=== PATIENT | female | born 1935 | race Caucasian/White ===

== ENCOUNTER → 2022-06-25 | Outpatient (REF) | payer MEDICARE, MEDICAID, SELFPAY ==
[2022-06-25 09:23] LABS: Absolute Lymphocyte Count 0.96 X10^3/uL (0.83-4.51); Absolute Neutrophil Count 2.5 X10^3/uL (2.0-7.7); Basophil# 0.03 X10^3/uL; Basophil% 0.7 % (0-1); Eosinophil# 0.36 X10^3/uL; Eosinophils% 8.3 % (0-5); Hematocrit 30.2 % (37-47); Hemoglobin 9.8 g/dL (12.0-15.0); Lymphocyte # 0.96 X10^3/ul (0.83-4.51); Mean Corp Hgb Conc 32.5 g/dL (32-36); Mean Corpuscular Volume 107.9 fL (81-99); Mean Platelet Vol. 10.8 fl (6.2-12.0); Monocyte# 0.51 X10^3/uL; Monocyte% 11.7 % (0-10); NRBC Flagged by Analyzer 0 % (0-5); Neutrophil # 2.49 X10^3/uL (2.7-7.7); Neutrophil % 57.1 % (47-70); Platelet Count 150 K/mm3 (150-450); RBC Distribution Width SD 59.3 fl (35.1-43.9); White Blood Count 4.4 K/mm3 (4.4-11.0)
[2022-06-25 09:37] LABS: Vitamin B12 798 pg/mL (211-911); Vitamin D,25 Hydroxy 33.7 ng/mL
[2022-06-25 09:43] LABS: Anion Gap 9 (5-15); BUN 44 mg/dL (7-18); BUN/Creat Ratio 8.6 RATIO (10-20); Calcium,Total 9.4 mg/dL (8.5-10.1); Chloride 94 mmol/L (98-107); Creatinine, Serum 5.14 mg/dL (0.55-1.02); EST Glomerular Filtration Rate 8 mL/min (>60); Est Glom Filt Rate - Afr Amer 10 mL/min (>60); Glucose 77 mg/dL (74-106); Magnesium 2.2 mg/dL (1.6-2.6); Potassium 4.7 mmol/L (3.5-5.1); Sodium Level 133 mmol/L (136-145)
== END ==
LOC: OLS.SW1020 05:00
PROVIDERS: Visit Provider Internal Medicine
DX: E78.5 Hyperlipidemia, unspecified (principal); F03.90 Unspecified dementia, unspecified severity, without behavioral disturbance, psychotic disturbance, mood disturbance, and anxiety; N18.6 End stage renal disease; I12.0 Hypertensive chronic kidney disease with stage 5 chronic kidney disease or end stage renal disease; I25.10 Atherosclerotic heart disease of native coronary artery without angina pectoris; K58.1 Irritable bowel syndrome with constipation
CPT/HCPCS: 36415; 80048; 82306; 82607; 83735; 84443; 85025

== ENCOUNTER → 2022-07-02 | Outpatient (REF) | payer MEDICARE, MEDICAID, SELFPAY ==
[2022-07-02 08:37] LABS: Absolute Lymphocyte Count 0.93 X10^3/uL (0.83-4.51); Absolute Neutrophil Count 2.5 X10^3/uL (2.0-7.7); Basophil# 0.04 X10^3/uL; Basophil% 0.9 % (0-1); Eosinophil# 0.38 X10^3/uL; Eosinophils% 8.8 % (0-5); Hematocrit 29.9 % (37-47); Hemoglobin 9.8 g/dL (12.0-15.0); Lymphocyte # 0.93 X10^3/ul (0.83-4.51); Lymphocyte % 21.5 % (19-41); Mean Corp Hgb Conc 32.8 g/dL (32-36); Mean Corpuscular Hgb 35.6 pg (27.0-32.0); Mean Corpuscular Volume 108.7 fL (81-99); Monocyte# 0.44 X10^3/uL; Monocyte% 10.2 % (0-10); NRBC Flagged by Analyzer 0 % (0-5); Neutrophil # 2.53 X10^3/uL (2.7-7.7); Neutrophil % 58.4 % (47-70); Platelet Count 130 K/mm3 (150-450); RBC Distribution Width CV 15.4 % (11.6-14.6); Red Blood Count 2.75 M/mm3 (4.2-5.4); White Blood Count 4.3 K/mm3 (4.4-11.0)
[2022-07-02 09:01] LABS: Albumin, Serum 3.3 g/dL (3.2-5.0); BUN 108 mg/dL (7-18); BUN/Creat Ratio 12.7 RATIO (10-20); Calcium,Total 8.8 mg/dL (8.5-10.1); Chloride 101 mmol/L (98-107); Cholesterol 99 mg/dL (200); Creatinine, Serum 8.49 mg/dL (0.55-1.02); EST Glomerular Filtration Rate 5 mL/min (>60); Est Glom Filt Rate - Afr Amer 6 mL/min (>60); Ferritin 1144 ng/mL (8-252); Glucose 80 mg/dL (74-106); High Density Lipoprotein 50 mg/dL; Iron 60 ug/dL (50-170); Phosphorus 5.3 mg/dL (2.5-4.9); Potassium 5.5 mmol/L (3.5-5.1); Sodium Level 136 mmol/L (136-145); Triglycerides 56 mg/dL; Very Low Density Lipoprotein 11 mg/dL (5-40)
== END ==
LOC: OLS.SW1020 05:00
PROVIDERS: Visit Provider Internal Medicine
DX: E78.5 Hyperlipidemia, unspecified (principal); N18.9 Chronic kidney disease, unspecified; D63.1 Anemia in chronic kidney disease
CPT/HCPCS: 36415; 80061; 80069; 82728; 83540; 85025

== ENCOUNTER → 2022-07-09 | Outpatient (REF) | payer MEDICARE, MEDICAID, SELFPAY ==
[2022-07-09 08:29] LABS: Absolute Neutrophil Count 2.6 X10^3/uL (2.0-7.7); Basophil# 0.02 X10^3/uL; Basophil% 0.5 % (0-1); Eosinophil# 0.43 X10^3/uL; Hematocrit 31.6 % (37-47); Lymphocyte % 18.7 % (19-41); Mean Corp Hgb Conc 31.6 g/dL (32-36); Mean Corpuscular Hgb 34.1 pg (27.0-32.0); Mean Corpuscular Volume 107.8 fL (81-99); Mean Platelet Vol. 11.8 fl (6.2-12.0); Monocyte% 9.3 % (0-10); NRBC Flagged by Analyzer 0 % (0-5); Neutrophil # 2.61 X10^3/uL (2.7-7.7); Platelet Count 139 K/mm3 (150-450); RBC Distribution Width CV 15.1 % (11.6-14.6); RBC Distribution Width SD 59.8 fl (35.1-43.9); Red Blood Count 2.93 M/mm3 (4.2-5.4); White Blood Count 4.3 K/mm3 (4.4-11.0)
[2022-07-09 08:33] LABS: BUN 48 mg/dL (7-18); BUN/Creat Ratio 9.3 RATIO (10-20); Calcium,Total 8.1 mg/dL (8.5-10.1); Chloride 97 mmol/L (98-107); Creatinine, Serum 5.14 mg/dL (0.55-1.02); EST Glomerular Filtration Rate 8 mL/min (>60); Est Glom Filt Rate - Afr Amer 10 mL/min (>60); Glucose 79 mg/dL (74-106); Phosphorus 3.1 mg/dL (2.5-4.9); Potassium 5.1 mmol/L (3.5-5.1); Sodium Level 135 mmol/L (136-145)
== END ==
LOC: OLS.SW1020 05:00
PROVIDERS: Visit Provider Internal Medicine
DX: Z99.2 Dependence on renal dialysis (principal); Z79.899 Other long term (current) drug therapy
CPT/HCPCS: 36415; 80069; 85025

== ENCOUNTER → 2022-08-06 | Outpatient (REF) | payer MEDICARE, MEDICAID, SELFPAY ==
[2022-08-06 09:37] LABS: Albumin, Serum 3.6 g/dL (3.2-5.0); BUN 59 mg/dL (7-18); CPK Total, Creatine Kinase 109 U/L (26-192); Calcium,Total 9.2 mg/dL (8.5-10.1); Chloride 98 mmol/L (98-107); Creatinine, Serum 5.38 mg/dL (0.55-1.02); EST Glomerular Filtration Rate 8 mL/min (>60); Est Glom Filt Rate - Afr Amer 10 mL/min (>60); Glucose 86 mg/dL (74-106); Magnesium 1.9 mg/dL (1.6-2.6); Phosphorus 3.8 mg/dL (2.5-4.9); Potassium 4.8 mmol/L (3.5-5.1); Sodium Level 135 mmol/L (136-145)
== END ==
LOC: OLS.SW500 05:00
PROVIDERS: Visit Provider Internal Medicine
DX: N18.6 End stage renal disease (principal)
CPT/HCPCS: 36415; 80069; 82550; 83735

== ENCOUNTER → 2022-08-19 | Outpatient (REF) | payer MEDICARE, SELFPAY ==
[2022-08-19 08:25] LABS: Absolute Lymphocyte Count 0.79 X10^3/uL (0.83-4.51); Absolute Neutrophil Count 3.9 X10^3/uL (2.0-7.7); Basophil# 0.03 X10^3/uL; Basophil% 0.6 % (0-1); Eosinophil# 0.34 X10^3/uL; Eosinophils% 6.3 % (0-5); Hematocrit 27.2 % (37-47); Hemoglobin 8.9 g/dL (12.0-15.0); Lymphocyte # 0.79 X10^3/ul (0.83-4.51); Lymphocyte % 14.5 % (19-41); Mean Corp Hgb Conc 32.7 g/dL (32-36); Mean Corpuscular Hgb 34.8 pg (27.0-32.0); Mean Corpuscular Volume 106.3 fL (81-99); Mean Platelet Vol. 11.5 fl (6.2-12.0); Monocyte# 0.32 X10^3/uL; Monocyte% 5.9 % (0-10); NRBC Flagged by Analyzer 0 % (0-5); Neutrophil # 3.94 X10^3/uL (2.7-7.7); Neutrophil % 72.3 % (47-70); Platelet Count 123 K/mm3 (150-450); RBC Distribution Width CV 14.2 % (11.6-14.6); RBC Distribution Width SD 55.1 fl (35.1-43.9); Red Blood Count 2.56 M/mm3 (4.2-5.4); White Blood Count 5.4 K/mm3 (4.4-11.0)
[2022-08-19 08:27] LABS: Anion Gap 12 (5-15); BUN 87 mg/dL (7-18); BUN/Creat Ratio 11.9 RATIO (10-20); Calcium,Total 9.2 mg/dL (8.5-10.1); Chloride 102 mmol/L (98-107); EST Glomerular Filtration Rate 6 mL/min (>60); Est Glom Filt Rate - Afr Amer 7 mL/min (>60); Glucose 94 mg/dL (74-106); Potassium 5.2 mmol/L (3.5-5.1); Sodium Level 140 mmol/L (136-145)
== END ==
LOC: OLS.SW 05:00
PROVIDERS: Visit Provider Internal Medicine
DX: R41.82 Altered mental status, unspecified (principal); R41.0 Disorientation, unspecified
CPT/HCPCS: 36415; 80048; 85025

== ENCOUNTER → 2022-09-02 | Outpatient (REF) | payer MEDICARE, SELFPAY | LOC: OLS.SW 04:00 | PROVIDERS: Referring Provider Internal Medicine; Visit Provider Internal Medicine | DX: E03.9 Hypothyroidism, unspecified (principal); N18.6 End stage renal disease | CPT/HCPCS: 36415; 84443 ==

== ENCOUNTER → 2022-09-03 | Outpatient (REF) | payer MEDICARE, SELFPAY ==
[2022-09-03 08:09] LABS: Absolute Lymphocyte Count 0.96 X10^3/uL (0.83-4.51); Basophil# 0.03 X10^3/uL; Basophil% 0.6 % (0-1); Eosinophil# 0.27 X10^3/uL; Eosinophils% 5.8 % (0-5); Hematocrit 28.4 % (37-47); Hemoglobin 9.2 g/dL (12.0-15.0); Lymphocyte # 0.96 X10^3/ul (0.83-4.51); Lymphocyte % 20.8 % (19-41); Mean Corp Hgb Conc 32.4 g/dL (32-36); Mean Corpuscular Hgb 33.8 pg (27.0-32.0); Mean Corpuscular Volume 104.4 fL (81-99); Mean Platelet Vol. 11.8 fl (6.2-12.0); Monocyte# 0.39 X10^3/uL; Monocyte% 8.4 % (0-10); NRBC Flagged by Analyzer 0 % (0-5); Neutrophil # 2.96 X10^3/uL (2.7-7.7); Neutrophil % 64.2 % (47-70); Platelet Count 145 K/mm3 (150-450); RBC Distribution Width CV 14.5 % (11.6-14.6); RBC Distribution Width SD 54.7 fl (35.1-43.9); Red Blood Count 2.72 M/mm3 (4.2-5.4); White Blood Count 4.6 K/mm3 (4.4-11.0)
[2022-09-03 08:15] LABS: Anion Gap 12 (5-15); BUN 51 mg/dL (7-18); BUN/Creat Ratio 9.6 RATIO (10-20); Calcium,Total 9.3 mg/dL (8.5-10.1); Chloride 94 mmol/L (98-107); Creatinine, Serum 5.33 mg/dL (0.55-1.02); EST Glomerular Filtration Rate 8 mL/min (>60); Est Glom Filt Rate - Afr Amer 10 mL/min (>60); Glucose 101 mg/dL (74-106); Potassium 4.5 mmol/L (3.5-5.1); Sodium Level 134 mmol/L (136-145)
== END ==
LOC: OLS.SW 05:00
PROVIDERS: Visit Provider Internal Medicine
DX: I12.0 Hypertensive chronic kidney disease with stage 5 chronic kidney disease or end stage renal disease (principal); N18.9 Chronic kidney disease, unspecified; D64.9 Anemia, unspecified
CPT/HCPCS: 36415; 80048; 85025

== ENCOUNTER 2022-10-17 16:07 | Inpatient (IN) | payer MEDICARE, MEDICAID, SELFPAY ==
[2022-10-17] VITALS (11 sets, daily range): BP systolic 167–223; BP diastolic 46–98; PULSE 58–88; RESP 16; TEMP 36.6–37.2; O2SAT 65–99; BMI 27.6; BMI 26.6
--- NOTE | 2022-10-17 16:30 | EKG12_ITS ---
Test Reason : abnl lans Blood Pressure : / mmHG Vent. Rate : 064 BPM Atrial Rate : 064 BPM P-R Int : 170 ms QRS Dur : 104 ms QT Int : 442 ms P-R-T Axes : 038 004 199 degrees QTc Int : 455 ms Normal sinus rhythm Consider Left ventricular hypertrophy ST/T wave abnormality: Consider LVH repolarziation vs myocardial ischemia Abnormal ECG Confirmed by MENDEZ OCHOA, AG ([id number]), international editorial producer AMILCAR WELLINGTON ([id number]) on 10/22/2022 12:58:01 PM Referred By: Tal Confirmed By:AG SIMMS MD
--- NOTE | 2022-10-17 16:31 | EX.ED.DYSGE1 ---
HPI History of Present Illness Chief Complaint: Abn Labs Informant: patient Narrative Narrative: Patient was sent in for an elevated troponin. I do not know the back story of why this was ordered. However, the patient does state that she had a bad episode of epigastric and lower chest pain that she thinks was about 2 weeks ago. It did not last more than a few minutes as she recalls. She was told that it was just an upset stomach and it would get better. My suspicion is that her physician heard the story and order this troponin out of caution. But her troponin is significantly elevated at 651. She is asymptomatic now. She states she has not been having dyspnea or chest pain since that 1 event. She initially denied any history of heart disease but then she states that she did have a stent in her heart somewhere in the past. I also note that she had right carotid endarterectomy surgery before. She is on aspirin. When I went back to check the patient, I asked her the story again. She now tells me that she had this episode about 2 weeks ago. But she also tells me that 2 days ago she had an episode of discomfort in her chest. She felt short of breath. She felt her heart pounding. She states the nurse there got her oxygen and did everything she could do for me. This lasted what sounds like an hour or 2 and she has felt good since. Now I am concerned that the patient has had 2 episodes of chest pain in the last 2 weeks with elevated troponin and slightly abnormal EKG. [facility] Medical History Anemia Atherosclerotic heart disease End stage renal disease Hypertensive chronic kidney disease Hypothyroidism IBS (irritable bowel syndrome) Allergy/AdvReac Type Severity Reaction Status Date / Time codeine Allergy NEEDS Verified 10/17/22 16:08 FOLLOW-UP Social History Smoking Status: Never smoker ROS ROS ED Constitutional Constitutional ED: Denies chills or fever(s) Eyes Eyes: Denies change in vision ENT ENT ED: Denies rhinorrhea or sore throat Cardiovascular Cardiovascular: Reports chest pain and other Details: Episode about 2 weeks ago as in history of present illness. no symptoms now ; Denies palpitations or racing heartbeat Respiratory/Chest Respiratory/Chest: Denies cough or dyspnea Gastrointestinal Gastrointestinal: Reports abdominal pain and other Details: Patient had the episode of epigastric pain about 2 weeks ago. But none now. She has been eating and drinking fine. ; Denies nausea or vomiting Genitourinary Genitourinary ED: Denies hematuria Musculoskeletal Musculoskeletal: Denies back pain or neck pain Neurologic Neurologic: Denies headache(s) Endocrine Endocrinology: Denies polydipsia or polyuria Hematologic/Lymphatic Hematologic/Lymphatic: Denies anemia Allergic/Immunologic Allergic/Immunologic ED: Denies urticaria EXAM Physical Exam Const Vital Signs: 10/17/22 16:09 10/17/22 16:12 10/17/22 17:07 Temperature 97.8 F Temperature Source Temporal Pulse Rate 65 78 Respiratory Rate 16 16 Respiratory Effort Normal Respiratory Pattern Normal Blood Pressure 217/72 H 179/78 H Blood Pressure Mean 120 111 Pulse Ox 95 99 Oxygen Delivery Method Room Air Room Air 10/17/22 17:48 10/17/22 18:00 10/17/22 19:00 Temperature Temperature Source Pulse Rate 61 78 68 Respiratory Rate 16 16 16 Respiratory Effort Respiratory Pattern Blood Pressure 216/67 H 203/86 H 223/94 H Blood Pressure Mean 116 125 137 Pulse Ox 65 99 95 Oxygen Delivery Method Room Air Room Air Positive well nourished General Appearance ED: NAD HEENT Reports moist mucous membranes Eyes General Eye ED: Negative for scleral icterus Neck supple and no JVD Neck Narrative: Patient is a right carotid endarterectomy scar that is well-healed. Chest Wall inspection of chest normal Resp normal respiratory effort and clear to auscultation bilaterally Cardio regular rate and regular rhythm GI normal to inspection, nondistended, normoactive bowel sounds and non-tender Back/Spine no CVA tenderness Extremity Extremity Narrative: Shunt has good frail and left upper arm for her dialysis. She gets dialysis Friday and Friday. General Extremety ED: Negative for tenderness Neuro Neuro Narrative: Patient is awake and oriented. She is not the best informant for times in some details but overall is pretty reasonable. She does have history of mild dementia. Psych mental status grossly normal Skin no rashes or lesions noted MDM MDM MDM Narrative Medical decision making narrative: Chest x-ray shows mild atelectasis. CBC shows mild anemia at 9.9. This is not new. Electrolytes show no marked abnormalities other than elevated BUN/creatinine consistent with her renal failure and dialysis. But her troponin was still up. Its 554. This has come down somewhat. But this may match an event that occurred about 2 days ago. She has nonspecific EKG changes that could be LVH but could also be residual recent NC. She will be brought in the hospital. She does take daily aspirin. We will increase from baby aspirin to full strength. Lab Data Attestation: I reviewed the patient's lab results. Labs: Laboratory Results - last 24 hr 10/17/22 10/17/22 16:18 16:18 WBC 4.9 RBC 2.74 L Hgb 9.9 L Hct 30.3 L MCV 110.6 H MCH 36.1 H MCHC 32.7 RDW Std Deviation 61.4 H RDW Coeff of Sotero 16.1 H Plt Count 187 MPV 11.2 Immature Gran % (Auto) 1.000 H Neut % (Auto) 57.7 Lymph % (Auto) 24.0 [place] % (Auto) 11.4 H Eos % (Auto) 4.9 Baso % (Auto) 1.0 Absolute Neuts (auto) 2.8 Absolute Lymphs (auto) 1.18 Nucleated RBC % 0 Sodium 135 L Potassium 3.9 Chloride 96 L Carbon Dioxide 31.0 Anion Gap 8 BUN 43 H Creatinine 5.40 H Estim Creat Clear Calc 6.96 Est GFR (MDRD) Af Amer 10 L Est GFR (MDRD) Non-Af 8 L BUN/Creatinine Ratio 8.0 L Glucose 128 H Calcium 9.2 Troponin I High Sens 554 H* Radiography Diagnostic Testing: Clinical Impression(s) from Imaging Studies Chest X-Ray 10/17/22 16:40 IMPRESSION: Left lung base atelectasis. Electronically Signed: Gómez Auguste MD at 16:50 EST , X-ray hints of very mild left lung atelectasis. EKG Initial EKG: Comments: EKG done due to history of elevated troponin read by me showed normal sinus rhythm with overall rate of 64. No ventricular ectopy is noted. There is some signs of LVH. There are some diffuse changes that could be LVH but also could be recent NC with some T wave inversions. [place] interval, QRS duration and QTc are normal. I do not have a prior EKG available in our system to compare to. Discharge Plan Triage Chief Complaint: Abn Labs ED Provider: Jeffrey Parada Dx/Rx/DC Orders Clinical Impression: Non-ST elevation NC (NSTEMI), Acute electrocardiogram changes, Chronic kidney failure Primary Care Provider: Cat Holman Referrals: Cat Holman MD [Primary Care Provider] - Disposition Disposition: Acute Care Hospital [facility]
--- NOTE | 2022-10-17 16:40 | RAD_ITS ---
INDICATION: Chest pain EXAMINATION/TECHNIQUE: X-RAY - XR Chest 1 View COMPARISON: None. FINDINGS: LINES/DEVICES: None. LUNGS: Left lung base atelectasis. No consolidation, edema or effusion. No pneumothorax. MEDIASTINUM AND CARDIOVASCULAR STRUCTURES: Mild cardiomegaly with normal mediastinal contours. RAD/Chest 1 View (Portable) IMPRESSION: Left lung base atelectasis. Electronically Signed: Gómez Auguste MD at 16:50 EST ,
[2022-10-17 17:03] LABS: Absolute Lymphocyte Count 1.18 X10^3/uL (0.83-4.51); Absolute Neutrophil Count 2.8 X10^3/uL (2.0-7.7); Basophil# 0.05 X10^3/uL; Eosinophil# 0.24 X10^3/uL; Eosinophils% 4.9 % (0-5); Hematocrit 30.3 % (37-47); Hemoglobin 9.9 g/dL (12.0-15.0); Lymphocyte # 1.18 X10^3/ul (0.83-4.51); Mean Corp Hgb Conc 32.7 g/dL (32-36); Mean Corpuscular Hgb 36.1 pg (27.0-32.0); Mean Corpuscular Volume 110.6 fL (81-99); Mean Platelet Vol. 11.2 fl (6.2-12.0); Monocyte# 0.56 X10^3/uL; Monocyte% 11.4 % (0-10); NRBC Flagged by Analyzer 0 % (0-5); Neutrophil # 2.84 X10^3/uL (2.7-7.7); Neutrophil % 57.7 % (47-70); Platelet Count 187 K/mm3 (150-450); RBC Distribution Width CV 16.1 % (11.6-14.6); RBC Distribution Width SD 61.4 fl (35.1-43.9); Red Blood Count 2.74 M/mm3 (4.2-5.4); White Blood Count 4.9 K/mm3 (4.4-11.0)
[2022-10-17 17:30] LABS: Anion Gap 8 (5-15); BUN 43 mg/dL (7-18); Calcium,Total 9.2 mg/dL (8.5-10.1); Chloride 96 mmol/L (98-107); EST Glomerular Filtration Rate 8 mL/min (>60); Est Glom Filt Rate - Afr Amer 10 mL/min (>60); Estimated Creatinine Clearance 6.96 ml/min; Glucose 128 mg/dL (74-106); Potassium 3.9 mmol/L (3.5-5.1); Sodium Level 135 mmol/L (136-145); Troponin-I HS 554 pg/mL (3.0-54.0)
--- NOTE | 2022-10-17 18:04 | EKG12_ITS ---
Test Reason : repeat cp Blood Pressure : / mmHG Vent. Rate : 058 BPM Atrial Rate : 058 BPM P-R Int : 164 ms QRS Dur : 102 ms QT Int : 450 ms P-R-T Axes : 021 007 224 degrees QTc Int : 441 ms Sinus bradycardia Consider Left ventricular hypertrophy ST/T wave abnormality: Consider LVH repolarization vs myocardial ischemia Abnormal ECG Confirmed by MENDEZ OCHOA, AG ([id number]), film editor supervisor AMILCAR WELLINGTON ([id number]) on 10/22/2022 12:58:49 PM Referred By: Tal Confirmed By:AG SIMMS MD
--- NOTE | 2022-10-17 18:09 | NURSING ---
NO OLD EKGS
--- NOTE | 2022-10-17 20:03 | HP.PCM.HOS_ITS ---
HPI - General General Date of Admission: 10/17/22 Date of Service: 10/17/22 Chief Complaint: Chest pain HPI Narrative The patient is an 87 y/o F w PMHx: CAD s/p PCI, Suspected carotid disease s/p BL CEA, HTN, HLD, Hypothyroidism, Chronic anemia, IBS, Dementia unclear type with unclear behavioral disturbance history, Chronic Hyperkalemia, Anxiety who presents to the [facility] ED on 10/17/22 with history of epigastric and lower chest discomfort approximately 2 weeks prior lasting only minutes however her PCP at that time had ordered repeat troponin out of caution and this was reportedly elevated at 651 prompting referral the ED for evaluation. Patient currently is asymptomatic and has had no episodes since with no chest discomfort or dyspnea. She then notes another episode 2-3 days prior with chest pounding sensation, midsternal with dyspnea which resolved quickly. She rates the discomfort that she had on a scale of 1-10 approximately 3-4 out of 10 at its height. Work-up in the ED included T97.8, heart rate 65, BP 217/72, respiratory rate 16, 95% on room air, CBC with WC 4.9, hemoglobin 9.9, MCV 110.6, platelet 180 with increase d immature granulocytes, BMP with sodium 135, chloride 96, BUN/10 and 43/5.40, glucose 128, troponin 554, chest x-ray with left lung base atelectasis, EKG with sinus rhythm with diffuse changes possibly LVH with some T wave inversions with no prior EKG for comparison. In the ED patient administered FS ASA. [facility] Medical History (Updated 10/17/22 @ 23:[address] Estrellita Mcdowell MD) Anemia Asthma Atherosclerotic heart disease Carotid disease, bilateral Dementia DVT (deep venous thrombosis) End stage renal disease Hypertension Hypothyroidism IBS (irritable bowel syndrome) TIA (transient ischemic attack) Allergy/AdvReac Type Severity Reaction Status Date / Time codeine Allergy NEEDS Verified 10/17/22 16:08 FOLLOW-UP Family History (Updated 10/17/22 @ 23:[address] Estrellita Mcdowell MD) Mother Diabetes Father Diabetes Surgical History (Updated 10/17/22 @ 23:[address] Estrellita Mcdowell MD) H/O coronary angioplasty History of back surgery History of total left knee replacement S/p bilateral carotid endarterectomy Social History (Updated 10/17/22 @ 23:[address] Estrellita Mcdowell MD) household members: none housing: care home Smoking Status: Never smoker alcohol intake: never substance use type: does not use ROS ROS Narrative Admission Review of Systems: CONSTITUTIONAL: No weight loss, fever, chills, + weakness or fatigue. HEENT: Eyes: No visual loss, blurred vision, double vision or yellow sclerae. Ears, Nose, Throat: No hearing loss, sneezing, congestion, runny nose or sore throat. SKIN: No rash or itching, lesions, wounds. CARDIOVASCULAR: + Chest pain, No palpitations, edema, orthopnea, syncopal events. RESPIRATORY: + Shortness of breath, No cough or sputum, wheezing, hemoptysis. GASTROINTESTINAL: No anorexia, nausea, vomiting or diarrhea, abdominal pain, melena, BRBPR. GENITOURINARY: No dysuria, frequency, urgency or retention. NEUROLOGICAL: No headache, dizziness, syncope, paralysis, ataxia, numbness or tingling in the extremities, focal weakness, change in bowel or bladder control, seizure. MUSCULOSKELETAL: + muscle, back pain, joint pain or stiffness. HEMATOLOGIC: + anemia, bleeding or bruising. LYMPHATICS: No enlarged nodes. No history of splenectomy. PSYCHIATRIC: + history of anxiety. ENDOCRINOLOGIC: No reports of sweating, cold or heat intolerance. No polyuria or polydipsia. ALLERGIES: No history of asthma, hives, eczema or rhinitis. Vital Signs Vital Signs Vital Signs: 10/17/22 16:09 10/17/22 16:12 10/17/22 17:07 Temperature 97.8 F Temperature Source Temporal Pulse Rate 65 78 Respiratory Rate 16 16 Respiratory Effort Normal Respiratory Pattern Normal Blood Pressure 217/72 H 179/78 H Blood Pressure Mean 120 111 Pulse Ox 95 99 Oxygen Delivery Method Room Air Room Air 10/17/22 17:48 10/17/22 18:00 10/17/22 19:00 Temperature Temperature Source Pulse Rate 61 78 68 Respiratory Rate 16 16 16 Respiratory Effort Respiratory Pattern Blood Pressure 216/67 H 203/86 H 223/94 H Blood Pressure Mean 116 125 137 Pulse Ox 65 99 95 Oxygen Delivery Method Room Air Room Air Weight Weight: 132 lb 7.965 oz Body Mass Index (BMI) 27.6 Physical Exam Narrative Physical Examination: General: Awake, alert, oriented x 3 and cooperative, seated upright in the ED bed in no apparent distress, denies any current chest discomfort or dyspnea. Skin: Normal color, normal turgor, no icterus, no cyanosis except occasional staged ecchymoses. HEENT: AT/NC, EOMI, PERRLA, MMM, no carotid bruits or JVD noted. Lungs: Mild diminished, greater bases, poor effort, no rales, ronchi or wheezing. Heart: Currently regular rate and rhythm; no gallop, rub audible, no reproducible chest discomfort. Abdomen: Soft, NTTP, ND, distant normal BS, no HSM. Extremities: No cyanosis, clubbing, or edema. Neurological: Patient awake, alert, oriented as noted, cognitive function intact; pupils equally reactive to light and accommodation, cranial nerves II- XII grossly normal, moving all 4 extremities, no focal deficits, strength moderately globally Natacha secondary to acute complaints. Psychiatric: Affect appears fatigued otherwise normal, no acute evidence of depressive or anxiety feelings. Results Lab / Micro Data Result Diagrams: 10/17/22 16:18 10/17/22 16:18 Labs: Laboratory Results - last 24 hr 10/17/22 16:18: WBC 4.9, RBC 2.74 L, Hgb 9.9 L, Hct 30.3 L, MCV 110.6 H, MCH 36.1 H, MCHC 32.7, RDW Std Deviation 61.4 H, RDW Coeff of Sotero 16.1 H, Plt Count 187, MPV 11.2, Immature Gran % (Auto) 1.000 H, Neut % (Auto) 57.7, Lymph % (Auto) 24.0, [place] % (Auto) 11.4 H, Eos % (Auto) 4.9, Baso % (Auto) 1.0, Absolute Neuts (auto) 2.8, Absolute Lymphs (auto) 1.18, Nucleated RBC % 0 10/17/22 16:18: Sodium 135 L, Potassium 3.9, Chloride 96 L, Carbon Dioxide 31.0, Anion Gap 8, BUN 43 H, Creatinine 5.40 H, Estim Creat Clear Calc 6.96, Est GFR (MDRD) Af Amer 10 L, Est GFR (MDRD) Non-Af 8 L, BUN/Creatinine Ratio 8.0 L, Glucose 128 H, Calcium 9.2, Troponin I High Sens 554 H* Radiology Impression Chest X-Ray 10/17/22 16:40 IMPRESSION: Left lung base atelectasis. Electronically Signed: Gómez Auguste MD at 16:50 EST , Assessment & Plan Assessment/Plan (1) Non-ST elevation [place] (NSTEMI): PLAN: Plan The patient is an 87 y/o F w PMHx: CAD s/p PCI, Suspected carotid disease s/p BL CEA, HTN, HLD, Hypothyroidism, Chronic anemia, IBS, Dementia unclear type with u nclear behavioral disturbance history, Chronic Hyperkalemia, Anxiety who presents to the [facility] ED on 10/17/22 with history of epigastric and lower chest discomfort approximately 2 weeks prior lasting only minutes however her PCP at that time had ordered repeat troponin out of caution and this was reportedly elevated at 651 prompting referral the ED for evaluation. #1. Chest Pain w/ Acute NSTEMI: ED evaluation with troponin 554, chest x-ray with left lung base atelectasis, EKG with sinus rhythm with diffuse changes possibly LVH with some T wave inversions with no prior EKG for comparison. Will admit to PCU, maintain on a monitored bed, continue serial cardiac enzymes and EKGs. Obtain magnesium level upon admission. Start Heparin drip. Continue medical. Cardiology consulted. ECHO requested. Maintain NPO after midnight. ASA, NG, morphine. #2. ESRD: ESRD on HD MTWF, admission BUN/10 and 43/5.40, similar to prior noted, nephrology consulted, pending. #3. Dementia, unclear type with unclear behavioral disturbance history: We will continue patient home donepezil regimen, maintain on fall and aspiration precautions, therapies and case management consulted. #4. Chronic Hyperkalemia: Patient chronically takes lokelma outpatient, currently potassium 3.9, last noted regimen filled 10/02/2022 for 14 tablets only, will cautiously monitor and if necessary may dose with Kayexalate as Lo kelma is not on formulary. #5. Chronic anemia, macrocytic, AOCD: Admission hemoglobin 9.9, MCV 110.6, baseline appears primarily 9 range, stable, continue to trend, continue supplementations. #6. CAD: Status post PCI per patient report, we will continue patient home aspirin, statin, losartan, Coreg home regimen. #7. Hypertension: Continue home regimen including amlodipine, Coreg, losartan, doxazosin, hydralazine, hydrochlorothiazide, PRN hydralazine. #8. Hyperlipidemia: We will continue patient on statin therapy #9. Hypothyroidism: We will continue patient home levothyroxine regimen. #10. Anxiety: We will continue patient home BuSpar regimen. #11. Carotid disease: Per physical exam likely history of carotid disease and evidence of right CEA, continue aspirin, statin, hypertensive regimen as noted. #12. DVT prophylaxis: SCDs, heparin drip. #13. CODE status: Patient CHRIS is her friend at least per records specifically [place] and living will is currently in place. Discussed CODE status at length including difference between FULL code, DNR-CCA and DNR-CC status. Following discussions about the differences in these status, requested Full Code status. Advanced Care Planning Face to Face Time: 16 minutes. Charges/Coding Visit Charges Inpatient E&M: 02288 Init Hosp L3 Procedures Hospitalists Procedures: [id number] Advncd Care Plan 30 Min
[2022-10-17] MEDS: Aspirin 81 MG TAB.CHEW 243 MG PO (20:53)
--- NOTE | 2022-10-17 21:20 | EKG12_ITS ---
Test Reason : AM EKG Blood Pressure : / mmHG Vent. Rate : 058 BPM Atrial Rate : 058 BPM P-R Int : 176 ms QRS Dur : 100 ms QT Int : 494 ms P-R-T Axes : 053 040 221 degrees QTc Int : 484 ms Sinus bradycardia Left ventricular hypertrophy ST/T wave abnormality: Consider LVH repolarization vs myocardial ischemia Abnormal ECG Confirmed by MENDEZ OCHOA, AG ([id number]), science editor AMILCAR WELLINGTON ([id number]) on 10/24/2022 9:54:10 AM Referred By: Confirmed By:AG SIMMS MD
[2022-10-17 22:03] LABS: Magnesium 2.2 mg/dL (1.6-2.6); Phosphorus 2.5 mg/dL (2.5-4.9)
[2022-10-17 23:15] LABS: Troponin-I HS 473 pg/mL (3.0-54.0)
[2022-10-17] MEDS: Carvedilol 6.25 MG Tablet PO (23:51)
[2022-10-17] MEDS: Atorvastatin Calcium 20 MG Tablet PO (23:51)
[2022-10-17] MEDS: hydrALAZINE 50 MG Tablet PO (23:51)
[2022-10-17] MEDS: Donepezil HCl 5 MG Tablet PO (23:52)
[2022-10-18] VITALS (20 sets, daily range): BP systolic 95–201; BP diastolic 39–59; PULSE 47–64; RESP 14–19; TEMP 36.5–36.9; O2SAT 94–99
[2022-10-18 00:06] LABS: International Normalized Ratio 1.2; Prothrombin Time (Protime)PT. 15.1 SECONDS (11.7-14.9)
[2022-10-18 00:07] LABS: Partial Thromboplast Time 38.6 Seconds (24.1-36.2)
[2022-10-18] MEDS: Doxazosin 1 MG Tablet 2 MG PO ×3 (00:14→21:10)
[2022-10-18 00:17] LABS: Troponin-I HS 492 pg/mL (3.0-54.0)
[2022-10-18] MEDS: Heparin Injection (Vial) 5,000 UNIT/ML VIAL 3500 UNIT IV (00:18)
[2022-10-18] MEDS: HEPARIN/D5w 25,000 UNITS 25,000 UNITS/250 ML IV.SOLN. 7 UNITS CONT INF (00:18)
[2022-10-18] MEDS: 0.9% Saline Lock 10 ML Syringe IV ×3 (00:20→12:57)
[2022-10-18 06:19] LABS: Absolute Lymphocyte Count 0.89 X10^3/uL (0.83-4.51); Absolute Neutrophil Count 2.1 X10^3/uL (2.0-7.7); Basophil# 0.03 X10^3/uL; Basophil% 0.8 % (0-1); Eosinophil# 0.32 X10^3/uL; Eosinophils% 8.5 % (0-5); Hematocrit 25.7 % (37-47); Hemoglobin 8.5 g/dL (12.0-15.0); Lymphocyte # 0.89 X10^3/ul (0.83-4.51); Lymphocyte % 23.6 % (19-41); Mean Corp Hgb Conc 33.1 g/dL (32-36); Mean Corpuscular Hgb 36.8 pg (27.0-32.0); Mean Corpuscular Volume 111.3 fL (81-99); Monocyte# 0.42 X10^3/uL; Monocyte% 11.1 % (0-10); NRBC Flagged by Analyzer 0 % (0-5); Neutrophil # 2.11 X10^3/uL (2.7-7.7); Platelet Count 147 K/mm3 (150-450); RBC Distribution Width CV 16.4 % (11.6-14.6); RBC Distribution Width SD 63.1 fl (35.1-43.9); Red Blood Count 2.31 M/mm3 (4.2-5.4); White Blood Count 3.8 K/mm3 (4.4-11.0)
[2022-10-18 06:31] LABS: Partial Thromboplast Time 87.1 Seconds (24.1-36.2)
[2022-10-18 06:49] LABS: Troponin-I HS 412 pg/mL (3.0-54.0)
[2022-10-18 06:52] LABS: AST(SGOT) 22 U/L (15-37); Alanine Aminotransfer ALT/SGPT 27 U/L (13-56); Albumin, Serum 2.7 g/dL (3.2-5.0); Alkaline Phosphatase 68 U/L (45-117); Anion Gap 7 (5-15); BUN 53 mg/dL (7-18); BUN/Creat Ratio 8.5 RATIO (10-20); Calcium,Total 8.3 mg/dL (8.5-10.1); Chloride 101 mmol/L (98-107); Cholesterol 122 mg/dL (200); EST Glomerular Filtration Rate 7 mL/min (>60); Est Glom Filt Rate - Afr Amer 8 mL/min (>60); Estimated Creatinine Clearance 5.83 ml/min; Globulin 2.7 g/dL (2.2-4.2); Glucose 100 mg/dL (74-106); High Density Lipoprotein 48 mg/dL; Potassium 3.7 mmol/L (3.5-5.1); Protein, Total 5.4 g/dL (6.4-8.2); Sodium Level 138 mmol/L (136-145); Triglycerides 43 mg/dL; Very Low Density Lipoprotein 9 mg/dL (5-40)
--- NOTE | 2022-10-18 08:57 | ECHOD_ITS ---
Reason For Study: S/P MA Procedure This was a 2D Doppler, Color Flow transthoracic echocardiogram. Exam performed portable in patient room. Left Ventricle Normal LV size. Mild concentric left ventricular hypertrophy. Left ventricular systolic function is normal. The estimated ejection fraction is 55 %. Stage 2 diastolic dysfunction. No regional wall motion abnormalities noted. Right Ventricle Normal RV size. Normal systolic function. Atria The left atrium is moderately enlarged. Normal right atrium. No doppler evidence for ASD. Mitral Valve There is moderate to severe mitral annular calcification. Extension of the mitral annular calcification onto the base of the posterior mitral valve leaflet. Moderate (2+) eccentric mitral valve insufficiency. Tricuspid Valve Normal tricuspid valve. Mild to moderate (1-2+) eccentric tricuspid valve insufficiency. Right ventricular systolic pressure estimated to be 79 mmHg. Severe pulmonary hypertension. Aortic Valve Trisinus/trileaflet aortic valve. Mild diffuse aortic valve thickening. Mild focal aortic valve calcification. Pulmonic Valve The pulmonic valve is not well visualized. Trivial pulmonic valve insufficiency. Great Vessels Normal sized aortic root. Calcified aortic root. Pericardium/Pleural No pericardial effusion. MMode/2D Measurements & Calculations LVIDd: 4.9 cm IVSd: 1.3 cm Ao root diam: 3.2 cm LVIDs: 3.7 cm LVPWd: 1.4 cm RVDd: 3.3 cm FS: 24.6 % LAV(MOD-sp4): 105.7 ml LVAd ap4: 25.9 cm2 SV(MOD-sp4): 29.6 ml LVLd ap4: 7.6 cm EDV(MOD-sp4): 73.1 ml EDV(sp4-el): 74.9 ml LVAs ap4: 19.0 cm2 LVLs ap4: 7.2 cm ESV(MOD-sp4): 43.5 ml ESV(sp4-el): 42.2 ml EF(MOD-sp4): 40.5 % EF(sp4-el): 43.6 % SV(sp4-el): 32.7 ml LA A4 area: 30.1 cm2 LA dimension(2D): 4.7 cm RA A4 area: 15.0 cm2 Time Measurements MV dec time: 0.22 sec Doppler Measurements & Calculations MV E max turner: 119.2 cm/sec Lat Peak E' Turner: 10.3 cm/sec Med Peak E' Turner: 4.4 cm/sec MV A max turner: 106.2 cm/sec E/E' lat: 11.6 E/E' med: 26.9 MV E/A: 1.1 MV V2 max: 135.1 cm/sec Ao V2 max: 190.7 cm/sec MV max P.3 mmHg MV dec slope: 542.5 cm/sec2 Ao max P.6 mmHg MV V2 mean: 73.7 cm/sec Ao V2 mean: 130.1 cm/sec MV mean P.6 mmHg Ao mean P.6 mmHg MV V2 VTI: 43.1 cm Ao V2 VTI: 48.5 cm AV (velocity ratio): 0.79 LV V1 max: 146.7 cm/sec PA V2 max: 105.6 cm/sec TR max turner: 398.9 cm/sec LV V1 max P.7 mmHg PA V2 mean: 77.2 cm/sec TR max P.7 mmHg LV V1 mean P.4 mmHg LV V1 mean: 96.3 cm/sec LV V1 VTI: 38.5 cm ECHO/Echo Complete Interpretation Summary Left ventricular systolic function is normal. The estimated ejection fraction is 55 %. Mild concentric left ventricular hypertrophy. The left atrium is moderately enlarged. There is moderate to severe mitral annular calcification. Extension of the mitral annular calcification onto the base of the posterior mi tral valve leaflet. Moderate (2+) eccentric mitral valve insufficiency. Mild to moderate (1-2+) eccentric tricuspid valve insufficiency. Mild diffuse aortic valve thickening. Mild focal aortic valve calcification. Trivial pulmonic valve insufficiency. Calcified aortic root. Right ventricular systolic pressure estimated to be 79 mmHg. Severe pulmonary hypertension. Stage 2 diastolic dysfunction. Ordering Physician: Gómez Pascal Referring Physician: AGGIE GODWIN Performed By: Antonia Romero RCS
--- NOTE | 2022-10-18 09:06 | CON.PCM.CA_ITS ---
Assessment & Plan Assessment/Plan (1) Non-ST elevation UT (NSTEMI): PLAN: The patient has abnormal cardiac enzymes compatible with a non-ST segment elevation UT. This may be related to an acute coronary syndrome with a type I event based upon the patient's history superimposed upon her cardiovascular risk factors and previous cardiovascular diagnosis. A component of elevated cardiac enzymes secondary to her chronic renal insufficiency/failure cannot necessarily be excluded. Based upon the patient's history, her risk factors, her previous diagnosis, and her objective findings with her cardiac enzymes and her electrocardiogram, there is concern of an acute coronary syndrome with a type I event warranting further evaluation and care. This would include further evaluation with a transthoracic echocardiogram to evaluate left ventricular wall motion and systolic function. It would also include further evaluation with a diagnostic cardiac catheterization to reassess her coronary anatomy for the need for additional revascularization therapy. In the interim she would continue medical management which would include aspirin, nitrates as needed, her beta-blockers (carvedilol/Coreg), afterload reducing agents (her ARB-losartan), and lipid-lowering agents with her statin (atorvastatin). She was also placed on anticoagulant therapy with IV heparin. This will be adjusted in and around the time of her cardiac catheterization procedure. (2) CAD (coronary artery disease): PLAN: The patient has a history of CAD. The details are unknown at this time. An attempt is being made to retrieve her previous [facility] medical records for continuity of care. In the interim she will continue evaluation and care as noted above. (3) S/P PTCA (percutaneous transluminal coronary angioplasty): PLAN: The patient has a history of PCI. The details are unknown at this time. Again, an attempt is being made to retrieve her previous [facility] medical records for continuity of care. As noted above, based upon her ongoing issues, she will continue noninvasive and invasive valuation. (4) Carotid disease, bilateral: PLAN: The patient has a history of carotid artery disease. She has undergone carotid artery percutaneous intervention and carotid artery endarterectomy. This does increase her risk for cardiovascular disease as well. She will continue medical management as deemed appropriate. (5) HLD (hyperlipidemia): PLAN: The patient has a history of hyperlipidemia. She will continue medical therapy with her statin therapy-atorvastatin. (6) HTN (hypertension): PLAN: The patient has a history of hypertension. Her blood pressure will need to be monitored and her medications adjusted accordingly. 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 Her cardiovascular evaluation will need to be coordinated with her dialysis therapy. (8) Anemia: PLAN: The patient has a history of anemia. It appears that this is thought to be related to her chronic renal insufficiency. This will also be taken into consideration with the need for additional evaluation and care from a cardiac standpoint both medically and otherwise. (9) Dementia: PLAN: The patient is reported to have a history of dementia. The patient does have a POA who assists her in making her decisions. 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 She states this was placed several years ago. Addt'l Comments As noted above, the patient's case was discussed and reviewed with the patient, her POA via telephone conversation, and Dr. Jung. Status post reviewing the patient's case with the POA, the POA agreed with furt her evaluation and care from a cardiovascular standpoint including diagnostic cardiac catheterization. Thank you for allowing me to participate in the care of your patient. Please don't hesitate to call if any issues arise. This note was generated using a voice recognition system and there may be incorrect words, spelling or punctuation that were not noted when reviewing the office note prior to saving. HPI Consult Data Date of Consult: 10/18/22 HPI Narrative HPI Narrative: PRASANNA VARGAS, is a 87 year old white female who presents for c ardiovascular auscultation based upon concerns of chest pain concerning for angina pectoris, abnormal cardiac enzymes concerning for non-ST segment elevation UT, superimposed upon a history of CAD, PCI, carotid artery disease status post percutaneous intervention and carotid artery endarterectomy, t hromboembolic disease status post IVC filter placement, hyperlipidemia, hypertension, hypothyroidism, end-stage renal disease on chronic hemodialysis, and chronic anemia-possibly related to her end-stage renal disease all superimposed upon a history of dementia. According to the patient and according to the patient's power of securities attorney (via telephone conversation in the patient's room) the patient has been having chest discomfort at her extended care facility which has been previously attributed to indigestion. According to the power of securities attorney she requested laboratory studies and ECGs to be performed as she states the patient has presented this way in the past with her cardiovascular di caydene. Based upon results of her studies-being considered abnormal-she was brought to the hospital for further evaluation. Since her hospitalization she has been noted to have abnormal high-sensitivity troponin I levels. She has had ECGs performed which demonstrated sinus rhythm, consideration for LVH, and ST and T wave changes potentially compatible with LVH repolarization although myocardial ischemia cannot be excluded. Her chest x-ray was reviewed. It did not appear to demonstrate any acute cardiopulmonary disease process. The radiology report comments on atelectasis. According to the patient and her POA she has undergone previous cardiovascular evaluation through the [facility] system. This included a diagnostic cardiac catheterization and a PCI. The results are unavailable for review at this time. The patient also states that she has a history of a cardiac murmur. She does not know the details of her cardiac murmur. The patient states that she has been an active person throughout her life. 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 [facility] Medical History (Updated 10/18/22 @ 09:[address] Gómez Pascal MD) Anemia Asthma Atherosclerotic heart disease Carotid disease, bilateral Dementia DVT (deep venous thrombosis) End stage renal disease Hypertension Hypothyroidism IBS (irritable bowel syndrome) TIA (transient ischemic attack) Home Medications aspirin 81 mg tablet,delayed release 81 mg PO DAILY clot prevention 10/18/22 [History Last Taken Unknown] calcium acetate(phosphat bind) 667 mg tablet 667 mg PO 3XD Binder 10/18/22 [History Last Taken Unknown] carvedilol 6.25 mg tablet 6.25 mg PO BID heart 10/18/22 [History Last Taken Unknown] donepezil 5 mg tablet 2.5 mg PO QHS dementia 10/18/22 [History Last Taken Unknown] hydralazine 50 mg tablet 50 mg PO 2XD hypertension 10/18/22 [History Last Taken Unknown] levothyroxine 100 mcg tablet 100 mcg PO SUSA thyroid 10/18/22 [History Last Taken Unknown] levothyroxine 200 mcg tablet 200 mcg PO MOTUWEFR hypothyroidism 10/18/22 [History Last Taken Unknown] Allergy/AdvReac Type Severity Reaction Status Date / Time codeine Allergy NEEDS Verified 10/17/22 16:08 FOLLOW-UP Family History (Updated 10/17/22 @ 23:[address] Estrellita Mcdowell MD) Mother Diabetes Father Diabetes Surgical History (Updated 10/18/22 @ 09:[address] Gómez Pascal MD) H/O coronary angioplasty History of back surgery History of total left knee replacement S/p bilateral carotid endarterectomy Social History (Updated 10/17/22 @ 23:[address] Estrellita Mcdowell MD) household members: none housing: custodial Smoking Status: Never smoker alcohol intake: never substance use type: does not use ROS Constitutional Constitutional: Reports as per HPI Eyes Eyes: Reports as per HPI ENT HEENT: Reports as per HPI Cardiovascular Cardiovascular: Reports chest pain at rest Respiratory/Chest Respiratory/Chest: Reports cough Gastrointestinal Gastrointestinal: Reports as per HPI Genitourinary Genitourinary: Reports as per HPI Musculoskeletal Musculoskeletal: Reports as per HPI Integumentary Integumentary: Reports as per HPI Neurologic Neurologic: Reports other Details: Dementia Physical Exam Narrative This is a pleasant 87-year-old white female who appears to be resting comfortably at the moment in no acute distress. Const alert and no apparent distress Orientation / Consciousness: awake HEENT normocephalic, head/scalp atraumatic and hearing grossly normal bilaterally Eyes PERRL, EOMs intact bilaterally, conjunctivae normal and no scleral icterus Neck full ROM, supple and no JVD Carotids: normal carotid upstroke Resp normal respiratory effort and clear to auscultation bilaterally Cardio regular rate, regular rhythm, S1 normal heart sound and S2 normal heart sound Heart Sounds: murmur systolic III/ soft mid left sternal border and LVOT Bruits: other Other Details: Left arm: AV fistula: Positive bruit GI normal to inspection, nondistended, normoactive bowel sounds Extremity no pedal edema Skin no rashes or lesions noted Psych Psych Narrative: Dementia Risk Stratification Risk Stratification Applicable: Yes Age >/= 65: Yes >/= 3 CAD Risk Factors (HTN, HLD, DM, family hx of CAD, or current smoker): Yes Aspirin Use in the Past 7 Days: Yes Severe Angina (>/= episodes in 24 hours): Yes EKG ST Changes >/= 0.5mm: Yes Positive Cardiac Marker: Yes GAYATRI Risk Stratification Score: 6 GAYATRI % Risk: 41% Risk Procedure Criteria Type of Procedure Procedure Type: Elective Elective Risks - COVID COVID Risk Discussion: The surgeon/proceduralist and patient have discussed in detail the risk of exposure to and/or potential harm posed by the COVID-19 virus with having a surgery/procedure at this time versus the risk of delaying the surgery/procedure. It is not possible to know either the risk of delaying the surgery or procedure or chance of getting an infection with perfect accuracy, but a joint decision was made between the patient and the surgeon/proceduralist to proceed at this time with the scheduled surgery/procedure as indicated on the consent form. Objective Data Vital Signs: Vital Signs Temp Pulse Resp BP Pulse Ox O2 Del Method 97.9 F 57 L 16 158/45 H 94 Room Air 10/18/22 04:46 10/18/22 07:00 10/18/22 04:46 10/18/22 04:46 10/18/22 04:46 10/18/22 08:17 Oxygen Delivery Method Room Air Weight: 127 lb 6.835 oz Body Mass Index (BMI) 26.6 Intake & Output: Intake and Output for Last 24 Hours 10/16/22 10/17/22 10/18/22 23:59 23:59 23:59 Intake Total 39.9 / 39.9 Balance 39.9 / 39.9 Lab / Micro Data Result Diagrams: 10/18/22 05:55 10/18/22 05:55 Labs: Laboratory Results - last 24 hr 10/17/22 16:18: WBC 4.9, RBC 2.74 L, Hgb 9.9 L, Hct 30.3 L, MCV 110.6 H, MCH 36.1 H, MCHC 32.7, RDW Std Deviation 61.4 H, RDW Coeff of Sotero 16.1 H, Plt Count 187, MPV 11.2, Immature Gran % (Auto) 1.000 H, Neut % (Auto) 57.7, Lymph % (Auto) 24.0, [place] % (Auto) 11.4 H, Eos % (Auto) 4.9, Baso % (Auto) 1.0, Absolute Neuts (auto) 2.8, Absolute Lymphs (auto) 1.18, Nucleated RBC % 0 10/17/22 16:18: Sodium 135 L, Potassium 3.9, Chloride 96 L, Carbon Dioxide 31.0, Anion Gap 8, BUN 43 H, Creatinine 5.40 H, Estim Creat Clear Calc 6.96, Est GFR (MDRD) Af Amer 10 L, Est GFR (MDRD) Non-Af 8 L, BUN/Creatinine Ratio 8.0 L, Glucose 128 H, Calcium 9.2, Troponin I High Sens 554 H* 10/17/22 16:18: Phosphorus 2.5, Magnesium 2.2 10/17/22 22:08: Troponin I High Sens 473 H* 10/17/22 23:45: Troponin I High Sens 492 H* 10/17/22 23:45: PT 15.1 H, INR 1.2, APTT 38.6 H 10/18/22 05:55: WBC 3.8 L, RBC 2.31 L, Hgb 8.5 L, Hct 25.7 L, MCV 111.3 H, MCH 36.8 H, MCHC 33.1, RDW Std Deviation 63.1 H, RDW Coeff of Sotero 16.4 H, Plt Count 147 L, MPV 11.0, Immature Gran % (Auto) 0.000, Neut % (Auto) 56.0, Lymph % (Auto) 23.6, [place] % (Auto) 11.1 H, Eos % (Auto) 8.5 H, Baso % (Auto) 0.8, Absolute Neuts (auto) 2.1, Absolute Lymphs (auto) 0.89, Nucleated RBC % 0 10/18/22 05:55: Sodium 138, Potassium 3.7, Chloride 101, Carbon Dioxide 30.0, Anion Gap 7, BUN 53 H, Creatinine 6.20 H, Estim Creat Clear Calc 5.83, Est GFR (MDRD) Af Amer 8 L, Est GFR (MDRD) Non-Af 7 L, BUN/Creatinine Ratio 8.5 L, Gluco se 100, Calcium 8.3 L, Total Bilirubin 0.50, AST 22, ALT 27, Alkaline Phospha tase 68, Total Protein 5.4 L, Albumin 2.7 L, Globulin 2.7, Albumin/Globulin Ratio 1.0, Triglycerides 43, Cholesterol 122, LDL Cholesterol 65, VLDL Cholest ronak 9, HDL Cholesterol 48 10/18/22 05:55: Troponin I High Sens 412 H* 10/18/22 05:55: APTT 87.1 H Cardiology Labs/Tests 10/17/22 16:18: WBC 4.9, RBC 2.74 L, Hgb 9.9 L, Hct 30.3 L, MCV 110.6 H, MCH 36.1 H, MCHC 32.7, Plt Count 187, MPV 11.2, Immature Gran % (Auto) 1.000 H, Neut % (Auto) 57.7, Lymph % (Auto) 24.0, [place] % (Auto) 11.4 H, Eos % (Auto) 4.9, Baso % (Auto) 1.0, Absolute Neuts (auto) 2.8, Nucleated RBC % 0 10/17/22 16:18: Sodium 135 L, Potassium 3.9, Chloride 96 L, Carbon Dioxide 31.0, Anion Gap 8, BUN 43 H, Creatinine 5.40 H, Est GFR (MDRD) Af Amer 10 L, Est GFR (MDRD) Non-Af 8 L, BUN/Creatinine Ratio 8.0 L, Glucose 128 H, Calcium 9.2 10/17/22 16:18: Phosphorus 2.5, Magnesium 2.2 10/17/22 23:45: PT 15.1 H, INR 1.2, APTT 38.6 H 10/18/22 05:55: WBC 3.8 L, RBC 2.31 L, Hgb 8.5 L, Hct 25.7 L, MCV 111.3 H, MCH 36.8 H, MCHC 33.1, Plt Count 147 L, MPV 11.0, Immature Gran % (Auto) 0.000, Neut % (Auto) 56.0, Lymph % (Auto) 23.6, [place] % (Auto) 11.1 H, Eos % (Auto) 8.5 H, Baso % (Auto) 0.8, Absolute Neuts (auto) 2.1, Nucleated RBC % 0 10/18/22 05:55: Sodium 138, Potassium 3.7, Chloride 101, Carbon Dioxide 30.0, Anion Gap 7, BUN 53 H, Creatinine 6.20 H, Est GFR (MDRD) Af Amer 8 L, Est GFR (MDRD) Non-Af 7 L, BUN/Creatinine Ratio 8.5 L, Glucose 100, Calcium 8.3 L, Total Bilirubin 0.50, Triglycerides 43, Cholesterol 122, LDL Cholesterol 65, VLDL Cholesterol 9, HDL Cholesterol 48 10/18/22 05:55: APTT 87.1 H Rhythm: Sinus rhythm EKG: As noted above ECHO: Pending Radiography Diagnostic Testing: Radiology Impression Chest X-Ray 10/17/22 16:40 IMPRESSION: Left lung base atelectasis. Electronically Signed: Gómez Auguste MD at 16:50 EST ,
--- NOTE | 2022-10-18 09:31 | CASEMGMT ---
Tertiary facilities in-network with patient's insurance: [facility], [facility], , [facility], [facility], and [facility]
[2022-10-18] MEDS: hydrALAZINE 50 MG Tablet PO ×2 (09:56→21:10)
[2022-10-18] MEDS: Carvedilol 6.25 MG Tablet PO ×2 (09:57→21:10)
[2022-10-18] MEDS: Aspirin E.C. 81 MG Tablet PO (09:57)
[2022-10-18] MEDS: 0.9% Normal Saline 1,000 ML 15 ML IV (10:07)
[2022-10-18] MEDS: amLODIPine 5 MG Tablet PO (10:10)
--- NOTE | 2022-10-18 10:22 | NURSING ---
Called [facility], obtained phone consent with second RN Trace Rodriguez to Heart Catheterization today with Dr. Pascal. When asked if patient could receive blood products if needed, Anusha stated Only if the blood is vaccine free so this RN marked no for blood products. Xiomy, ferryboat pilot made aware of documentation for consent of procedure and blood products.
[2022-10-18] MEDS: 0.9% Normal Saline 1,000 ML 75 ML IV (12:55)
--- NOTE | 2022-10-18 13:02 | CL.D_ITS ---
Patient Name: PRASANNA VARGAS Study Date: 10/18/2022 Performing: Gómez Pascal MD Ht: 58 inches 147.32 cm : 1935 Wt: 127.6 lbs 57.8 kg Age: 87 Gender: female BSA: 1.5 PROCEDURE(S) PERFORMED [id number]-(51027)LHC/COR CLINICAL PROFILE AND INDICATIONS Indications: Worsening Angina, ACS <= 24 hrs, Suspected CAD Heart Failure: None Stress/Imaging Stress/Image Study Performed: No Angina Classification Anginal Classification w/in 2 Weeks: CCS IV CAD Presentations: Non-STEMI. CONCLUSIONS [place] Multivessel CAD RECOMMENDATIONS Risk factor modification Medical therapy Case discussed / reviewed with Dr. Ramachandran of Interventional Cardiology: options are tertiary care center evaluation for CABG vs. high risk PCI of the LM/LAD and RCA. Case discussed / reviewed with the patient and her POA. S/P discussion of the case, the POA elected to proceed with conservative medical management and no further cardiac evaluation / procedures at a tertiary care center. Cased discussed / reviewed with Dr. Jung of the [facility] hospitalist staff. DESCRIPTION OF PROCEDURE The patient arrived to the procedure lab. The risks and benefits of the procedure as well as a full description of our services here and current unavailability of surgical backup were fully explained to the patient and/or their significant other prior to the catheterization. The Timeout was completed, verifying the correct patient and procedure. The patient's procedural site was prepped and draped in the usual fashion. Local anesthetic was given subcutaneously to right groin region with Lidocaine 2%. Using a modified Seldinger technique, arterial access was obtained via the right femoral artery, a 4Fr sheath was inserted Left Coronary Artery selective angiography was performed in multiple views using a 4 Fr. JL4 catheter. Right Coronary Artery selective angiography was then performed in multiple views using a 4 Fr. 3DRC catheter.The arterial sheath was pulled and manual compression applied until hemostasis is achieved. CORONARY ANGIOGRAPHY DOMINANCE: Right Dominant LEFT HEART ASSESSMENT Left Ventricular Ejection Fraction: Not assessed LEFT MAIN: LM: ostial area: calcified, Catheter engagement: decreased arterial wave form / pressure damping, ostial/proximal: taperin % Stenosis LEFT ANTERIOR DESCENDING ARTERY: MID LAD: Previously placed stent has an instent irregular: 85 % restenosis CIRCUMFLEX ARTERY: Mild luminal irregularities RIGHT CORONARY ARTERY: OSTIAL RCA: ostial area: calcified, Catheter engagement: decreased arterial wave form / pressure damping, 50 % Stenosis PROX RCA: Mild luminal irregularities MID RCA: ectatic / aneurysmal appearing with irrgegular / ulcerated plaque appearing 75 % stenosis, diffuse: 75 % Stenosis COMPLICATIONS No Complications PROCEDURE MEDICATIONS Fentanyl 50 mcg IV Versed 1 mg IV Oxygen: 2 L/min via nasal cannula Oxygen: 5 L/min via nasal cannula SUMMARY OF HEMODYNAMIC DATA Time AIR REST ECG 11:22:59 AO 172/41 (85) SA 11:56:32 AIR REST 13:00:51 Signed By Gómez Pascal MD On 10/22/2022 11:36:39 Signed By Gómez Pascal MD On 10/18/2022 13:01:24 Gómez Pascal MD
[2022-10-18] MEDS: Isosorbide Mononitrate 30 MG Tablet PO (13:44)
--- NOTE | 2022-10-18 13:57 | CASEMGMT ---
Social Work Pt is a nursing home resident at [facility]. SW met with pt and introduced self and role of SW. Pt confirms that [facility] is her home and she plans to return there upon discharge. Pt friend Anusha Madden was in the room and agreeable to discharge plan. Clinicals faxed to [facility] and updated on discharge plan. Plan: [facility], when medically ready NIK Engel
--- NOTE | 2022-10-18 15:39 | CHAPLAIN ---
Type of Pastoral Visit _x__ Initial Visit ___ Follow-up Visit ___ On-call Visit ___ General Patient Visit ___ Spiritual Assessment ___ Family Conference ___ Bereavement ___ Rapid Response ___ Code Blue ___ Other (describe below) Pastoral Care Referral From _x__ Patient ___ Family ___ Nurse ___ Physician ___ Nanotechnology Engineering Technologist ___ Bar Catcher ___ Other (describe below) Sacrament/Intervention _x__ Active listening ___ Anointing ___ Taoism ___ Bereavement ___ Communion ___ Mary exploration ___ _x__ Life review _x__ Prayer ___ Reconciliation ___ Sacrament of Sick ___ Supportive presence ___ Wedding ___ Other (describe below) Pastoral Comments 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
--- NOTE | 2022-10-18 18:40 | PCM.PN.HOSP ---
Subjective Subjective Patient was seen and examined today, she was alert but showed signs of confusion. Her POA was contacted and gave permission for the patient undergo a cardiac cath, this was performed today and showed severe triple-vessel disease, the POA was contacted about this and elected to treat the patient medically rather than transfer her to another facility. I had lengthy discussions with cardiology about her care today. Objective Data Objective Data Vital Signs: Vital Signs Temp Pulse Resp BP Pulse Ox O2 Del Method 97.9 F 47 L 19 H 112/39 L 97 Room Air 10/18/22 16:45 10/18/22 17:45 10/18/22 17:45 10/18/22 17:45 10/18/22 17:45 10/18/22 17:45 Oxygen Delivery Method Room Air Weight: 57.8 kg Body Mass Index (BMI) 26.6 Intake & Output: Intake and Output for Last 24 Hours 10/16/22 10/17/22 10/18/22 23:59 23:59 23:59 Intake Total 450.5 / 450.5 Balance 450.5 / 450.5 Lab / Micro Data Result Diagrams: 10/18/22 05:55 10/18/22 05:55 Labs: Laboratory Results - last 24 hr 10/17/22 16:18: Phosphorus 2.5, Magnesium 2.2 10/17/22 22:08: Troponin I High Sens 473 H* 10/17/22 23:45: Troponin I High Sens 492 H* 10/17/22 23:45: PT 15.1 H, INR 1.2, APTT 38.6 H 10/18/22 05:55: WBC 3.8 L, RBC 2.31 L, Hgb 8.5 L, Hct 25.7 L, MCV 111.3 H, MCH 36.8 H, MCHC 33.1, RDW Std Deviation 63.1 H, RDW Coeff of Sotero 16.4 H, Plt Count 147 L, MPV 11.0, Immature Gran % (Auto) 0.000, Neut % (Auto) 56.0, Lymph % (Auto) 23.6, [place] % (Auto) 11.1 H, Eos % (Auto) 8.5 H, Baso % (Auto) 0.8, Absolute Neuts (auto) 2.1, Absolute Lymphs (auto) 0.89, Nucleated RBC % 0 10/18/22 05:55: Sodium 138, Potassium 3.7, Chloride 101, Carbon Dioxide 30.0, Anion Gap 7, BUN 53 H, Creatinine 6.20 H, Estim Creat Clear Calc 5.83, Est GFR (MDRD) Af Amer 8 L, Est GFR (MDRD) Non-Af 7 L, BUN/Creatinine Ratio 8.5 L, Glucose 100, Calcium 8.3 L, Total Bilirubin 0.50, AST 22, ALT 27, Alkaline Phosphatase 68, Total Protein 5.4 L, Albumin 2.7 L, Globulin 2.7, Albumin/Globulin Ratio 1.0, Triglycerides 43, Cholesterol 122, LDL Cholesterol 65, VLDL Cholesterol 9, HDL Cholesterol 48 10/18/22 05:55: Troponin I High Sens 412 H* 10/18/22 05:55: APTT 87.1 H Radiography Diagnostic Testing: Radiology Impression Echocardiogram 10/18/22 08:57 Interpretation Summary Left ventricular systolic function is normal. The estimated ejection fraction is 55 %. Mild concentric left ventricular hypertrophy. The left atrium is moderately enlarged. There is moderate to severe mitral annular calcification. Extension of the mitral annular calcification onto the base of the posterior mitral valve leaflet. Moderate (2+) eccentric mitral valve insufficiency. Mild to moderate (1-2+) eccentric tricuspid valve insufficiency. Mild diffuse aortic valve thickening. Mild focal aortic valve calcification. Trivial pulmonic valve insufficiency. Calcified aortic root. Right ventricular systolic pressure estimated to be 79 mmHg. Severe pulmonary hypertension. Stage 2 diastolic dysfunction. Ordering Physician: Gómez Pascal Referring Physician: AGGIE GODWIN Performed By: Antonia Romero RCS Physical Exam Const alert, no apparent distress and healthy appearing Constitutional Narrative: Patient is alert but confused, she answers simple questions appropriately at times. General Appearance: cooperative, well kempt and well developed Orientation / Consciousness: awake, oriented to person, oriented to place and oriented to time HEENT normocephalic, head/scalp atraumatic, moist oral mucous membranes and oropharynx normal Eyes PERRL, EOMs intact bilaterally and conjunctivae normal Neck supple, no JVD, thyroid normal and no carotid bruits General: trachea midline Resp normal respiratory effort, no retractions, no use of accessory muscles and clear to auscultation bilaterally Auscultation: Negative for rales, rhonchi or wheezes Cardio regular rate, regular rhythm, S1 normal heart sound, S2 normal heart sound, no rub and no gallops Cardio Narrative: Is a 2/6 systolic murmur noted at the apex and left sternal border GI normal to inspection, nondistended, normoactive bowel sounds, soft to palpation, non-tender and non-distended Extremity no clubbing, cyanosis or edema Skin no rashes or lesions noted General Skin Exam: no breakdown Neuro CN's II-XII intact bilaterally, no focal motor deficits and no sensory deficits noted Neuro Narrative: Patient is alert but confused Sensorium / Orientation: awake and alert Speech: speech normal Psych Psych Narrative: Patient is alert but confused, she does not appear agitated or depressed Assessment & Plan Assessment/Plan (1) Non-ST elevation [place] (NSTEMI): PLAN: Plan 1. [id number]'s cardiac medications will be adjusted by cardiology #2 triple-vessel coronary artery disease-patient's POA is elected to treat this medically, cardiology will be adjusting the patient's medications #3 essential hypertension-patient will remain on present medications #4 end-stage renal disease requiring dialysis-patient is being seen by nephrology #5 dementia-complicates care, management, recovery, and prognosis #6 anemia of chronic kidney disease-patient's hemoglobin today was 8.5, CBC will be rechecked tomorrow Charges/Coding Visit Charges Inpatient E&M: 78024 Subs Hosp L2
--- NOTE | 2022-10-18 19:09 | DIALYSIS ---
Hemodialysis tx completed x 3 hours without complications. Pt tolerated tx well, fluid removed 1,000ml using crit-line monitor. Fluid removal limited as BP dropped during tx while UF goal was higher. Vitals stable post tx. Verbal report given to SD Payne post tx
[2022-10-18] MEDS: Donepezil HCl 5 MG Tablet PO (21:10)
[2022-10-18] MEDS: Atorvastatin Calcium 20 MG Tablet PO (21:10)
[2022-10-19] VITALS (8 sets, daily range): BP systolic 141–214; BP diastolic 40–58; PULSE 52–65; RESP 18–19; TEMP 36.8–36.9; O2SAT 97–98
--- NOTE | 2022-10-19 00:01 | PCM.PN.REN ---
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 [employer] today thanks, please call [phone] with any concerns Objective Data Objective Data Vital Signs: Vital Signs Temp Pulse Resp BP Pulse Ox O2 Del Method 98.5 F 64 16 144/51 H 99 Room Air 10/18/22 21:07 10/18/22 21:10 10/18/22 21:07 10/18/22 21:10 10/18/22 21:07 10/18/22 21:07 Oxygen Delivery Method Room Air Weight: 57.8 kg Body Mass Index (BMI) 26.6 Intake & Output: Intake and Output for Last 24 Hours 10/17/22 10/18/22 10/19/22 23:59 23:59 23:59 Intake Total 450.5 / 450.5 Balance 450.5 / 450.5 Lab / Micro Data Result Diagrams: 10/18/22 05:55 10/18/22 05:55 Labs: Laboratory Results - last 24 hr 10/17/22 23:45: Troponin I High Sens 492 H* 10/17/22 23:45: PT 15.1 H, INR 1.2, APTT 38.6 H 10/18/22 05:55: WBC 3.8 L, RBC 2.31 L, Hgb 8.5 L, Hct 25.7 L, MCV 111.3 H, MCH 36.8 H, MCHC 33.1, RDW Std Deviation 63.1 H, RDW Coeff of Sotero 16.4 H, Plt Count 147 L, MPV 11.0, Immature Gran % (Auto) 0.000, Neut % (Auto) 56.0, Lymph % (Auto) 23.6, [place] % (Auto) 11.1 H, Eos % (Auto) 8.5 H, Baso % (Auto) 0.8, Absolute Neuts (auto) 2.1, Absolute Lymphs (auto) 0.89, Nucleated RBC % 0 10/18/22 05:55: Sodium 138, Potassium 3.7, Chloride 101, Carbon Dioxide 30.0, Anion Gap 7, BUN 53 H, Creatinine 6.20 H, Estim Creat Clear Calc 5.83, Est GFR (MDRD) Af Amer 8 L, Est GFR (MDRD) Non-Af 7 L, BUN/Creatinine Ratio 8.5 L, Glucose 100, Calcium 8.3 L, Total Bilirubin 0.50, AST 22, ALT 27, Alkaline Phosphatase 68, Total Protein 5.4 L, Albumin 2.7 L, Globulin 2.7, Albumin/Globulin Ratio 1.0, Triglycerides 43, Cholesterol 122, LDL Cholesterol 65, VLDL Cholesterol 9, HDL Cholesterol 48 10/18/22 05:55: Troponin I High Sens 412 H* 10/18/22 05:55: APTT 87.1 H Radiography Diagnostic Testing: Radiology Impression Echocardiogram 10/18/22 08:57 Interpretation Summary Left ventricular systolic function is normal. The estimated ejection fraction is 55 %. Mild concentric left ventricular hypertrophy. The left atrium is moderately enlarged. There is moderate to severe mitral annular calcification. Extension of the mitral annular calcification onto the base of the posterior mitral valve leaflet. Moderate (2+) eccentric mitral valve insufficiency. Mild to moderate (1-2+) eccentric tricuspid valve insufficiency. Mild diffuse aortic valve thickening. Mild focal aortic valve calcification. Trivial pulmonic valve insufficiency. Calcified aortic root. Right ventricular systolic pressure estimated to be 79 mmHg. Severe pulmonary hypertension. Stage 2 diastolic dysfunction. Ordering Physician: Gómez Pascal Referring Physician: AGGIE GODWIN Performed By: Antonia Romero RCS
[2022-10-19] MEDS: hydrALAZINE 20 MG/ML Vial 10 MG IV (03:27)
--- NOTE | 2022-10-19 05:55 | EKG12_ITS ---
Test Reason : CP ADMIT Blood Pressure : / mmHG Vent. Rate : 062 BPM Atrial Rate : 062 BPM P-R Int : 166 ms QRS Dur : 100 ms QT Int : 442 ms P-R-T Axes : 112 154 -66 degrees QTc Int : 448 ms Suspect arm lead reversal, interpretation assumes no reversal Normal sinus rhythm Right axis deviation ST & T wave abnormality, consider anterolateral ischemia Abnormal ECG Recommend Repeat ECG Confirmed by MENDEZ OCHOA, AG ([id number]), managing editor AMILCAR WELLINGTON ([id number]) on 10/24/2022 10:12:13 AM Referred By: Confirmed By:AG SIMMS MD
[2022-10-19 07:34] LABS: Absolute Lymphocyte Count 0.65 X10^3/uL (0.83-4.51); Basophil# 0.03 X10^3/uL; Basophil% 0.7 % (0-1); Eosinophil# 0.17 X10^3/uL; Hematocrit 25.9 % (37-47); Hemoglobin 8.6 g/dL (12.0-15.0); Lymphocyte # 0.65 X10^3/ul (0.83-4.51); Lymphocyte % 15.2 % (19-41); Mean Corp Hgb Conc 33.2 g/dL (32-36); Mean Corpuscular Hgb 36.6 pg (27.0-32.0); Mean Corpuscular Volume 110.2 fL (81-99); Mean Platelet Vol. 11.6 fl (6.2-12.0); Monocyte# 0.39 X10^3/uL; Monocyte% 9.1 % (0-10); NRBC Flagged by Analyzer 0 % (0-5); Neutrophil # 3.04 X10^3/uL (2.7-7.7); Neutrophil % 70.8 % (47-70); POSITIVE COUNT YES; Platelet Count 123 K/mm3 (150-450); RBC Distribution Width CV 16.9 % (11.6-14.6); RBC Distribution Width SD 62.5 fl (35.1-43.9); Red Blood Count 2.35 M/mm3 (4.2-5.4); White Blood Count 4.3 K/mm3 (4.4-11.0)
[2022-10-19 07:41] LABS: International Normalized Ratio 1.3; Partial Thromboplast Time 30.5 Seconds (24.1-36.2); Prothrombin Time (Protime)PT. 15.4 SECONDS (11.7-14.9)
[2022-10-19 08:01] LABS: Anion Gap 7 (5-15); BUN 30 mg/dL (7-18); BUN/Creat Ratio 7.5 RATIO (10-20); Calcium,Total 8.3 mg/dL (8.5-10.1); Chloride 100 mmol/L (98-107); Creatinine, Serum 3.98 mg/dL (0.55-1.02); EST Glomerular Filtration Rate 11 mL/min (>60); Est Glom Filt Rate - Afr Amer 14 mL/min (>60); Estimated Creatinine Clearance 9.09 ml/min; Glucose 103 mg/dL (74-106); Potassium 4.4 mmol/L (3.5-5.1); Sodium Level 135 mmol/L (136-145)
[2022-10-19] MEDS: hydrALAZINE 50 MG Tablet PO (08:37)
[2022-10-19] MEDS: Aspirin E.C. 81 MG Tablet PO (08:37)
[2022-10-19] MEDS: Doxazosin 1 MG Tablet 2 MG PO (08:37)
[2022-10-19] MEDS: Clopidogrel Bisulfate 75 MG Tablet PO (08:37)
[2022-10-19] MEDS: Carvedilol 6.25 MG Tablet PO (08:37)
[2022-10-19] MEDS: Isosorbide Mononitrate 30 MG Tablet PO ×2 (08:37→10:38)
[2022-10-19] MEDS: Losartan Potassium 100 MG Tablet PO (08:37)
--- NOTE | 2022-10-19 10:21 | TREXTCAR_ITS ---
Diet Diet Order/Speech Therapy: 10/18/22 13:34 Diet: Renal - General Is pt able to select menu?: No Routine Orders/Code Status Code Status: Full Code Wound(s) Right Femoral: Wound Type: Puncture Therapies Weight Bearing: Full weight bearing Problem/Diagnosis (1) Non-ST elevation [place] (NSTEMI): Status: Acute Code(s): I21.4 - Non-ST elevation (NSTEMI) myocardial infarction Comment: Patient's POA did not want interventional treatment Plan 1. [id number]-iuelena's cardiac medications will be adjusted by cardiology #2 triple-vessel coronary artery disease-patient's POA is elected to treat this medically, cardiology will be adjusting the patient's medications #3 essential hypertension-patient's blood pressure is not under optimal control, meds were adjusted at the time of discharge from the hospital #4 end-stage renal disease requiring dialysis-patient is being seen by nephrology #5 dementia-complicates care, management, recovery, and prognosis #6 anemia of chronic kidney disease-patient's hemoglobin today was 8.6 #7 severe pulmonary hypertension-due to age and comorbidities patient is a poor candidate for medical intervention Allergies/Procedures Done in Hospital Allergies codeine Allergy (Verified 10/17/22 16:08) NEEDS FOLLOW-UP Procedures: 2-D Echocardiogram (Normal ejection fraction with severe pulmonary hypertension) and Cardiac catheterization (Triple-vessel coronary artery disease-severe) Type of Care/Length of Stay Estimated LOS: More Than 30 Days Type of Care Needed: Intermediate Rehab Potential: Good Prognosis: Good Additional Orders/Day of Discharge H&P will serve as current which was dated: 10/17/22 Day of Discharge: 10/19/22 Dietary and Speech Recommendations Dietitian Recommendations/Changes: ADAT to Renal - General to manage medical conditions. Discharge Plan Admission Admit Date/Time: 10/17/22 21:13 Attending Provider: Dallas Jung Primary Care Provider: aCt Holman Consulting Providers: Gómez Pascal ; Elizabeth Reaves ; Estrellita Mcdowell Discharge Orders/Prescriptions Prescriptions: New atorvastatin 20 mg Tablet 20 mg PO QHS Qty: 0 0RF isosorbide mononitrate 30 mg Tablet Extended Release 24 Hr 60 mg PO DAILY Qty: 0 0RF clopidogrel 75 mg Tablet 75 mg PO DAILY Qty: 0 0RF amlodipine 10 mg Tablet 10 mg PO DAILY Qty: 0 0RF nitroglycerin 0.4 mg Tablet, Sublingual 0.4 mg sublingual Q5M PRN (Reason: CHEST PAIN) Qty: 0 0RF Continued donepezil 5 mg tablet 2.5 mg PO QHS carvedilol 6.25 mg tablet 6.25 mg PO BID calcium acetate(phosphat bind) 667 mg tablet 667 mg PO 3XD aspirin 81 mg tablet,delayed release (DR/EC) 81 mg PO DAILY Label Comments: TAKE 1 TABLET BY MOUTH EVERY DAY levothyroxine 100 mcg tablet 100 mcg PO SUSA levothyroxine 200 mcg tablet 200 mcg PO MOTUWEFR hydralazine 50 mg tablet 50 mg PO 2XD Referrals / Follow Up: Cat Holman MD [Primary Care Provider] - Disposition Disposition (needs filled in before D/C Order can be placed): Long-Term F acility
--- NOTE | 2022-10-19 10:34 | DS.PCM_ITS ---
Providers Date of Admission: 10/17/22 Date of Discharge: 10/19/22 Primary Care Physician: Dr. Aggie Holman MD Consultations 10/17/22 21:29 Consult: Cardiology Routine Consulting Provider: Gómez Pascal Reason for Consult: NSTEMI EMERGENT Consult: No Notified: Yes Date Notified: 10/18/22 Time Notified: 06:30 Method of Notification: Text Consult: Nephrology Routine Consulting Provider: Elizabeth Reaves Reason for Consult: ESRD on HD [facility] EMERGENT Consult: No Notified: Yes Date Notified: 10/18/22 Time Notified: 06:55 Method of Notification: Answering Service Reason For Visit: NSTEMI Diagnosis Discharge Diagnosis (1) Non-ST elevation [place] (NSTEMI): Status: Acute Code(s): I21.4 - Non-ST elevation (NSTEMI) myocardial infarction Plan 1. [id number]'s cardiac medications will be adjusted by cardiology #2 triple-vessel coronary artery disease-patient's POA is elected to treat this medically, cardiology will be adjusting the patient's medications #3 essential hypertension-patient's blood pressure is not under optimal control, meds were adjusted at the time of discharge from the hospital #4 end-stage renal disease requiring dialysis-patient is being seen by nephrology #5 dementia-complicates care, management, recovery, and prognosis #6 anemia of chronic kidney disease-patient's hemoglobin today was 8.6 #7 severe pulmonary hypertension-due to age and comorbidities patient is a poor candidate for medical intervention Medications at Discharge Home Medications aspirin 81 mg tablet,delayed release 81 mg PO DAILY clot prevention 10/18/22 calcium acetate(phosphat bind) 667 mg tablet 667 mg PO 3XD Binder 10/18/22 carvedilol 6.25 mg tablet 6.25 mg PO BID heart 10/18/22 donepezil 5 mg tablet 2.5 mg PO QHS dementia 10/18/22 hydralazine 50 mg tablet 50 mg PO 2XD hypertension 10/18/22 levothyroxine 100 mcg tablet 100 mcg PO SUSA thyroid 10/18/22 levothyroxine 200 mcg tablet 200 mcg PO MOTUWEFR hypothyroidism 10/18/22 amlodipine 10 mg tablet 10 mg PO DAILY #0 tabs 12/31/22 atorvastatin 20 mg tablet 20 mg PO QHS #0 tabs 10/19/22 clopidogrel 75 mg tablet 75 mg PO DAILY #0 tabs 10/19/22 isosorbide mononitrate 30 mg tablet,extended release 24 hr 60 mg PO DAILY #0 tabs 10/19/22 nitroglycerin 0.4 mg sublingual tablet 0.4 mg sublingual Q5M PRN CHEST PAIN #0 tabs 10/19/22 Hospital Course Operations None Procedures Cardiac catheterization and Dialysis Summary of Care Provided Minutes Spent on Discharge: Hospital Course: This 87-year-old white female was seen in the emergency room at [facility], she is a resident of a correction facility, a troponin was ordered due to chest pain that she had at the facility and it was elevated she was sent in for evaluation to the emergency room. Labs obtained in the emergency room showed a CBC that was remarkable for hemoglobin of 9.9, patient's creatinine was 5.40, BUN was 43, troponin was elevated at 554. Chest x-ray showed left lung base atelectasis. Patient was admitted to PCU, she was a chronic dialysis patient and was seen by nephrology. Cardiac enzymes remained elevated and the patient underwent a cardiac catheterization which showed severe triple-vessel disease, due to the fact the patient had dementia, her POA was contacted about intensity of treatment and it was agreed that the patient would be treated medically rather than the patient being transferred to another facility for interventional care. On 10/19/2022, patient was seen and examined: On examination she appeared in good health and spirits, she does not appear to be in any distress. Vital signs as documented. Skin warm and dry and without overt rashes. Neck without JVD, thyroid appears normal, trachea is midline, neck is supple. Lungs clear, normal air movement was noted. Heart exam notable for regular rhythm, normal sounds and absence of murmurs, rubs or gallops. Abdomen unremarkable and without evidence of organomegaly, masses, or abdominal aortic enlargement, bowel sounds are present in all 4 quadrants, no abdominal tenderness was noted. Extremities nonedematous, no cyanosis was noted, no clubbing was noted. Neuro: Cranial nerves II through XII are grossly intact, no focal motor deficits were noted, sensation to light touch and pinprick is intact, motor exam 5/5 throughout. Psych: Patient is alert and oriented x3, she does not appear anxious or depressed, she does not appear agitated. On 10/19/2022, patient was seen and examined and felt to be stable for discharge back to her correction facility. Weight / BMI Weight Weight: 57.8 kg Body Mass Index (BMI) 26.6 ABG / Lab / Microbiology Data Result Diagrams: 10/19/22 05:54 10/19/22 05:54 Laboratory: Laboratory Results - last 24 hr 10/19/22 05:54: WBC 4.3 L, RBC 2.35 L, Hgb 8.6 L, Hct 25.9 L, MCV 110.2 H, MCH 36.6 H, MCHC 33.2, RDW Std Deviation 62.5 H, RDW Coeff of Sotero 16.9 H, Plt Count 123 L, MPV 11.6, Immature Gran % (Auto) 0.200, Neut % (Auto) 70.8 H, Lymph % (Auto) 15.2 L, [place] % (Auto) 9.1, Eos % (Auto) 4.0, Baso % (Auto) 0.7, Absolute Neuts (auto) 3.0, Absolute Lymphs (auto) 0.65 L, Nucleated RBC % 0 10/19/22 05:54: PT 15.4 H, INR 1.3, APTT 30.5 10/19/22 05:54: Sodium 135 L, Potassium 4.4, Chloride 100, Carbon Dioxide 28.0, Anion Gap 7, BUN 30 H, Creatinine 3.98 H, Estim Creat Clear Calc 9.09, Est GFR ( MDRD) Af Amer 14 L, Est GFR (MDRD) Non-Af 11 L, BUN/Creatinine Ratio 7.5 L, Glucose 103, Calcium 8.3 L Radiography Diagnostic Testing: Radiology Impression Echocardiogram 10/18/22 08:57 Interpretation Summary Left ventricular systolic function is normal. The estimated ejection fraction is 55 %. Mild concentric left ventricular hypertrophy. The left atrium is moderately enlarged. There is moderate to severe mitral annular calcification. Extension of the mitral annular calcification onto the base of the posterior mitral valve leaflet. Moderate (2+) eccentric mitral valve insufficiency. Mild to moderate (1-2+) eccentric tricuspid valve insufficiency. Mild diffuse aortic valve thickening. Mild focal aortic valve calcification. Trivial pulmonic valve insufficiency. Calcified aortic root. Right ventricular systolic pressure estimated to be 79 mmHg. Severe pulmonary hypertension. Stage 2 diastolic dysfunction. Ordering Physician: Gómez Pascal Referring Physician: AGGIE GODWIN Performed By: Antonia Romero RCS Meaningful Use Info Meaningful Use Diagnoses (Choose all that apply): AMI AMI/Post PCI/Angioplasty Aspirin given w/in 24hrs of arrival?: Yes ASA at discharge?: Yes Antiplatelet Therapy at Discharge:: Yes Statins at discharge?: Yes Gavin/ARB at discharge?: No Reason Gavin/ARB not ordered:: Not indicated Beta Sylvia at discharge?: Yes Done w/ Acute NV measure.: Yes Documented LVEF (%): 55 Discharge Plan Admission Admit Date/Time: 10/17/22 21:13 Attending Provider: Dallas Jung Primary Care Provider: Aggie Holman Consulting Providers: Gómez Pascal ; Elizabeth Reaves ; Estrellita Mcdowell Discharge Orders/Prescriptions Prescriptions: New atorvastatin 20 mg Tablet 20 mg PO QHS Qty: 0 0RF isosorbide mononitrate 30 mg Tablet Extended Release 24 Hr 60 mg PO DAILY Qty: 0 0RF clopidogrel 75 mg Tablet 75 mg PO DAILY Qty: 0 0RF amlodipine 10 mg Tablet 10 mg PO DAILY Qty: 0 0RF nitroglycerin 0.4 mg Tablet, Sublingual 0.4 mg sublingual Q5M PRN (Reason: CHEST PAIN) Qty: 0 0RF Continued donepezil 5 mg tablet 2.5 mg PO QHS carvedilol 6.25 mg tablet 6.25 mg PO BID calcium acetate(phosphat bind) 667 mg tablet 667 mg PO 3XD aspirin 81 mg tablet,delayed release (DR/EC) 81 mg PO DAILY Label Comments: TAKE 1 TABLET BY MOUTH EVERY DAY levothyroxine 100 mcg tablet 100 mcg PO SUSA levothyroxine 200 mcg tablet 200 mcg PO MOTUWEFR hydralazine 50 mg tablet 50 mg PO 2XD Referrals / Follow Up: Aggie Holman MD [Primary Care Provider] - Disposition Disposition (needs filled in before D/C Order can be placed): Intermediate Facility Charges/Coding Visit Charges Inpatient E&M: 25235 Disch Hosp
[2022-10-19] MEDS: amLODIPine 10 MG Tablet PO (10:38)
--- NOTE | 2022-10-19 10:56 | NURSING ---
I spoke with Anusha diaz's friend informing her of pt's d/c to [facility].
--- NOTE | 2022-10-19 10:57 | NURSING ---
I spoke with at Rosaura at [facility] to inform her of pt's d/c.
--- NOTE | 2022-10-19 11:56 | CASEMGMT ---
JOSE sent email to [facility] admission staff advising that patient was returning to [facility] today. Katy THOMPSON
--- NOTE | 2022-10-19 12:06 | PN.CARD_ITS ---
Subjective Subjective The patient is awake and alert. She denies any ongoing chest discomfort or difficulty breathing. Objective Data Vital Signs: Vital Signs Temp Pulse Resp BP Pulse Ox O2 Del Method 98.4 F 54 L 18 141/40 H 98 Room Air 10/19/22 10:37 10/19/22 10:37 10/19/22 10:37 10/19/22 10:37 10/19/22 10:37 10/19/22 10:37 Oxygen Delivery Method Room Air Weight: 127 lb 6.835 oz Body Mass Index (BMI) 26.6 Intake & Output: Intake and Output for Last 24 Hours 10/17/22 10/18/22 10/19/22 23:59 23:59 23:59 Intake Total 450.5 / 450.5 400 / 400 Balance 450.5 / 450.5 400 / 400 Lab / Micro Data Result Diagrams: 10/19/22 05:54 10/19/22 05:54 Labs: Laboratory Results - last 24 hr 10/19/22 05:54: WBC 4.3 L, RBC 2.35 L, Hgb 8.6 L, Hct 25.9 L, MCV 110.2 H, MCH 36.6 H, MCHC 33.2, RDW Std Deviation 62.5 H, RDW Coeff of Sotero 16.9 H, Plt Count 123 L, MPV 11.6, Immature Gran % (Auto) 0.200, Neut % (Auto) 70.8 H, Lymph % (Auto) 15.2 L, Logan % (Auto) 9.1, Eos % (Auto) 4.0, Baso % (Auto) 0.7, Absolute Neuts (auto) 3.0, Absolute Lymphs (auto) 0.65 L, Nucleated RBC % 0 10/19/22 05:54: PT 15.4 H, INR 1.3, APTT 30.5 10/19/22 05:54: Sodium 135 L, Potassium 4.4, Chloride 100, Carbon Dioxide 28.0, Anion Gap 7, BUN 30 H, Creatinine 3.98 H, Estim Creat Clear Calc 9.09, Est GFR (MDRD) Af Amer 14 L, Est GFR (MDRD) Non-Af 11 L, BUN/Creatinine Ratio 7.5 L, Glucose 103, Calcium 8.3 L Cardiology Labs/Tests 10/19/22 05:54: WBC 4.3 L, RBC 2.35 L, Hgb 8.6 L, Hct 25.9 L, MCV 110.2 H, MCH 36.6 H, MCHC 33.2, Plt Count 123 L, MPV 11.6, Immature Gran % (Auto) 0.200, Neut % (Auto) 70.8 H, Lymph % (Auto) 15.2 L, Logan % (Auto) 9.1, Eos % (Auto) 4.0, Baso % (Auto) 0.7, Absolute Neuts (auto) 3.0, Nucleated RBC % 0 10/19/22 05:54: PT 15.4 H, INR 1.3, APTT 30.5 10/19/22 05:54: Sodium 135 L, Potassium 4.4, Chloride 100, Carbon Dioxide 28.0, Anion Gap 7, BUN 30 H, Creatinine 3.98 H, Est GFR (MDRD) Af Amer 14 L, Est GFR (MDRD) Non-Af 11 L, BUN/Creatinine Ratio 7.5 L, Glucose 103, Calcium 8.3 L Rhythm: Sinus rhythm/sinus bradycardia Cardiac Cath: 10-18-2022 CONCLUSIONS [place] Multivessel CAD RECOMMENDATIONS Risk factor modification Medical therapy Case discussed / reviewed with Dr. Ramachandran of Interventional Cardiology: options are tertiary care center evaluation for CABG vs. high risk PCI of the LM/LAD and RCA. Case discussed / reviewed with the patient and her POA. S/P discussion of the case, the POA elected to proceed with conservative medical management and no further cardiac evaluation / procedures at a tertiary care center. Cased discussed / reviewed with Dr. Jung of the [facility] hospitalist staff. DESCRIPTION OF? PROCEDURE The patient arrived to the procedure lab. The risks and benefits of the procedure as well as a full description of our services here and current unavailability of surgical backup were fully explained to the patient and/or their significant other prior to the catheterization. The Timeout was completed, verifying the correct patient and procedure. The patient's procedural site was prepped and draped in the usual fashion. Local anesthetic was given subcutaneously to right groin region with Lidocaine 2%. Using a modified Seldinger technique, arterial access was obtained via the right femoral artery, a 4Fr sheath was inserted? Left Coronary Artery selective angiography was performed in multiple views using a 4 Fr. JL4 catheter. Right Coronary Artery selective angiography was then performed in multiple views using a 4 Fr. 3DRC catheter.The arterial sheath was pulled and manual compression applied until hemostasis is achieved. CORONARY ANGIOGRAPHY DOMINANCE:? Right Dominant LEFT HEART ASSESSMENT Left Ventricular Ejection Fraction: Not assessed LEFT MAIN: LM: ostial area: calcified, Catheter engagement: decreased arterial wave form / pressure damping, ostial/proximal: taperin % Stenosis LEFT ANTERIOR DESCENDING ARTERY: MID LAD: Previously placed stent has an instent irregular: 85 % restenosis CIRCUMFLEX ARTERY: Mild luminal irregularities RIGHT CORONARY ARTERY: OSTIAL RCA: ostial area: calcified, Catheter engagement: decreased arterial wave form / pressure damping, 50 % Stenosis PROX RCA: Mild luminal irregularities MID RCA: ectatic / aneurysmal appearing with irrgegular / ulcerated plaque appearing 75 % stenosis, diffuse: 75 % Stenosis COMPLICATIONS No Complications Physical Exam Narrative This is a pleasant 87-year-old white female who appears to be resting comfortably at the moment in no acute distress. Const alert and no apparent distress Orientation / Consciousness: awake HEENT normocephalic, head/scalp atraumatic and hearing grossly normal bilaterally Eyes PERRL, EOMs intact bilaterally, conjunctivae normal and no scleral icterus Neck full ROM, supple and no JVD Carotids: normal carotid upstroke Resp normal respiratory effort and clear to auscultation bilaterally Cardio regular rate, regular rhythm, S1 normal heart sound and S2 normal heart sound Heart Sounds: murmur systolic III/ soft mid left sternal border and LVOT Bruits: other Other Details: Left arm: AV fistula: Positive bruit GI normal to inspection, nondistended, normoactive bowel sounds Extremity no pedal edema Extremity Narrative: Right inguinal area: Pulse 2+/4+: No obvious bruit: No obvious hematoma Skin no rashes or lesions noted Psych Psych Narrative: Dementia Assessment & Plan Assessment/Plan (1) Non-ST elevation WI (NSTEMI): PLAN: The patient has abnormal cardiac enzymes compatible with a non-ST segment elevation WI. This may be related to an acute coronary syndrome with a type I event based upon the patient's history superimposed upon her cardiovascular risk factors and previous cardiovascular diagnosis. A component of elevated cardiac enzymes secondary to her chronic renal insufficiency/failure cannot necessarily be excluded. The patient has subsequently undergone evaluation with a transthoracic echocardiogram and a diagnostic cardiac catheterization. The results are as noted. Based upon the results of her cardiac catheterization and discussion (in person) with her POA, the POA elected to continue conservative medical management and not pursue tertiary care center evaluation for consideration for either high risk PCI or CABG. Thus the patient is continuing medical therapy at this time. (2) CAD (coronary artery disease): PLAN: Additional outside medical records were retrieved and reviewed. It appears in 2010 through the [facility] system the patient underwent cardiac catheterization/PCI to the LAD system. The patient has now been found to have progression of her CAD as noted by her cardiac catheterization. At the present time the consensus is to continue conservative medical management. This will include agents such as aspirin, antiplatelets with clopidogrel/Plavix, nitrates such as isosorbide, beta-blockers such as her carvedilol/Coreg taking into consideration her heart rate, lipid-lowering agents such as statins with atorvastatin, etc. (3) S/P PTCA (percutaneous transluminal coronary angioplasty): PLAN: The patient does have a history of previous LAD PCI. Her cardiac catheterization report is noted. At the moment the plan is for continued conservative medical management as described above. (4) Carotid disease, bilateral: PLAN: The patient has a history of carotid artery disease. She has undergone carotid artery percutaneous intervention and carotid artery endarterectomy. This does increase her risk for cardiovascular disease as well. She will continue medical management as deemed appropriate. (5) HLD (hyperlipidemia): PLAN: The patient has a history of hyperlipidemia. She will continue medical therapy with her statin therapy-atorvastatin. (6) HTN (hypertension): PLAN: The patient has a history of hypertension. She has required additional antihypertensive therapy with amlodipine/Norvasc to assist in bringing her blood pressure under better control. 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 Her cardiovascular evaluation will need to be coordinated with her dialysis therapy. (8) Anemia: PLAN: The patient has a history of anemia. It appears that this is thought to be related to her chronic renal insufficiency . (9) Dementia: PLAN: The patient is reported to have a history of dementia. The patient does have a POA who assists her in making her decisions. 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 She states this was placed several years ago. Addt'l Comments At the present time the plan is for continued conservative medical management. The patient's medications, as described above, will be adjusted based upon her cardiovascular symptoms and course. Otherwise, if the patient remains stable, there are no plans for additional cardiovascular diagnostic studies/procedures at this time. The patient wants to return to her extended care facility. The patient's case has been discussed and reviewed previously with the patient's power of quickbooks bookkeeper as well as with Dr. Jung. This note was generated using a voice recognition system and there may be incorrect words, spelling or punctuation that were not noted when reviewing the office note prior to saving. Procedure Criteria Type of Procedure Procedure Type: Elective Elective Risks - COVID COVID Risk Discussion: The surgeon/proceduralist and patient have discussed in detail the risk of exposure to and/or potential harm posed by the COVID-19 virus with having a surgery/procedure at this time versus the risk of delaying the surgery/procedure. It is not possible to know either the risk of delaying the surgery or procedure or chance of getting an infection with perfect accuracy, but a joint decision was made between the patient and the surgeon/proceduralist to proceed at this time with the scheduled surgery/procedure as indicated on the consent form.
--- NOTE | 2022-10-19 13:18 | NURSING ---
This RN called and gave report to SD Kaplan at [facility].
== END 2022-10-19 13:34 | disposition skilled nursing facility (03) | DRG 280 ==
LOC: ED 20:08 → PCU 22:30
PROVIDERS: Internal Medicine Cardiovascular Disease; Admitting Provider Family Medicine; Emergency Provider Emergency Medicine; PCP Internal Medicine; Visit Provider Internal Medicine
DX: T82.855A Stenosis of coronary artery stent, initial encounter (principal); I21.4 Non-ST elevation (NSTEMI) myocardial infarction; N18.6 End stage renal disease; I12.0 Hypertensive chronic kidney disease with stage 5 chronic kidney disease or end stage renal disease; I27.20 Pulmonary hypertension, unspecified; D63.1 Anemia in chronic kidney disease; Z99.2 Dependence on renal dialysis; I25.119 Atherosclerotic heart disease of native coronary artery with unspecified angina pectoris; F03.90 Unspecified dementia, unspecified severity, without behavioral disturbance, psychotic disturbance, mood disturbance, and anxiety; E78.5 Hyperlipidemia, unspecified; E03.9 Hypothyroidism, unspecified; F41.9 Anxiety disorder, unspecified; Z79.82 Long term (current) use of aspirin; Z98.61 Coronary angioplasty status; Z95.5 Presence of coronary angioplasty implant and graft; Z79.890 Hormone replacement therapy; Z79.899 Other long term (current) drug therapy; Z96.652 Presence of left artificial knee joint
CPT/HCPCS: 36415; 71045; 80048; 80053; 80061; 83735; 84100; 84484; 85025; 85610; 85730; 90937; 93005; 93306; 93454; 94668; 97802; 99152; 99153; 99251; 99285; J7030; A4216; C1894; G0257; G0463; Q9967

== ENCOUNTER → 2022-10-17 | Outpatient (REF) | payer MEDICARE, SELFPAY ==
[2022-10-17 10:14] LABS: Troponin-I HS 651 pg/mL (3.0-54.0)
== END ==
LOC: OLS.SW 05:00
PROVIDERS: Visit Provider Internal Medicine
DX: R07.9 Chest pain, unspecified (principal)
CPT/HCPCS: 36415; 84484

== ENCOUNTER → 2022-10-22 | Outpatient (REF) | payer MEDICARE, SELFPAY ==
[2022-10-22 09:20] LABS: Absolute Lymphocyte Count 0.75 X10^3/uL (0.83-4.51); Absolute Neutrophil Count 2.2 X10^3/uL (2.0-7.7); Basophil# 0.03 X10^3/uL; Basophil% 0.8 % (0-1); Eosinophil# 0.23 X10^3/uL; Eosinophils% 6.3 % (0-5); Hematocrit 27.1 % (37-47); Hemoglobin 8.7 g/dL (12.0-15.0); Lymphocyte # 0.75 X10^3/ul (0.83-4.51); Lymphocyte % 20.7 % (19-41); Mean Corp Hgb Conc 32.1 g/dL (32-36); Mean Corpuscular Hgb 36.7 pg (27.0-32.0); Mean Corpuscular Volume 114.3 fL (81-99); Mean Platelet Vol. 11.5 fl (6.2-12.0); Monocyte# 0.41 X10^3/uL; Monocyte% 11.3 % (0-10); NRBC Flagged by Analyzer 0 % (0-5); Neutrophil # 2.18 X10^3/uL (2.7-7.7); Neutrophil % 60.1 % (47-70); POSITIVE MORPHOLOGY YES; Platelet Count 138 K/mm3 (150-450); RBC Distribution Width SD 72.7 fl (35.1-43.9); Red Blood Count 2.37 M/mm3 (4.2-5.4); White Blood Count 3.6 K/mm3 (4.4-11.0)
[2022-10-22 09:25] LABS: Differential Indicated SCAN CRITERIA MET
[2022-10-22 09:28] LABS: Albumin, Serum 2.9 g/dL (3.2-5.0); BUN 51 mg/dL (7-18); BUN/Creat Ratio 9.3 RATIO (10-20); Calcium,Total 8.9 mg/dL (8.5-10.1); Chloride 101 mmol/L (98-107); Creatinine, Serum 5.51 mg/dL (0.55-1.02); EST Glomerular Filtration Rate 8 mL/min (>60); Est Glom Filt Rate - Afr Amer 9 mL/min (>60); Glucose 92 mg/dL (74-106); Phosphorus 3.4 mg/dL (2.5-4.9); Sodium Level 140 mmol/L (136-145)
[2022-10-22 10:14] LABS: Anisocytosis 1+
== END ==
LOC: OLS.SW 04:00
PROVIDERS: PCP Internal Medicine; Referring Provider Internal Medicine; Visit Provider Internal Medicine
DX: Z99.2 Dependence on renal dialysis (principal); Z79.899 Other long term (current) drug therapy
CPT/HCPCS: 36415; 80069; 85025

== ENCOUNTER → 2022-11-22 | Outpatient (REF) | payer MEDICARE, MEDICAID, SELFPAY ==
[2022-11-22 09:16] LABS: AST(SGOT) 22 U/L (15-37); Alanine Aminotransfer ALT/SGPT 19 U/L (13-56); Albumin, Serum 3.4 g/dL (3.2-5.0); Alkaline Phosphatase 89 U/L (45-117); Bilirubin, Direct 0.14 mg/dL (0.00-0.30); Cholesterol 115 mg/dL (200); High Density Lipoprotein 52 mg/dL; Protein, Total 6.4 g/dL (6.4-8.2); Triglycerides 91 mg/dL; Very Low Density Lipoprotein 18 mg/dL (5-40)
== END ==
LOC: OLS.SW 05:00
PROVIDERS: PCP Internal Medicine; Visit Provider Internal Medicine
DX: Z99.2 Dependence on renal dialysis (principal); N18.6 End stage renal disease
CPT/HCPCS: 80061; 80076

== ENCOUNTER → 2022-12-17 | Outpatient (REF) | payer MEDICARE, MEDICAID, SELFPAY ==
[2022-12-17 08:29] LABS: Albumin, Serum 3.4 g/dL (3.2-5.0); BUN 92 mg/dL (7-18); BUN/Creat Ratio 14.4 RATIO (10-20); Calcium,Total 8.9 mg/dL (8.5-10.1); Chloride 100 mmol/L (98-107); EST Glomerular Filtration Rate 7 mL/min (>60); Est Glom Filt Rate - Afr Amer 8 mL/min (>60); Glucose 91 mg/dL (74-106); Magnesium 1.9 mg/dL (1.6-2.6); Phosphorus 4.3 mg/dL (2.5-4.9); Sodium Level 137 mmol/L (136-145)
== END ==
LOC: OLS.SW 05:00
PROVIDERS: PCP Internal Medicine; Referring Provider Internal Medicine; Visit Provider Internal Medicine
DX: N18.6 End stage renal disease (principal)
CPT/HCPCS: 36415; 80069; 83735

== ENCOUNTER → 2023-01-14 | Outpatient (REF) | payer MEDICARE, MEDICAID, SELFPAY ==
[2023-01-14 09:06] LABS: Thyroid Stim Hormone (TSH) 1.33 uIU/mL (0.358-3.74)
== END ==
LOC: OLS.SW 05:00
PROVIDERS: PCP Internal Medicine; Visit Provider Internal Medicine
DX: E03.9 Hypothyroidism, unspecified (principal)
CPT/HCPCS: 36415; 84443

== ENCOUNTER → 2023-01-27 | Outpatient (REF) | payer MEDICARE, MEDICAID, SELFPAY ==
[2023-01-27 07:46] LABS: Hematocrit 23.4 % (37-47); Hemoglobin 7.3 g/dL (12.0-15.0); Mean Corp Hgb Conc 31.2 g/dL (32-36); Mean Corpuscular Hgb 34.9 pg (27.0-32.0); Mean Platelet Vol. 11.9 fl (6.2-12.0); Platelet Count 140 K/mm3 (150-450); RBC Distribution Width CV 13.3 % (11.6-14.6); RBC Distribution Width SD 54.9 fl (35.1-43.9); Red Blood Count 2.09 M/mm3 (4.2-5.4)
[2023-01-27 08:24] LABS: Albumin, Serum 3.2 g/dL (3.2-5.0); BUN 87 mg/dL (7-18); BUN/Creat Ratio 10.5 RATIO (10-20); Calcium,Total 9.1 mg/dL (8.5-10.1); Chloride 97 mmol/L (98-107); Creatinine, Serum 8.28 mg/dL (0.55-1.02); EST Glomerular Filtration Rate 5 mL/min (>60); Est Glom Filt Rate - Afr Amer 6 mL/min (>60); Glucose 98 mg/dL (74-106); Phosphorus 2.5 mg/dL (2.5-4.9); Potassium 4.5 mmol/L (3.5-5.1); Sodium Level 133 mmol/L (136-145); Thyroid Stim Hormone (TSH) 0.38 uIU/mL (0.358-3.74)
== END ==
LOC: OLS.SW 05:00
PROVIDERS: PCP Internal Medicine; Visit Provider Internal Medicine
DX: R53.83 Other fatigue (principal); N18.6 End stage renal disease
CPT/HCPCS: 36415; 80069; 84443; 85027

== ENCOUNTER 2023-02-02 13:47 | Emergency (ER) | payer MEDICARE, MEDICAID, SELFPAY ==
[2023-02-02 13:51] VITALS: BP 185/60; PULSE 75; RESP 19; TEMP 36.8; O2SAT 90; BMI 27.4
--- NOTE | 2023-02-02 14:02 | EX.ED.DYSGE1 ---
HPI History of Present Illness Chief Complaint: Chest Pain Narrative Narrative: Patient is a 87-year-old female who is here with multiple complaints. Patient's had cough and congestion for the past 1.5 months. Patient has some chest pain and tightness earlier this morning around 8 or 9 AM, that has resolved. Patient has been coughing, she states that she is not sure if she should spit out her phlegm or swallow it. Patient states has been like this for 1.5 months. Patient goes to dialysis on Friday, Friday, Friday and Friday. Patient told me immediately she does not want to be admitted to the hospital, she wanted to make sure that nothing else serious or acute is going on. Patient lives in a facility where they do in-house dialysis. Patient has a significant cardiac history as well where she had multiple stents in the past. Patient has no abdominal pain, nausea or vomiting. Patient states she feels much better now than she did several hours ago prior to arrival. She currently has no headache, no neck pain. No chest pain or shortness of breath. No abdominal pain, nausea or vomiting. Patient states she intermittently feels like she is choking on some phlegm, otherwise no acute complaints. Patient states that she is in a wheelchair. Patient states that she would like to go back to her facility so that she can get dialysis tomorrow. I told patient if she needs to be admitted to the hospital, we can do dialysis in the hospital. Patient is aware of this. Patient is initially from [place] by the [facility], and she moved down to this facility because they could do inpatient dialysis so she does not need to keep getting transported. 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 Carotid disease, bilateral Dementia DVT (deep venous thrombosis) End stage renal disease History of left heart catheterization (LHC) (~10/18/22) Hypertension Hypothyroidism IBS (irritable bowel syndrome) Non-ST elevation GA (NSTEMI) TIA (transient ischemic attack) Home Medications aspirin 81 mg tablet,delayed release 81 mg PO DAILY clot prevention 10/18/22 [History Last Taken 02/01/23] calcium acetate(phosphat bind) 667 mg tablet 667 mg PO 3XD Binder 10/18/22 [History Last Taken 02/01/23] carvedilol 6.25 mg tablet 6.25 mg PO BID heart 10/18/22 [History Last Taken 02/01/23] levothyroxine 100 mcg tablet 100 mcg PO SUSA thyroid 10/18/22 [History Last Taken 02/02/23] levothyroxine 200 mcg tablet 200 mcg PO MOTUWEFR hypothyroidism 10/18/22 [History Last Taken 01/31/23] clopidogrel 75 mg tablet 75 mg PO DAILY #0 tabs 10/19/22 [Rx Last Taken 02/01/23] nitroglycerin 0.4 mg sublingual tablet 0.4 mg sublingual Q5M PRN CHEST PAIN #0 tabs 10/19/22 [Rx Last Taken 02/02/23] isosorbide mononitrate 60 mg tablet,extended release 24 hr 60 mg PO DAILY #90 tabs 11/11/22 [Rx Last Taken 02/01/23] acetaminophen 325 mg tablet 650 mg PO DAILY HEADACHE 02/02/23 [History Last Taken 02/01/23] amlodipine 10 mg tablet 10 mg PO DAILY HTN 02/02/23 [History Last Taken 02/01/23] atorvastatin 20 mg tablet 20 mg PO QHS HLD 02/02/23 [History Last Taken 02/01/23] calcitriol 0.25 mcg capsule 0.25 mcg PO MOWEFR RENAL DISEASE 02/02/23 [History Last Taken 01/29/23] donepezil 10 mg tablet 10 mg PO DAILY VASCULAR DEMENTIA 02/02/23 [History Last Taken 02/01/23] famotidine 20 mg tablet 20 mg PO QHS IBS 02/02/23 [History Last Taken 02/01/23] hydralazine 100 mg tablet 100 mg PO TID KIDNEY DISEASE 02/02/23 [History Last Taken 02/02/23] levofloxacin 500 mg tablet 500 mg PO DAILY #7 tabs 02/02/23 [Rx Last Taken Unknown] loperamide 2 mg tablet 2 mg PO BID PRN Loose Stool 02/02/23 [History Last Taken 02/02/23] ondansetron HCl 4 mg tablet 4 mg PO DAILY IBS 02/02/23 [History Last Taken 01/27/23] sennosides 8.6 mg tablet (senna) 8.6 mg PO DAILY CONSTIPATION 02/02/23 [History Last Taken 02/01/23] Allergy/AdvReac Type Severity Reaction Status Date / Time codeine Allergy Hives Verified 02/02/23 13:50 morphine Allergy Hives Verified 02/02/23 13:50 oxycodone Allergy Hives Verified 02/02/23 13:50 propoxyphene Allergy NEEDS Verified 02/02/23 13:50 FOLLOW-UP tramadol Allergy NEEDS Verified 02/02/23 13:50 FOLLOW-UP Family History Mother Diabetes Father Diabetes Surgical History H/O coronary angioplasty History of back surgery History of total left knee replacement S/p bilateral carotid endarterectomy S/P PTCA (percutaneous transluminal coronary angioplasty) Social History household members: none housing: half-way Smoking Status: Never smoker alcohol intake: never substance use type: does not use ROS ROS ED ROS Narrative REVIEW OF SYSTEMS: Unless otherwise stated in this report the patient's positive and negative responses for review of systems for constitutional, eyes, ENT, cardiovascular, respiratory, gastrointestinal, neurological, , musculoskeletal, and integument systems and related systems to the presenting problem are either stated in the history of present illness or were not pertinent or were negative for the symptoms and/or complaints related to the presenting medical problem. EXAM Physical Exam Narrative Exam Narrative: Vital signs reviewed and patient is mild hypoxia, wears 4 L nasal cannula at all times General: The patient appears well and in no apparent distress. Patient is resting comfortably on cart. Not toxic, lethargic, or listless. Patient is very pleasant, joking, jovial. Skin: Warm, dry, no pallor noted. There is no rash noted. Patient he has healing bruising to the left side of her face from a fall several weeks ago. Patient has no headache, no neck pain Head: Normocephalic, atraumatic Eye: Normal conjunctiva, no drainage, EOMI. PERRL. Ears, Nose, Mouth, and Throat: oral mucosa is moist. Nares patent. Mouth without vesicles. Cardiovascular: Regular Rate and Rhythm, no murmurs, gallops, or rubs. No tenderness to palpation to bilateral anterior, lateral, posterior chest wall Respiratory: Patient is in no distress, no accessory muscle use, lungs are clear to auscultation, no wheezing, rales or rhonchi. Mild coarse breath sounds bilateral, equal breath sounds bilateral Back: non-tender, no CVA tenderness bilaterally to percussion. NO CTLS midline or paracervicl tenderness to palpation. GI: Soft, no tenderness to palpation, no masses appreciated. No rebound, guarding, or rigidity noted. Musculoskeletal: The patient has full range of motion of all extremities and joints with no difficulty. Patient has no motor, no sensory deficits. No peripheral edema. Patient has her fistula to her left upper extremity, bruits and thrills noted Neurological: A&O x4, normal speech, no focal neurological deficits. Psychiatric: Cooperative Const Vital Signs: 02/02/23 13:51 02/02/23 14:09 02/02/23 14:12 Temperature 98.2 F Temperature Source Oral Pulse Rate 75 Respiratory Rate 19 H Respiratory Effort Normal Non-Labored Blood Pressure 185/60 H Blood Pressure Mean 101 Pulse Ox 90 Oxygen Delivery Method Nasal Cannula Room Air Oxygen Flow Rate (L/min) 4 02/02/23 15:03 Temperature Temperature Source Pulse Rate Respiratory Rate Respiratory Effort Blood Pressure 164/63 H Blood Pressure Mean 96 Pulse Ox Oxygen Delivery Method Oxygen Flow Rate (L/min) [facility] Lab Data Labs: Laboratory Results - last 24 hr 02/02/23 02/02/23 02/02/23 14:36 14:36 14:36 WBC 6.7 RBC 2.08 L Hgb 7.4 L Hct 23.5 L MCV 113.0 H MCH 35.6 H MCHC 31.5 L RDW Std Deviation 57.1 H RDW Coeff of Sotero 13.9 Plt Count 125 L MPV 11.5 Immature Gran % (Auto) 0.400 Neut % (Auto) 91.0 H Lymph % (Auto) 3.9 L Pierce % (Auto) 4.5 Eos % (Auto) 0.1 Baso % (Auto) 0.1 Absolute Neuts (auto) 6.1 Absolute Lymphs (auto) 0.26 L Nucleated RBC % 0 Sodium 136 Potassium 4.3 Chloride 100 Carbon Dioxide 31.0 Anion Gap 5 BUN 85 H Creatinine 6.78 H Estim Creat Clear Calc 5.50 Est GFR (MDRD) Af Amer 7 L Est GFR (MDRD) Non-Af 6 L BUN/Creatinine Ratio 12.5 Glucose 176 H Calcium 9.4 Magnesium 2.1 Troponin I High Sens 190 H* B-Natriuretic Peptide 2270.7 H 02/02/23 15:35 WBC RBC Hgb Hct MCV MCH MCHC RDW Std Deviation RDW Coeff of Sotero Plt Count MPV Immature Gran % (Auto) Neut % (Auto) Lymph % (Auto) Pierce % (Auto) Eos % (Auto) Baso % (Auto) Absolute Neuts (auto) Absolute Lymphs (auto) Nucleated RBC % Sodium Potassium Chloride Carbon Dioxide Anion Gap BUN Creatinine Estim Creat Clear Calc Est GFR (MDRD) Af Amer Est GFR (MDRD) Non-Af BUN/Creatinine Ratio Glucose Calcium Magnesium Troponin I High Sens 251 H* B-Natriuretic Peptide Radiography Chest X-Ray - ED: 1 View and Read by ED Physician (Chest x-ray shows bilateral infiltrate, questionable small bilateral pleural effusion, no pneumothorax, mild cardiomegaly) Diagnostic Testing: Clinical Impression(s) from Imaging Studies Chest X-Ray 02/02/23 15:03 IMPRESSION: Bilateral pneumonia. Electronically Signed: Yury Sarmiento MD at 15:13 EDT Reading Location ID and State: [facility] / [place] , Service support , EKG Initial EKG: Attestation: I personally reviewed and interpreted this EKG as follows: Comments: EKG interpretation. Normal sinus rhythm at 71 beats a minute. Normal axis deviation. Artifact noted. No acute ST elevation. QTc of 449. EKG reading LVH. Treatment and Re-Evaluation :: Patient has a hemoglobin of 7.4. The patient has had low blood levels in the past, patient states she never had a blood transfusion before. Reassessing patient's conjunctive, they did not appear to be extremely pale. Patient does not he have a significant mount of pannus underneath her tongue as well sublingual. Patient wears 4 L nasal cannula at all times, patient oxygen has been anywhere between 92-94%. Patient's breathing is not labored, she does not feel short of breath. Patient states she has had more cough and congestion. Patient is due to have dialysis tomorrow. Patient to go on Friday. Patient typically goes to dialysis on Friday, Friday, Friday and Friday. Patient has elevated troponin, this was repeated and it was slightly elevated again, however patient's had higher troponin levels in the past. I did discuss this with cementer machine joiner on-call, Dr. Gaitan, and he stated that we did not need to do the second troponin, patient can be disposition and call the office for follow-up. When patient arrived, she had no chest pain, no shortness of breath, just cough and congestion. Patient is aware of hemoglobin is 7.4. Patient's had no hematemesis, no melena, no maroon stools, no bloody stools. Patient also is aware of bilateral pneumonia, right greater than left. Patient is a failure of elevated troponin as well, but this could be possible secondary to end-stage renal disease. It was recommended the patient to be admitted to the hospital for multiple reasons of pneumonia, anemia, and further evaluation. Patient states that coming to the ER today was a vacation, she does not want to be admitted to the hospital, she would like to go home because she knows she needs dialysis tomorrow. Patient is aware that we do do dialysis in the hospital if needed. Patient has been extremely pleasant, despite recommendations of being admitted, patient would like to go home. Patient was given a dose of IV Levaquin in the ER. Patient was given a smaller dose of Levaquin to 500 mg secondary to renal function. Patient was told to please have shortly to return to the ER if she has any chest pain, tightness, if her shortness of breath which started and get worse, or any other acute concerns. Patient has dialysis at 8AM tomorrow morning. Patient said that they could be reevaluated tomorrow morning with dialysis. Patient is comfortable going home, very thankful. Discharge Plan Triage Chief Complaint: Chest Pain ED Provider: Blair Barlow Dx/Rx/DC Orders Clinical Impression: Pneumonia, End-stage renal disease (ESRD), Anemia, Elevated troponin, Sinusitis Instructions: Anemia, Anemia and Kidney Disease, Causes of Sinusitis, ED Chronic Kidney Disease (CKD), ED Pneumonia (Adult) Prescriptions: New levofloxacin 500 mg tablet 500 mg PO DAILY Qty: 7 0RF No Action isosorbide mononitrate 60 mg tablet extended release 24 hr 60 mg PO DAILY Qty: 90 3RF carvedilol 6.25 mg tablet 6.25 mg PO BID calcium acetate(phosphat bind) 667 mg tablet 667 mg PO 3XD aspirin 81 mg tablet,delayed release (DR/EC) 81 mg PO DAILY Label Comments: TAKE 1 TABLET BY MOUTH EVERY DAY levothyroxine 100 mcg tablet 100 mcg PO SUSA levothyroxine 200 mcg tablet 200 mcg PO MOTUWEFR clopidogrel 75 mg Tablet 75 mg PO DAILY Qty: 0 0RF nitroglycerin 0.4 mg Tablet, Sublingual 0.4 mg sublingual Q5M PRN (Reason: CHEST PAIN) Qty: 0 0RF sennosides [senna] 8.6 mg Tablet 8.6 mg PO DAILY acetaminophen 325 mg Tablet 650 mg PO DAILY donepezil 10 mg tablet 10 mg PO DAILY ondansetron HCl 4 mg Tablet 4 mg PO DAILY loperamide 2 mg Tablet 2 mg PO BID PRN (Reason: Loose Stool) famotidine 20 mg tablet 20 mg PO QHS hydralazine 100 mg tablet 100 mg PO TID calcitriol 0.25 mcg Capsule 0.25 mcg PO MOWEFR atorvastatin 20 mg tablet 20 mg PO QHS amlodipine 10 mg tablet 10 mg PO DAILY Primary Care Provider: Cat Holman Referrals: Cat Holman MD [Primary Care Provider] - Activity Restrictions/Additional Instructions: Continue with dialysis on Friday, Friday, Friday and Friday. Antibiotic was given in the ER today, take your next dose of antibiotic tomorrow. I have spoken to the cementer machine joiner on-call today, Dr. Gaitan. Call the cardiology office tomorrow for any other additional concerns or follow-up. Your hemoglobin level today was 7.4. You have had low hemoglobin levels in the past as well. HOWEVER< If you start having chest pain, tightness, more shortness of breath, fatigue, weakness, or coughing gets worse or any acute changes, return to the ER. You did not want to stay in the hospital tonight, you want to go home and have dialysis tomorrow, but if any other acute changes occur, please return. Is been a pleasure take care of you today. :} DR BARLOW Disposition Disposition: Home, Self Care
--- NOTE | 2023-02-02 14:04 | EKG12_ITS ---
Test Reason : CHEST PAIN Blood Pressure : / mmHG Vent. 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
[2023-02-02 14:42] LABS: Absolute Lymphocyte Count 0.26 X10^3/uL (0.83-4.51); Absolute Neutrophil Count 6.1 X10^3/uL (2.0-7.7); Basophil# 0.01 X10^3/uL; Basophil% 0.1 % (0-1); Eosinophil# 0.01 X10^3/uL; Eosinophils% 0.1 % (0-5); Hematocrit 23.5 % (37-47); Hemoglobin 7.4 g/dL (12.0-15.0); Lymphocyte # 0.26 X10^3/ul (0.83-4.51); Lymphocyte % 3.9 % (19-41); Mean Corp Hgb Conc 31.5 g/dL (32-36); Mean Corpuscular Hgb 35.6 pg (27.0-32.0); Mean Platelet Vol. 11.5 fl (6.2-12.0); Monocyte% 4.5 % (0-10); NRBC Flagged by Analyzer 0 % (0-5); Neutrophil # 6.13 X10^3/uL (2.7-7.7); POSITIVE DIFFERENTIAL YES; Platelet Count 125 K/mm3 (150-450); RBC Distribution Width CV 13.9 % (11.6-14.6); RBC Distribution Width SD 57.1 fl (35.1-43.9); Red Blood Count 2.08 M/mm3 (4.2-5.4); White Blood Count 6.7 K/mm3 (4.4-11.0)
[2023-02-02 14:43] LABS: Differential Indicated SCAN CRITERIA MET
[2023-02-02] MEDS: Aspirin 81 MG TAB.CHEW 324 MG PO (15:00)
[2023-02-02 15:03] VITALS: BP 164/63
--- NOTE | 2023-02-02 15:03 | RAD_ITS ---
STUDY: XR Chest 1 View 02/02/2023 2:56 PM REASON FOR EXAM: Female, 87 years old. CHEST PAIN chest pain COMPARISON: 10/17/2022 TECHNIQUE: XR Chest 1 View FINDINGS: There is no demonstrated pleural abnormality. There is bilateral infiltrate / atelectasis. Left axillary stent graft. Enlarged heart size. Normal mediastinum. Normal lara. Prominent appearing increased interstitial lung markings. Normal visualized pulmonary arteries. There is atherosclerotic calcification of the aortic arch with tortuosity. There are diffuse degenerative changes of the visualized thoracic spine. There is degenerative osteoarthritis of the bilateral shoulders. There is no demonstrated abnormality of the visualized soft tissue structures of the upper abdomen. RAD/Chest 1 View (Portable) IMPRESSION: Bilateral pneumonia. Electronically Signed: Yury Sarmiento MD at 15:13 EDT ,
[2023-02-02 15:05] LABS: BNP,B-Type NATRIURETIC PEPTIDE 2270.7 pg/mL (0-100)
[2023-02-02 15:21] LABS: Anion Gap 5 (5-15); BUN 85 mg/dL (7-18); BUN/Creat Ratio 12.5 RATIO (10-20); Calcium,Total 9.4 mg/dL (8.5-10.1); Chloride 100 mmol/L (98-107); Creatinine, Serum 6.78 mg/dL (0.55-1.02); EST Glomerular Filtration Rate 6 mL/min (>60); Est Glom Filt Rate - Afr Amer 7 mL/min (>60); Glucose 176 mg/dL (74-106); Magnesium 2.1 mg/dL (1.6-2.6); Potassium 4.3 mmol/L (3.5-5.1); Sodium Level 136 mmol/L (136-145); Troponin-I HS (w/2H Reflex) 190 pg/mL (3.0-54.0)
[2023-02-02 16:12] LABS: Troponin-I HS 251 pg/mL (3.0-54.0)
[2023-02-02 16:39] LABS: Reflex Troponin-HS? (from REC) Y
[2023-02-02] MEDS: levoFLOXacin IV 500 MG/100 ML BAG 100 MG IV (16:43)
[2023-02-02 17:39] VITALS: BP 138/61; PULSE 69; RESP 18; TEMP 36.8; O2SAT 94
== END 2023-02-02 17:59 | disposition home or self-care (01) ==
PROVIDERS: Emergency Provider Emergency Medicine; PCP Internal Medicine; Visit Provider Emergency Medicine
DX: J18.9 Pneumonia, unspecified organism (principal); N18.6 End stage renal disease; I12.0 Hypertensive chronic kidney disease with stage 5 chronic kidney disease or end stage renal disease; I25.10 Atherosclerotic heart disease of native coronary artery without angina pectoris; D64.9 Anemia, unspecified; J32.9 Chronic sinusitis, unspecified; I25.2 Old myocardial infarction; E03.9 Hypothyroidism, unspecified; Z86.718 Personal history of other venous thrombosis and embolism; Z86.73 Personal history of transient ischemic attack (TIA), and cerebral infarction without residual deficits; Z79.82 Long term (current) use of aspirin; Z79.899 Other long term (current) drug therapy
CPT/HCPCS: 71045; 80048; 83735; 83880; 84484; 85025; 93005; A4216

== ENCOUNTER 2023-02-02 18:57 | Inpatient (IN) | payer MEDICARE, MEDICAID, SELFPAY ==
[2023-02-02] VITALS (7 sets, daily range): BP systolic 158–220; BP diastolic 50–64; PULSE 60–71; RESP 12–32; TEMP 36.4–36.7; O2SAT 91–99; BMI 26.7; BMI 25.7
--- NOTE | 2023-02-02 19:12 | EKG12_ITS ---
Test Reason : SOB Blood Pressure : / mmHG Vent. Rate : 068 BPM Atrial Rate : 068 BPM P-R Int : 176 ms QRS Dur : 102 ms QT Int : 426 ms P-R-T Axes : 054 020 033 degrees QTc Int : 452 ms Sinus rhythm with Premature atrial complexes Left ventricular hypertrophy with repolarization abnormality ( Sokolow-Maradiaga ) Abnormal ECG When compared with ECG of 02-FEB-2023 13:55, MANUAL COMPARISON REQUIRED, DATA IS UNCONFIRMED Confirmed by ELIANA OCHOA, RACHNA ([id number]), photographic editor AMILCAR WELLINGTON ([id number]) on 02/10/2023 1:53:01 PM Referred By: YANY Confirmed By:RACHNA MONROY MD
--- NOTE | 2023-02-02 19:22 | ED.VIS.DYS ---
HPI History of Present Illness Chief Complaint: Shortness of Breath Narrative Narrative: 87-year-old female here for shortness of breath. Patient states she became severely short of breath after being discharged for pneumonia upon arrival to her facility. She denies any chest pain. The patient denies recent surgery in the last 4 weeks or immobilization in the last 3 days, hemoptysis, unilateral leg swelling or malignancy with treatment the last 6 months. No estrogen use noted. 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 Carotid disease, bilateral Dementia DVT (deep venous thrombosis) End stage renal disease History of left heart catheterization (LHC) (~10/18/22) Hypertension Hypothyroidism IBS (irritable bowel syndrome) Non-ST elevation [place] (NSTEMI) TIA (transient ischemic attack) Home Medications aspirin 81 mg tablet,delayed release 81 mg PO DAILY clot prevention 10/18/22 [History Last Taken 02/01/23] calcium acetate(phosphat bind) 667 mg tablet 667 mg PO TID Binder 10/18/22 [History Last Taken 02/01/23] carvedilol 6.25 mg tablet 6.25 mg PO BID heart 10/18/22 [History Last Taken 02/01/23] levothyroxine 100 mcg tablet 100 mcg PO SUSA thyroid 10/18/22 [History Last Taken 02/02/23] levothyroxine 200 mcg tablet 200 mcg PO MOTUWEFR hypothyroidism 10/18/22 [History Last Taken 01/31/23] clopidogrel 75 mg tablet 75 mg PO DAILY #0 tabs 10/19/22 [Rx Last Taken 02/01/23] nitroglycerin 0.4 mg sublingual tablet 0.4 mg sublingual Q5M PRN CHEST PAIN #0 tabs 10/19/22 [Rx Last Taken 02/02/23] isosorbide mononitrate 60 mg tablet,extended release 24 hr 60 mg PO DAILY #90 tabs 11/11/22 [Rx Last Taken 02/01/23] acetaminophen 325 mg tablet 650 mg PO DAILY headache 02/02/23 [History Last Taken 02/01/23] amlodipine 10 mg tablet 10 mg PO DAILY HTN 02/02/23 [History Last Taken 02/01/23] atorvastatin 20 mg tablet 20 mg PO QHS HLD 02/02/23 [History Last Taken 02/01/23] donepezil 10 mg tablet 10 mg PO DAILY VASCULAR DEMENTIA 02/02/23 [History Last Taken 02/01/23] famotidine 20 mg tablet 20 mg PO QHS IBS 02/02/23 [History Last Taken 02/01/23] hydralazine 100 mg tablet 100 mg PO TID KIDNEY DISEASE 02/02/23 [History Last Taken 02/02/23] levofloxacin 500 mg tablet 500 mg PO DAILY #7 tabs 02/02/23 [Rx Last Taken Unknown] loperamide 2 mg tablet 2 mg PO BID PRN Loose Stool 02/02/23 [History Last Taken 02/02/23] ondansetron HCl 4 mg tablet 4 mg PO DAILY IBS 02/02/23 [History Last Taken 01/27/23] sennosides 8.6 mg tablet (senna) 8.6 mg PO DAILY CONSTIPATION 02/02/23 [History Last Taken 02/01/23] Allergy/AdvReac Type Severity Reaction Status Date / Time codeine Allergy Hives Verified 02/02/23 19:10 morphine Allergy Hives Verified 02/02/23 19:10 oxycodone Allergy Hives Verified 02/02/23 19:10 propoxyphene Allergy NEEDS Verified 02/02/23 19:10 FOLLOW-UP tramadol Allergy NEEDS Verified 02/02/23 19:10 FOLLOW-UP Family History Mother Diabetes Father Diabetes Surgical History H/O coronary angioplasty History of back surgery History of total left knee replacement S/p bilateral carotid endarterectomy S/P PTCA (percutaneous transluminal coronary angioplasty) Social History household members: none housing: [facility] Smoking Status: Never smoker alcohol intake: never substance use type: does not use ROS ROS ED ROS Narrative Constitutional: Denies fever HEENT: Denies sore throat Neck: Denies neck pain Cardiovascular: Denies chest pain, syncope Respiratory: Denies shortness of breath GI: Denies nausea vomiting or abdominal pain : Denies changes in urinary habits Musculoskeletal: Denies muscle or joint pain Neurologic: Denies numbness weakness or loss of sensation Skin denies rash EXAM Physical Exam Narrative Exam Narrative: Nursing triage notes reviewed, Vital signs reviewed Constitutional: please see mdm HENT: MMM Eyes: Pupils equal round and reactive to light, Extraocular muscles intact Neck: No stridor, no JVD, full neck ROM Lungs: Increased work of breathing, conversational dyspnea, no obvious rales., Nonrebreather mask in place. Heart: Regular rate and rhythm, No murmurs, No rubs and No gallops, 2+ distal pulses (radial, femoral, posterior tibial) in all extremities Abdomen: Soft, there is no tenderness, rigidity, rebound or guarding, no obvious peritoneal signs, no palpable pulsatile abdominal masses, no auscultated abdominal bruit : No CVAT Extremities: No edema, palpable thrill on left fistula Neuro: No focal neurological deficits, cranial nerves II through XII intact, 5/5 strength in all extremities. Intact sensation to light touch in all extremities, 2+ reflexes bilateral patella dens. Normal gait. No ataxia. Skin: No rash or lesions noted Const Vital Signs: 02/02/23 18:58 02/02/23 19:55 02/02/23 20:40 Temperature 98.1 F Temperature Source Axillary Pulse Rate 71 68 60 Respiratory Rate 20 H 32 H 27 H Respiratory Pattern Tachypnea Tachypnea Blood Pressure 220/64 H Blood Pressure Mean 116 Pulse Ox 98 99 96 Oxygen Delivery Method Room Air Oxygen Flow Rate (L/min) Fraction of Inspired Oxygen (FIO2) 60 40 02/02/23 20:59 02/02/23 21:00 Temperature 97.6 F L Temperature Source Temporal Pulse Rate 66 Respiratory Rate 18 Respiratory Pattern Blood Pressure 200/61 H Blood Pressure Mean 107 Pulse Ox 93 93 Oxygen Delivery Method Bi-pap Nasal Cannula Oxygen Flow Rate (L/min) 5 Fraction of Inspired Oxygen (FIO2) 40 [facility] Narrative Medical decision making narrative: Chief Complaint: Shortness of breath, hypoxia External records reviewed: Seen prior to arrival. Diagnosed bilateral pneumonia given 1 dose of Levaquin offered admission however refused. This work-up revealed no leukocytosis, worsening anemia 7.4, there were no significant electrolyte abnormalities, there was end-stage renal disease noted. Initial troponin was elevated x2. Patient's BNP was elevated likely secondary to end-stage renal disease increased volume. Chest x-ray showed evidence of bilateral pneumonia I considered the following differential diagnosis: Bilateral pneumonia, flash pulmonary edema Upon arrival to the ED patient was saturating 100% on nonrebreather 15 L. She had increased work of breathing and conversational dyspnea. She was started immediately on BiPAP at 12/6 for work of breathing. I obtained an x-ray, ABG, EKG. The studies were remarkable for no evidence of STEMI or new arrhythmia. ABG without evidence of significant hypoxia. Chest x-ray with bilateral pneumonia no significant changes from prior. Agree with patient home blood pressure medicine given initial hypotension which improved. Given hypoxia, need for rescue BiPAP patient will need admission to the intensive care unit for further evaluation and treatment. Discussed with hospitalist @ 8:58pm. Hospitalist recommend admission to PCU, inpatient @ 9:35pm Factors affecting care: End-stage renal disease, bilateral pneumonia, history of DVT Social determinants of health: Poor health literacy History obtained from others: EMS Shared decision making: I will have a discussion with the patient and or visitors regarding risk/benefits of further testing or admission. They will be made aware of of the risk/benefits inherent in this decision they will be given the opportunity to voice understanding. Consults: Internal medicine, critical care Goals of care discussion: Patient is full code. She is okay with intubation and CPR Lab Data Attestation: I reviewed the patient's lab results. Lab results narrative: Please see above MDM EKG with normal sinus rhythm, normal axis, normal intervals, no STEMI ABG Data ABG results: ABG 02/02/23 19:42 Specimen Type ART Sample Site R Radial pH 7.38 Bicarbonate Actual 32.3 H Total CO2 34 Base Excess 7 H O2 Saturation 99 O2 % 100 ABG pCO2 54.3 H ABG pO2 127 H Kali Test Positive O2 Delivery Device NRB Radiography Chest X-Ray - ED: Read by ED Physician Diagnostic Testing: Clinical Impression(s) from Imaging Studies Chest X-Ray 02/02/23 20:10 IMPRESSION: There has been no change in the appearance of the chest since the prior study. Electronically Signed: Yury Sarmiento MD at 20:24 EDT , Chest x-ray shows evidence of bilateral pneumonia no obvious pulmonary edema. Looks essentially unchanged from earlier Discharge Plan Triage Chief Complaint: Shortness of Breath ED Provider: Mike Trejo Dx/Rx/DC Orders Prescriptions: No Action isosorbide mononitrate 60 mg tablet extended release 24 hr 60 mg PO DAILY Qty: 90 3RF carvedilol 6.25 mg tablet 6.25 mg PO BID calcium acetate(phosphat bind) 667 mg tablet 667 mg PO TID aspirin 81 mg tablet,delayed release (DR/EC) 81 mg PO DAILY Label Comments: TAKE 1 TABLET BY MOUTH EVERY DAY levothyroxine 100 mcg tablet 100 mcg PO SUSA levothyroxine 200 mcg tablet 200 mcg PO MOTUWEFR clopidogrel 75 mg Tablet 75 mg PO DAILY Qty: 0 0RF nitroglycerin 0.4 mg Tablet, Sublingual 0.4 mg sublingual Q5M PRN (Reason: CHEST PAIN) Qty: 0 0RF sennosides [senna] 8.6 mg Tablet 8.6 mg PO DAILY acetaminophen 325 mg Tablet 650 mg PO DAILY donepezil 10 mg tablet 10 mg PO DAILY ondansetron HCl 4 mg Tablet 4 mg PO DAILY loperamide 2 mg Tablet 2 mg PO BID PRN (Reason: Loose Stool) famotidine 20 mg tablet 20 mg PO QHS hydralazine 100 mg tablet 100 mg PO TID atorvastatin 20 mg tablet 20 mg PO QHS amlodipine 10 mg tablet 10 mg PO DAILY levofloxacin 500 mg tablet 500 mg PO DAILY Qty: 7 0RF Primary Care Provider: Cat Holman Referrals: Cat Holman MD [Primary Care Provider] -
[2023-02-02] MEDS: Ondansetron 4 MG/2 ML Vial IV (19:25)
[2023-02-02 19:51] LABS: Allen Test Positive; Base Excess 7 mmol/L (-2 to +2); Bicarbonate 32.3 mmol/L (22-26); Blood Gas Specimen Type ART; FI02 100; O2 Delivery Device NRB; PO2 127 mmHG (75-100); SITE R Radial; SO2 99 % (95-99); Total Carbon Dioxide 34 mmol/L; pCO2 54.3 mmHg (35-45); pH 7.38 (7.35-7.45)
--- NOTE | 2023-02-02 20:10 | RAD_ITS ---
STUDY: XR Chest 1 View 02/02/2023 8:10 PM REASON FOR EXAM: Female, 87 years old. CHEST PAIN hypoxia COMPARISON: Study done earlier today. TECHNIQUE: XR Chest 1 View FINDINGS: There is no demonstrated pleural abnormality. There is bilateral infiltrate / atelectasis. Left axillary stent graft. Enlarged heart size. Normal mediastinum. Normal lara. Prominent appearing increased interstitial lung markings. Normal visualized pulmonary arteries. There is atherosclerotic calcification of the aortic arch with tortuosity. There are diffuse degenerative changes of the visualized thoracic spine. There is degenerative osteoarthritis of the bilateral shoulders. There is no demonstrated abnormality of the visualized soft tissue structures of the upper abdomen. RAD/Chest 1 View (Portable) IMPRESSION: There has been no change in the appearance of the chest since the prior study. Electronically Signed: Yury Sarmiento MD at 20:24 EDT ,
[2023-02-02] MEDS: hydrALAZINE 50 MG Tablet 100 MG PO (20:58)
[2023-02-02] MEDS: Isosorbide Mononitrate 60 MG Tablet PO (20:58)
--- NOTE | 2023-02-02 21:51 | HP.PCM.HOS_ITS ---
HPI - General General Date of Admission: 02/02/23 Date of Service: 02/02/23 Chief Complaint: Productive cough HPI Narrative PRASANNA VARGAS, is a 87 F with a significant history of hypertension; hypothyroidism; and NSTEMI who presents to the emergency with one to two month history of productive cough of thick clear sputum. Patient denies chest pain. However she report that while in her bed she hit something with her left arm. Later she denied hitting anything. Patient complains of chills. History is inconsistent and difficult to obtain. From review of the paramedics notes paramedics was called to the [facility] where patient lives because patient has chest pain. Chest pain is midsternal, also patient has pain in neck and cramps all over. Further, Per paramedics notes patient had shortness of breath. It is patient's second visit to the emergency department in the same day. On the first visit because the patient did not want to be admitted she was discharged back to the [facility] only to return back with same symptoms. On the first emergency visit chest x-ray was interpreted as bilateral pneumonia. On the second emergency visit chest x-ray obtained was not different from previous chest x-ray obtained on the first visit. 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 Carotid disease, bilateral Dementia DVT (deep venous thrombosis) End stage renal disease History of left heart catheterization (LHC) (~10/18/22) Hypertension Hypothyroidism IBS (irritable bowel syndrome) Non-ST elevation [place] (NSTEMI) TIA (transient ischemic attack) Home Medications aspirin 81 mg tablet,delayed release 81 mg PO DAILY clot prevention 10/18/22 [History Last Taken 02/01/23] calcium acetate(phosphat bind) 667 mg tablet 667 mg PO TID Binder 10/18/22 [History Last Taken 02/01/23] carvedilol 6.25 mg tablet 6.25 mg PO BID heart 10/18/22 [History Last Taken 02/01/23] levothyroxine 100 mcg tablet 100 mcg PO SUSA thyroid 10/18/22 [History Last Taken 02/02/23] levothyroxine 200 mcg tablet 200 mcg PO MOTUWEFR hypothyroidism 10/18/22 [History Last Taken 01/31/23] clopidogrel 75 mg tablet 75 mg PO DAILY #0 tabs 10/19/22 [Rx Last Taken 02/01/23] nitroglycerin 0.4 mg sublingual tablet 0.4 mg sublingual Q5M PRN CHEST PAIN #0 tabs 10/19/22 [Rx Last Taken 02/02/23] isosorbide mononitrate 60 mg tablet,extended release 24 hr 60 mg PO DAILY #90 tabs 11/11/22 [Rx Last Taken 02/01/23] acetaminophen 325 mg tablet 650 mg PO DAILY headache 02/02/23 [History Last Taken 02/01/23] amlodipine 10 mg tablet 10 mg PO DAILY HTN 02/02/23 [History Last Taken 02/01/23] atorvastatin 20 mg tablet 20 mg PO QHS HLD 02/02/23 [History Last Taken 02/01/23] donepezil 10 mg tablet 10 mg PO DAILY VASCULAR DEMENTIA 02/02/23 [History Last Taken 02/01/23] famotidine 20 mg tablet 20 mg PO QHS IBS 02/02/23 [History Last Taken 02/01/23] hydralazine 100 mg tablet 100 mg PO TID KIDNEY DISEASE 02/02/23 [History Last Taken 02/02/23] levofloxacin 500 mg tablet 500 mg PO DAILY #7 tabs 02/02/23 [Rx Last Taken Unknown] loperamide 2 mg tablet 2 mg PO BID PRN Loose Stool 02/02/23 [History Last Taken 02/02/23] ondansetron HCl 4 mg tablet 4 mg PO DAILY IBS 02/02/23 [History Last Taken 01/27/23] sennosides 8.6 mg tablet (senna) 8.6 mg PO DAILY CONSTIPATION 02/02/23 [History Last Taken 02/01/23] Allergy/AdvReac Type Severity Reaction Status Date / Time codeine Allergy Hives Verified 02/02/23 19:10 morphine Allergy Hives Verified 02/02/23 19:10 oxycodone Allergy Hives Verified 02/02/23 19:10 propoxyphene Allergy NEEDS Verified 02/02/23 19:10 FOLLOW-UP tramadol Allergy NEEDS Verified 02/02/23 19:10 FOLLOW-UP Family History Mother Diabetes Father Diabetes Surgical History H/O coronary angioplasty History of back surgery History of total left knee replacement S/p bilateral carotid endarterectomy S/P PTCA (percutaneous transluminal coronary angioplasty) Social History household members: none housing: prison Smoking Status: Never smoker alcohol intake: never substance use type: does not use ROS Review of Systems ROS Unobtainable: other Details: Patient is a poor historian. Vital Signs Vital Signs Vital Signs: 02/02/23 18:58 02/02/23 19:55 02/02/23 20:40 Temperature 98.1 F Temperature Source Axillary Pulse Rate 71 68 60 Respiratory Rate 20 H 32 H 27 H Respiratory Pattern Tachypnea Tachypnea Blood Pressure 220/64 H Blood Pressure Mean 116 Pulse Ox 98 99 96 Oxygen Delivery Method Room Air Oxygen Flow Rate (L/min) Fraction of Inspired Oxygen (FIO2) 60 40 02/02/23 20:59 02/02/23 21:00 Temperature 97.6 F L Temperature Source Temporal Pulse Rate 66 Respiratory Rate 18 Respiratory Pattern Blood Pressure 200/61 H Blood Pressure Mean 107 Pulse Ox 93 93 Oxygen Delivery Method Bi-pap Nasal Cannula Oxygen Flow Rate (L/min) 5 Fraction of Inspired Oxygen (FIO2) 40 Weight Weight: 58.1 kg Body Mass Index (BMI) 26.7 Physical Exam Narrative Physical exam: General: Well-nourished, well-developed. Head: Normocephalic, atraumatic, no tenderness Eyes: Vision is grossly intact. EOMI ENT, no trauma, moist mucous membranes, no rhinorrhea Neck: Nontender, No thyromegaly. CVS: Regular rate and rhythm. S1-S2 present. No murmur, gallop or rub. Respiratory : Diminished with rales; bilaterally, chest wall nontender Abdomen: Soft, nontender, nondistended, normal bowel sounds, no masses : Deferred Back: Nontender, no CVA tenderness. Extremities: Nontender full range of motion, no trauma Skin: Normal color, no trauma, abrasions Neuro: Alert, oriented, cranial nerves II through XII grossly intact. Psychiatry: Normal mood. Normal affect. Not depressed. Not anxious. Results ABG Data ABG results: ABG 02/02/23 19:42 Specimen Type ART Sample Site R Radial pH 7.38 Bicarbonate Actual 32.3 H Total CO2 34 Base Excess 7 H O2 Saturation 99 O2 % 100 ABG pCO2 54.3 H ABG pO2 127 H Kali Test Positive O2 Delivery Device NRB Radiology Impression Chest X-Ray 02/02/23 20:10 IMPRESSION: There has been no change in the appearance of the chest since the prior study. Electronically Signed: Yury Sarmiento MD at 20:24 EDT , Assessment & Plan Assessment/Plan (1) Dyspnea: (2) Hypoxemia: (3) Fluid overload: (4) Pulmonary edema: PLAN: Plan Dyspnea/hypoxia/fluid overload/pulm edema Etiology is unclear at this time We will check procalcitonin, low specificity in the setting of end-stage renal disease. We will check strep pneumoniae antigen and Legionella urine antigen. Of note patient has no white counts. She has no fever. She reported feeling chilly in her ED room on presentation. Started on Levaquin on first visit on the day of presentation to the ED. Ce ftriaxone and azithromycin ordered for inpatient. Patient is a dialysis patient but reports that she makes urine. BNP on presentation was 2270.7 Will give 40 mg of IV Lasix. Review of labs showed normal liver panel on 11/22/2022. Tessalon Perles ordered. Fluid restriction. Cardiac diet ordered. Last echocardiogram on file was on 10/18/2022. Echocardiogram showed stage II diastolic function Hypertensive emergency/flash pulm edema Highest systolic pressure of 220 on presentation. Home blood pressure medication resumed. As needed hydralazine ordered. Trend blood pressure and adjust blood pressure medications. Elevated troponin Review of chart showed that on the first patient's visit had a high sensitive troponin was elevated at 190. Repeat was 251. Review of the ED physician note shows that per conversation cardiology cardiology did not want any further troponins. Admitted to PCU on telemetry. Acute on chronic anemia Hemoglobin on presentation was 7.4. Baseline hemoglobin is about 8.5-9. We will check ferritin, iron studies, vitamin B12, folic acid and reticulocytes. End-stage renal disease on dialysis Get dialysis Friday, Tuesdays, Wednesdays and Fridays. Nephrology consult DVT prophylaxis: With acute on chronic anemia chemical thromboprophylaxis not ordered. SCDs ordered. Charges/Coding Visit Charges Inpatient E&M: 57901 Init Hosp L3
[2023-02-03] VITALS (11 sets, daily range): BP systolic 138–163; BP diastolic 44–58; PULSE 51–60; RESP 16–18; TEMP 36.6–37; O2SAT 92–97; BMI 25.7
[2023-02-03] MEDS: Ceftriaxone 1 GM/50 ML BAG IV ×2 (01:03→21:50)
[2023-02-03] MEDS: 0.9% Saline Lock 10 ML Syringe IV ×2 (01:07→21:50)
[2023-02-03] MEDS: Furosemide 40 MG/4 ML Vial IV (01:07)
[2023-02-03] MEDS: Carvedilol 6.25 MG Tablet PO ×3 (01:23→18:06)
[2023-02-03] MEDS: Atorvastatin Calcium 20 MG Tablet PO ×2 (01:24→22:11)
[2023-02-03] MEDS: Calcium Acetate 667 MG Capsule PO ×3 (01:24→18:07)
[2023-02-03] MEDS: Acetaminophen 325 MG Tablet 650 MG PO ×4 (03:30→18:10)
[2023-02-03] MEDS: hydrALAZINE 50 MG Tablet 100 MG PO ×3 (05:29→22:11)
[2023-02-03] MEDS: Levothyroxine 100 MCG Tablet 200 MCG PO (05:29)
[2023-02-03 06:44] LABS: Absolute Lymphocyte Count 0.31 X10^3/uL (0.83-4.51); Absolute Neutrophil Count 4.7 X10^3/uL (2.0-7.7); Basophil# 0.02 X10^3/uL; Basophil% 0.4 % (0-1); Eosinophil# 0.03 X10^3/uL; Eosinophils% 0.5 % (0-5); Hemoglobin 7.1 g/dL (12.0-15.0); Lymphocyte # 0.31 X10^3/ul (0.83-4.51); Lymphocyte % 5.6 % (19-41); Mean Corp Hgb Conc 30.9 g/dL (32-36); Mean Corpuscular Volume 113.3 fL (81-99); Monocyte# 0.42 X10^3/uL; Monocyte% 7.6 % (0-10); NRBC Flagged by Analyzer 0 % (0-5); Neutrophil % 85.4 % (47-70); POSITIVE DIFFERENTIAL YES; Platelet Count 113 K/mm3 (150-450); RBC Distribution Width CV 13.7 % (11.6-14.6); RBC Distribution Width SD 57.7 fl (35.1-43.9); RET-HE 35.9 pg (30-35); Red Blood Count 2.03 M/mm3 (4.2-5.4); Reticulocyte Count 2.85 % (0.5-1.5); White Blood Count 5.5 K/mm3 (4.4-11.0)
[2023-02-03 06:51] LABS: Differential Indicated SCAN CRITERIA MET
[2023-02-03 07:15] LABS: Macrocytosis 2+; Platelet Estimate SLT DEC (ADEQ)
[2023-02-03 07:48] LABS: AST(SGOT) 25 U/L (15-37); Alanine Aminotransfer ALT/SGPT 18 U/L (13-56); Alkaline Phosphatase 92 U/L (45-117); Anion Gap 8 (5-15); BUN 89 mg/dL (7-18); Calcium,Total 8.9 mg/dL (8.5-10.1); Chloride 99 mmol/L (98-107); Creatinine, Serum 7.41 mg/dL (0.55-1.02); EST Glomerular Filtration Rate 6 mL/min (>60); Est Glom Filt Rate - Afr Amer 7 mL/min (>60); Ferritin 1080 ng/mL (8-252); Glucose 100 mg/dL (74-106); Iron 31 ug/dL (50-170); Iron Binding Capacity,Total 278 ug/dL (250-450); PERCENT IRON SATURATION 11.2 % (15.0-55.0); Potassium 4.5 mmol/L (3.5-5.1); Sodium Level 135 mmol/L (136-145)
[2023-02-03 08:29] LABS: Vitamin B12 601 pg/mL (211-911)
--- NOTE | 2023-02-03 08:40 | PCM.PN.HOSP ---
Reason for Visit Reason for Visit: Diagnoses Fluid overload, unspecified (02/02/23) Chronic pulmonary edema (02/02/23) Dyspnea, unspecified (02/02/23) Hypoxemia (02/02/23) Follow-up for possible pulmonary edema with acute on chronic shortness of breath Objective Data Objective Data Vital Signs: Vital Signs Temp Pulse Resp BP Pulse Ox O2 Del Method O2 Flow Rate 98.2 F 53 L 16 138/50 H 94 Nasal Cannula 4 02/03/23 05:26 02/03/23 05:29 02/03/23 05:26 02/03/23 05:26 02/03/23 05:26 02/03/23 05:26 02/03/23 05:26 FiO2 40 02/02/23 20:59 Oxygen Flow Rate (L/min) 4 Oxygen Delivery Method Nasal Cannula Weight: 122 lb 12.76 oz Body Mass Index (BMI) 25.7 Intake & Output: Intake and Output for Last 24 Hours 02/01/23 02/02/23 02/03/23 23:59 23:59 23:59 Intake Total 305 / 305 Output Total 250 / 250 Balance 55 / 55 Lab / Micro Data Result Diagrams: 02/03/23 05:37 02/03/23 05:37 Labs: Laboratory Results - last 24 hr 02/02/23 23:26: Procalcitonin 0.60 H 02/03/23 05:37: WBC 5.5, RBC 2.03 L, Hgb 7.1 L, Hct 23.0 L, MCV 113.3 H, MCH 35.0 H, MCHC 30.9 L, RDW Std Deviation 57.7 H, RDW Coeff of Sotero 13.7, Plt Count 113 L, MPV 12.0, Immature Gran % (Auto) 0.500, Neut % (Auto) 85.4 H, Lymph % (Auto) 5.6 L, Millard % (Auto) 7.6, Eos % (Auto) 0.5, Baso % (Auto) 0.4, Absolute Neuts (auto) 4.7, Absolute Lymphs (auto) 0.31 L, Nucleated RBC % 0, Platelet Estimate SLT DEC, Macrocytosis 2+, Retic Count 2.85 H, Immature Retic Fraction 27.10 H, Retic Hgb Equivalent 35.9 H 02/03/23 05:37: Sodium 135 L, Potassium 4.5, Chloride 99, Carbon Dioxide 28.0, Anion Gap 8, BUN 89 H, Creatinine 7.41 H*, Estim Creat Clear Calc 4.70, Est GFR (MDRD) Af Amer 7 L, Est GFR (MDRD) Non-Af 6 L, BUN/Creatinine Ratio 12.0, Glucose 100, Calcium 8.9, Iron 31 L, TIBC 278, Iron Saturation 11.2 L, Ferritin 1080 H, Total Bilirubin 0.40, AST 25, ALT 18, Alkaline Phosphatase 92, Troponin I High Sens Cancelled, Total Protein 6.0 L, Albumin 3.0 L, Globulin 3.0, Albumin/Globulin Ratio 1.0, Folate 8.30 02/03/23 05:37: Vitamin B12 601 Micro: Microbiology 02/03/23 05:20 Urine, Random Legionella Antigen - Final 02/03/23 05:20 Urine, Random Streptococcus pneumoniae Antigen (M - Final 02/03/23 05:10 Nasal Secretion SARS-CoV-2 & FLU Antigen (Rapid) - Final ABG Data ABG results: ABG 02/02/23 19:42 Specimen Type ART Sample Site R Radial pH 7.38 Bicarbonate Actual 32.3 H Total CO2 34 Base Excess 7 H O2 Saturation 99 O2 % 100 ABG pCO2 54.3 H ABG pO2 127 H Kali Test Positive O2 Delivery Device NRB Radiography Diagnostic Testing: Radiology Impression Chest X-Ray 02/02/23 20:10 IMPRESSION: There has been no change in the appearance of the chest since the prior study. Electronically Signed: Yury Sarmiento MD at 20:24 EDT Reading Location ID and State: [facility] / [place] , Service support , Physical Exam Narrative Patient does not remember any history is very difficult. She also changes her symptoms. She states she hurts all over. She denies chest pain or tightness but was reported and EMS note. She has mild shortness of breath but he states does not know. She states she had also had a fall about 1 week ago and hit her left side of forehead above eyebrow Physical exam: General: Alert, Oriented x3, Cooperative HEENT: Atraumatic, PERRLA, EOMI, Normocephalic Oral: Oral mucosa moist. No Gingival or Mucosal Lesions/ Ulcerations Neck: Supple, No JVD, Negative Carotid Bruits Lungs: Air entry diminished in bilateral lungs mainly in lung bases. Bibasilar crepitations. Cardiovascular: Regular rate, Regular Rhythm, Normal S1, Normal S2, Systolic murmur LLSB Abdomen: Bowel Sounds Present, Soft, Non Tender, Non-Distended : On hemodialysis. No renal angle tenderness. No suprapubic tenderness. Extremities: No edema, Capillary Refill Less than 3 Seconds Skin: Bruise over left side of forehead and left lower leg, patchy Musculoskeletal: No Tenderness to Palpation of Joints or Extremities ROM restricted. Muscle strength 4+/5 at bilateral knees and hip joints. Neurological: Cranial nerves II-XII grossly intact, DTR 2+/4 and Symmetrical, Neuro grossly intact Psych/Mental Status: Flat affect Assessment & Plan Assessment/Plan (1) Dyspnea: (2) Hypoxemia: (3) Fluid overload: (4) Pulmonary edema: PLAN: Plan This is a 87-year-old female admitted with shortness of breath, 1 to 2-month history of productive cough with thick clear sputum. No chest pain. Last consistent as patient herself denied chest pain but paramedics noticed its midsternal chest pain, neck pain and cramps all over. Acute on chronic shortness of breath, possible pulmonary edema/pulmonary hypertension or bilateral pneumonia: Chest x-ray today reviewed shows Bilateral infiltrate, right more than left. Right hilar fullness, middle and lower lung lewis and left upper patchy infiltrates, as compared to previous chest x-ray of 09/2022. Patient had levofloxacin in ED and started on ceftriaxone and azithromycin. BNP on presentation was 2270. Lasix 40 mg IV given. Echo in September 2022 suggestive of chronic HFpEF EF 55%, mild concentric LVH, stage II diastolic dysfunction, RVSP 79 mmHg consistent with severe pulmonary hypertension. 2+ eccentric MR and 1-2+ TR. Heart failure core measures including intake and output, fluid restriction less than 1500 mL, daily weight monitoring, kidney and electrolytes monitoring Review of labs showed normal liver panel on 11/22/2022. Tessalon Perles ordered. Cardiac diet ordered. Last echocardiogram on file was on 10/18/2022. Echocardiogram showed stage II diastolic function Hypertensive emergency/flash pulm edema Highest systolic pressure of 220 on presentation. Home blood pressure medication resumed. As needed hydralazine ordered. Last BP 162/44. Patient on hydralazine 100 mg 3 times daily and Imdur 60 mg daily. Carvedilol 6.25 mg twice daily. Amlodipine 10 mg daily. Monitor blood pressure and will add low-dose diuretic/HCTZ Elevated troponin most likely due to myocardial injury from pulmonary hypertension/pulmonary edema Review of chart showed that on the first patient's visit had a high sensitive troponin was elevated at 190. Repeat was 251. Review of the ED physician note shows that per conversation cardiology cardiology did not want any further troponins. Admitted to PCU on telemetry. Acute on chronic anemia Hemoglobin on presentation was 7.4. Baseline hemoglobin is about 8.5-9. Hemoglobin is stable. Reticulocyte count 2.85 with immature fraction 27.1. B12 normal. Ferritin 1080, iron saturation 11.2% low iron 31, TIBC 278 overall suggestive of anemia of chronic kidney disease. End-stage renal disease on dialysis Get dialysis Friday, Tuesdays, Wednesdays and Fridays. Nephrology consult DVT prophylaxis: With acute on chronic anemia chemical thromboprophylaxis not ordered. SCDs ordered. 02/02/23 23:26: Procalcitonin 0.60 H 02/03/23 05:37: WBC 5.5, RBC 2.03 L, Hgb 7.1 L, Hct 23.0 L, MCV 113.3 H, MCH 35.0 H, MCHC 30.9 L, RDW Std Deviation 57.7 H, RDW Coeff of Sotero 13.7, Plt Count 113 L, MPV 12.0, Immature Gran % (Auto) 0.500, Neut % (Auto) 85.4 H, Lymph % (Auto) 5.6 L, Millard % (Auto) 7.6, Eos % (Auto) 0.5, Baso % (Auto) 0.4, Absolute Neuts (auto) 4.7, Absolute Lymphs (auto) 0.31 L, Nucleated RBC % 0, Platelet Estimate SLT DEC, Macrocytosis 2+, Retic Count 2.85 H, Immature Retic Fraction 27.10 H, Retic Hgb Equivalent 35.9 H 02/03/23 05:37: Sodium 135 L, Potassium 4.5, Chloride 99, Carbon Dioxide 28.0, Anion Gap 8, BUN 89 H, Creatinine 7.41 H*, Estim Creat Clear Calc 4.70, Est GFR (MDRD) Af Amer 7 L, Est GFR (MDRD) Non-Af 6 L, BUN/Creatinine Ratio 12.0, Glucose 100, Calcium 8.9, Iron 31 L, TIBC 278, Iron Saturation 11.2 L, Ferritin 1080 H, Total Bilirubin 0.40, AST 25, ALT 18, Alkaline Phosphatase 92, Troponin I High Sens Cancelled, Total Protein 6.0 L, Albumin 3.0 L, Globulin 3.0, Albumin/Globulin Ratio 1.0, Folate 8.30 02/03/23 05:37: Vitamin B12 601 2D echo on 10/18/2022 Left ventricular systolic function is normal. The estimated ejection fraction is 55 %. Mild concentric left ventricular hypertrophy. The left atrium is moderately enlarged. There is moderate to severe mitral annular calcification. Extension of the mitral annular calcification onto the base of the posterior mitral valve leaflet. Moderate (2+) eccentric mitral valve insufficiency. Mild to moderate (1-2+) eccentric tricuspid valve insufficiency. Mild diffuse aortic valve thickening. Mild focal aortic valve calcification. Trivial pulmonic valve insufficiency. Calcified aortic root. Right ventricular systolic pressure estimated to be 79 mmHg. Severe pulmonary hypertension. Stage 2 diastolic dysfunction. Charges/Coding Visit Charges Inpatient E&M: 28199 Subs Hosp L2
[2023-02-03] MEDS: Aspirin E.C. 81 MG Tablet PO (09:17)
[2023-02-03] MEDS: Clopidogrel Bisulfate 75 MG Tablet PO (09:17)
[2023-02-03] MEDS: Senna Tablet 1 TABLET PO (09:18)
[2023-02-03] MEDS: Isosorbide Mononitrate 60 MG Tablet PO (09:18)
[2023-02-03] MEDS: amLODIPine 10 MG Tablet PO (09:19)
[2023-02-03] MEDS: Donepezil HCl 10 MG Tablet PO (09:19)
--- NOTE | 2023-02-03 10:01 | CASEMGMT ---
Update sent to [facility]. Precert not needed.
--- NOTE | 2023-02-03 13:04 | PCM.CONS.R ---
Assessment & Plan Assessment/Plan (1) End-stage renal disease (ESRD): (2) Dyspnea: (3) Anemia in chronic kidney disease: PLAN: Plan We will continue to provide dialysis for Ms. Vargas. We will plan for dialysis today over 3.5 hours and attempt fluid removal ~2-3L as patient/blood pressure tolerates. We will attempt to challenge and possibly lower dry weight if able. Reviewed chest x-ray, reviewed as bilateral infiltrate right greater than left. Patient is on IV antibiotics. Patient currently dialyzes 4 times weekly at the residential but while in the hospital we will plan for dialysis Friday schedule unless acute need arises. Current blood pressure is acceptable and expect blood pressure to improve with fluid removal. Patient has a history of anemia of chronic disease and receives HARVINDER and Iron with dialysis. If hemoglobin drops below 7 would recommend blood transfusion. Patient has a history of secondary hyperparathyroidism and hyperphosphatemia and is on binders. Will monitor phosphorus levels periodically. Further orders forthcoming as hospitalization evolves, thank you for allowing us participate in the care of Ms. Vargas. HPI Consult Data Date of Consult: 02/03/23 HPI Narrative HPI Narrative: PRASANNA VARGAS, is a 87 F with past medical history significant for end-stage renal disease on hemodialysis at [facility] on a Friday, Friday, Friday, Friday schedule, history of anemia of chronic disease, hypertension hypothyroidism who presented to emergency room with complaints of productive cough and shortness of breath. Patient was admitted for further evaluation and treatment. We were consulted for hemodialysis needs. Patient last dialyzed on Friday at the residential. She is followed by Dr. Reaves. Patient denies any recent issues with dialysis, denies any cramping. Denies any recent nausea, vomiting or diarrhea. 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 Carotid disease, bilateral Dementia DVT (deep venous thrombosis) End stage renal disease History of left heart catheterization (LHC) (~10/18/22) Hypertension Hypothyroidism IBS (irritable bowel syndrome) Non-ST elevation VT (NSTEMI) TIA (transient ischemic attack) Home Medications aspirin 81 mg tablet,delayed release 81 mg PO DAILY clot prevention 10/18/22 [History Last Taken 02/01/23] calcium acetate(phosphat bind) 667 mg tablet 667 mg PO TID Binder 10/18/22 [History Last Taken 02/01/23] carvedilol 6.25 mg tablet 6.25 mg PO BID heart 10/18/22 [History Last Taken 02/01/23] levothyroxine 100 mcg tablet 100 mcg PO SUSA thyroid 10/18/22 [History Last Taken 02/02/23] levothyroxine 200 mcg tablet 200 mcg PO MOTUWEFR hypothyroidism 10/18/22 [History Last Taken 01/31/23] clopidogrel 75 mg tablet 75 mg PO DAILY #0 tabs 10/19/22 [Rx Last Taken 02/01/23] nitroglycerin 0.4 mg sublingual tablet 0.4 mg sublingual Q5M PRN CHEST PAIN #0 tabs 10/19/22 [Rx Last Taken 02/02/23] isosorbide mononitrate 60 mg tablet,extended release 24 hr 60 mg PO DAILY #90 tabs 11/11/22 [Rx Last Taken 02/01/23] acetaminophen 325 mg tablet 650 mg PO DAILY headache 02/02/23 [History Last Taken 02/01/23] amlodipine 10 mg tablet 10 mg PO DAILY HTN 02/02/23 [History Last Taken 02/01/23] atorvastatin 20 mg tablet 20 mg PO QHS HLD 02/02/23 [History Last Taken 02/01/23] donepezil 10 mg tablet 10 mg PO DAILY VASCULAR DEMENTIA 02/02/23 [History Last Taken 02/01/23] famotidine 20 mg tablet 20 mg PO QHS IBS 02/02/23 [History Last Taken 02/01/23] hydralazine 100 mg tablet 100 mg PO TID KIDNEY DISEASE 02/02/23 [History Last Taken 02/02/23] levofloxacin 500 mg tablet 500 mg PO DAILY #7 tabs 02/02/23 [Rx Last Taken Unknown] loperamide 2 mg tablet 2 mg PO BID PRN Loose Stool 02/02/23 [History Last Taken 02/02/23] ondansetron HCl 4 mg tablet 4 mg PO DAILY IBS 02/02/23 [History Last Taken 01/27/23] sennosides 8.6 mg tablet (senna) 8.6 mg PO DAILY CONSTIPATION 02/02/23 [History Last Taken 02/01/23] Allergy/AdvReac Type Severity Reaction Status Date / Time codeine Allergy Hives Verified 02/02/23 19:10 morphine Allergy Hives Verified 02/02/23 19:10 oxycodone Allergy Hives Verified 02/02/23 19:10 propoxyphene Allergy NEEDS Verified 02/02/23 19:10 FOLLOW-UP tramadol Allergy NEEDS Verified 02/02/23 19:10 FOLLOW-UP Family History Mother Diabetes Father Diabetes Surgical History H/O coronary angioplasty History of back surgery History of total left knee replacement S/p bilateral carotid endarterectomy S/P PTCA (percutaneous transluminal coronary angioplasty) Social History household members: none housing: residential Smoking Status: Never smoker alcohol intake: never substance use type: does not use ROS ROS Narrative As in HPI Physical Exam Narrative Alert and oriented x3, no apparent distress S1, S2, RRR Lung sounds clear anteriorly, diminished breath sounds bilateral posterior bases Abdomen soft, nontender, positive bowel sounds No edema noted bilateral lower legs or feet. Left upper arm AV fistula positive thrill and bruit Lab / Micro Data Result Diagrams: 02/03/23 05:37 02/03/23 05:37 Labs: Laboratory Results - last 24 hr 02/02/23 23:26: Procalcitonin 0.60 H 02/03/23 05:37: WBC 5.5, RBC 2.03 L, Hgb 7.1 L, Hct 23.0 L, MCV 113.3 H, MCH 35.0 H, MCHC 30.9 L, RDW Std Deviation 57.7 H, RDW Coeff of Sotero 13.7, Plt Count 113 L, MPV 12.0, Immature Gran % (Auto) 0.500, Neut % (Auto) 85.4 H, Lymph % (Auto) 5.6 L, [place] % (Auto) 7.6, Eos % (Auto) 0.5, Baso % (Auto) 0.4, Absolute Neuts (auto) 4.7, Absolute Lymphs (auto) 0.31 L, Nucleated RBC % 0, Platelet Estimate SLT DEC, Macrocytosis 2+, Retic Count 2.85 H, Immature Retic Fraction 27.10 H, Retic Hgb Equivalent 35.9 H 02/03/23 05:37: Sodium 135 L, Potassium 4.5, Chloride 99, Carbon Dioxide 28.0, Anion Gap 8, BUN 89 H, Creatinine 7.41 H*, Estim Creat Clear Calc 4.70, Est GFR (MDRD) Af Amer 7 L, Est GFR (MDRD) Non-Af 6 L, BUN/Creatinine Ratio 12.0, Glucose 100, Calcium 8.9, Iron 31 L, TIBC 278, Iron Saturation 11.2 L, Ferritin 1080 H, Total Bilirubin 0.40, AST 25, ALT 18, Alkaline Phosphatase 92, Troponin I High Sens Cancelled, Total Protein 6.0 L, Albumin 3.0 L, Globulin 3.0, Albumin/Globulin Ratio 1.0, Folate 8.30 02/03/23 05:37: Vitamin B12 601 Micro: Microbiology 02/03/23 05:20 Urine, Random Legionella Antigen - Final 02/03/23 05:20 Urine, Random Streptococcus pneumoniae Antigen (M - Final 02/03/23 05:10 Nasal Secretion SARS-CoV-2 & FLU Antigen (Rapid) - Final ABG Data ABG results: ABG 02/02/23 19:42 Specimen Type ART Sample Site R Radial pH 7.38 Bicarbonate Actual 32.3 H Total CO2 34 Base Excess 7 H O2 Saturation 99 O2 % 100 ABG pCO2 54.3 H ABG pO2 127 H Kali Test Positive O2 Delivery Device NRB Radiology Impression Chest X-Ray 02/02/23 20:10 IMPRESSION: There has been no change in the appearance of the chest since the prior study. Electronically Signed: Yury Sarmiento MD at 20:24 EDT ,
--- NOTE | 2023-02-03 14:27 | CASEMGMT ---
JOSE called patient's friend Anusha and confirmed the plan is to return to [facility] at discharge. Lizet Carlos PRE CODER RANDOLPH
--- NOTE | 2023-02-03 16:09 | CHAPLAIN ---
Type of Pastoral Visit _x__ Initial Visit ___ Follow-up Visit ___ On-call Visit ___ General Patient Visit ___ Spiritual Assessment ___ Family Conference ___ Bereavement ___ Rapid Response ___ Code Blue ___ Other (describe below) Pastoral Care Referral From _x__ Patient ___ Family ___ Nurse ___ Physician ___ Creative Project Manager ___ Needlemaker ___ Other (describe below) Sacrament/Intervention _x__ Active listening ___ Anointing ___ Confucianist ___ Bereavement ___ Communion ___ Mary exploration ___ _x__ Life review ___ Prayer ___ Reconciliation ___ Sacrament of Sick _x__ Supportive presence ___ Wedding ___ Other (describe below) Pastoral Comments this patient has been seen before in previous admission; pt repeats some of her same life stories; pt has disappointment in family relationships but leans on a friend; pt is pleasant and is talkative; pt is having dialysis connection at this time; offer of support and presence given; pt does not seek further help at this time
[2023-02-03] MEDS: Pantoprazole Sodium 40 MG Tablet PO (18:06)
[2023-02-04] VITALS (8 sets, daily range): BP systolic 152–166; BP diastolic 45–71; PULSE 57–59; RESP 14–18; TEMP 36.8–37.4; O2SAT 94–96; BMI 25.5
[2023-02-04] MEDS: hydrALAZINE 50 MG Tablet 100 MG PO (05:06)
[2023-02-04] MEDS: Levothyroxine 100 MCG Tablet 200 MCG PO (05:06)
[2023-02-04 05:28] LABS: Absolute Lymphocyte Count 0.39 X10^3/uL (0.83-4.51); Absolute Neutrophil Count 5.9 X10^3/uL (2.0-7.7); Basophil# 0.02 X10^3/uL; Basophil% 0.3 % (0-1); Eosinophil# 0.06 X10^3/uL; Eosinophils% 0.9 % (0-5); Hematocrit 24.8 % (37-47); Hemoglobin 7.6 g/dL (12.0-15.0); Lymphocyte # 0.39 X10^3/ul (0.83-4.51); Lymphocyte % 5.6 % (19-41); Mean Corp Hgb Conc 30.6 g/dL (32-36); Mean Corpuscular Hgb 34.7 pg (27.0-32.0); Mean Corpuscular Volume 113.2 fL (81-99); Mean Platelet Vol. 11.6 fl (6.2-12.0); Monocyte# 0.57 X10^3/uL; Monocyte% 8.2 % (0-10); NRBC Flagged by Analyzer 0 % (0-5); Neutrophil # 5.89 X10^3/uL (2.7-7.7); Neutrophil % 84.6 % (47-70); POSITIVE DIFFERENTIAL YES; Platelet Count 134 K/mm3 (150-450); RBC Distribution Width CV 13.8 % (11.6-14.6); RBC Distribution Width SD 56.6 fl (35.1-43.9); Red Blood Count 2.19 M/mm3 (4.2-5.4)
[2023-02-04 05:36] LABS: Differential Indicated SCAN CRITERIA MET
[2023-02-04 05:56] LABS: Anion Gap 5 (5-15); BUN 40 mg/dL (7-18); BUN/Creat Ratio 8.8 RATIO (10-20); Calcium,Total 8.8 mg/dL (8.5-10.1); Chloride 100 mmol/L (98-107); Creatinine, Serum 4.53 mg/dL (0.55-1.02); EST Glomerular Filtration Rate 10 mL/min (>60); Est Glom Filt Rate - Afr Amer 12 mL/min (>60); Estimated Creatinine Clearance 7.65 ml/min; Glucose 108 mg/dL (74-106); Potassium 4.3 mmol/L (3.5-5.1); Sodium Level 134 mmol/L (136-145)
[2023-02-04 06:08] LABS: Macrocytosis 2+; Platelet Estimate SLT DEC (ADEQ)
--- NOTE | 2023-02-04 08:44 | PN.HOSP_ITS ---
Reason for Visit Reason for Visit: Diagnoses Fluid overload, unspecified (02/02/23) Chronic pulmonary edema (02/02/23) Dyspnea, unspecified (02/02/23) Hypoxemia (02/02/23) Objective Data Objective Data Vital Signs: Vital Signs Temp Pulse Resp BP Pulse Ox O2 Del Method O2 Flow Rate 98.5 F 57 L 18 166/71 H 96 Nasal Cannula 4 02/04/23 05:01 02/04/23 05:06 02/04/23 05:01 02/04/23 05:06 02/04/23 07:30 02/04/23 08:10 02/04/23 08:10 FiO2 40 02/02/23 20:59 Oxygen Flow Rate (L/min) 4 Oxygen Delivery Method Nasal Cannula Weight: 122 lb 2.177 oz Body Mass Index (BMI) 25.5 Intake & Output: Intake and Output for Last 24 Hours 02/02/23 02/03/23 02/04/23 23:59 23:59 23:59 Intake Total 1198.75 / 1248.75 305 / 305 Output Total 2450 / 2450 Balance -1251.25 / -1201.25 305 / 305 Lab / Micro Data Result Diagrams: 02/04/23 05:22 02/04/23 05:22 Labs: Laboratory Results - last 24 hr 02/04/23 05:22: WBC 7.0, RBC 2.19 L, Hgb 7.6 L, Hct 24.8 L, MCV 113.2 H, MCH 34.7 H, MCHC 30.6 L, RDW Std Deviation 56.6 H, RDW Coeff of Sotero 13.8, Plt Count 134 L, MPV 11.6, Immature Gran % (Auto) 0.400, Neut % (Auto) 84.6 H, Lymph % (Auto) 5.6 L, [place] % (Auto) 8.2, Eos % (Auto) 0.9, Baso % (Auto) 0.3, Absolute Neuts (auto) 5.9, Absolute Lymphs (auto) 0.39 L, Nucleated RBC % 0, Platelet Estimate SLT DEC, Macrocytosis 2+ 02/04/23 05:22: Sodium 134 L, Potassium 4.3, Chloride 100, Carbon Dioxide 29.0, Anion Gap 5, BUN 40 H, Creatinine 4.53 H, Estim Creat Clear Calc 7.65, Est GFR (MDRD) Af Amer 12 L, Est GFR (MDRD) Non-Af 10 L, BUN/Creatinine Ratio 8.8 L, Glucose 108 H, Calcium 8.8 Micro: Microbiology 02/03/23 05:20 Urine, Random Legionella Antigen - Final 02/03/23 05:20 Urine, Random Streptococcus pneumoniae Antigen (M - Final 02/03/23 05:10 Nasal Secretion SARS-CoV-2 & FLU Antigen (Rapid) - Final Physical Exam Narrative Patient does not remember any history is very difficult. She also changes her symptoms. She states she hurts all over. She denies chest pain or tightness but was reported and EMS note. She has mild shortness of breath but he states does not know. She states she had also had a fall about 1 week ago and hit her left side of forehead above eyebrow Physical exam: General: Alert, Oriented x3, Cooperative HEENT: Atraumatic, PERRLA, EOMI, Normocephalic Oral: Oral mucosa moist. No Gingival or Mucosal Lesions/ Ulcerations Neck: Supple, No JVD, Negative Carotid Bruits Lungs: Air entry diminished in bilateral lungs mainly in lung bases. Bibasilar crepitations. Cardiovascular: Regular rate, Regular Rhythm, Normal S1, Normal S2, Systolic murmur LLSB Abdomen: Bowel Sounds Present, Soft, Non Tender, Non-Distended : On hemodialysis. No renal angle tenderness. No suprapubic tenderness. Extremities: No edema, Capillary Refill Less than 3 Seconds Skin: Bruise over left side of forehead and left lower leg, patchy Musculoskeletal: No Tenderness to Palpation of Joints or Extremities ROM restricted. Muscle strength 4+/5 at bilateral knees and hip joints. Neurological: Cranial nerves II-XII grossly intact, DTR 2+/4 and Symmetrical, Neuro grossly intact Psych/Mental Status: Flat affect Assessment & Plan Assessment/Plan (1) Dyspnea: (2) Hypoxemia: (3) Fluid overload: (4) Pulmonary edema: PLAN: Plan This is a 87-year-old female admitted with shortness of breath, 1 to 2-month history of productive cough with thick clear sputum. No chest pain. Last cons istent as patient herself denied chest pain but paramedics noticed its midsternal chest pain, neck pain and cramps all over. Acute on chronic shortness of breath, possible pulmonary edema/pulmonary hypertension or bilateral pneumonia: Chest x-ray today reviewed shows Bilateral infiltrate, right more than left. Right hilar fullness, middle and lower lung lewis and left upper patchy infiltrates, as compared to previous chest x-ray of 09/2022. Patient had levofloxacin in ED and started on ceftriaxone and azithromycin. BNP on presentation was 2270. Lasix 40 mg IV given. Echo in September 2022 suggestive of chronic HFpEF EF 55%, mild concentric LVH, stage II diastolic dysfunction, RVSP 79 mmHg consistent with severe pulmonary hypertension. 2+ eccentric MR and 1-2+ TR. Heart failure core measures including intake and output, fluid restriction less than 1500 mL, daily weight monitoring, kidney and electrolytes monitoring Review of labs showed normal liver panel on 11/22/2022. Tessalon Perles ordered. Cardiac diet ordered. Last echocardiogram on file was on 10/18/2022. Echocardiogram showed stage II diastolic function Hypertensive emergency/flash pulm edema Highest systolic pressure of 220 on presentation. Home blood pressure medication resumed. As needed hydralazine ordered. Last BP 162/44. Patient on hydralazine 100 mg 3 times daily and Imdur 60 mg daily. Carvedilol 6.25 mg twice daily. Amlodipine 10 mg daily. Monitor blood pressure and will add low-dose diuretic/HCTZ Elevated troponin most likely due to myocardial injury from pulmonary hypertension/pulmonary edema Review of chart showed that on the first patient's visit had a high sensitive troponin was elevated at 190. Repeat was 251. Review of the ED physician note shows that per conversation cardiology cardiology did not want any further troponins. Admitted to PCU on telemetry. Acute on chronic anemia Hemoglobin on presentation was 7.4. Baseline hemoglobin is about 8.5-9. Hemoglobin is stable. Reticulocyte count 2.85 with immature fraction 27.1. B12 normal. Ferritin 1080, iron saturation 11.2% low iron 31, TIBC 278 overall suggestive of anemia of chronic kidney disease. End-stage renal disease on dialysis Get dialysis Friday, Tuesdays, Wednesdays and Fridays. Nephrology consult DVT prophylaxis: With acute on chronic anemia chemical thromboprophylaxis not ordered. SCDs ordered. 02/02/23 23:26: Procalcitonin 0.60 H 02/03/23 05:37: WBC 5.5, RBC 2.03 L, Hgb 7.1 L, Hct 23.0 L, MCV 113.3 H, MCH 35.0 H, MCHC 30.9 L, RDW Std Deviation 57.7 H, RDW Coeff of Sotero 13.7, Plt Count 113 L, MPV 12.0, Immature Gran % (Auto) 0.500, Neut % (Auto) 85.4 H, Lymph % (Auto) 5.6 L, [place] % (Auto) 7.6, Eos % (Auto) 0.5, Baso % (Auto) 0.4, Absolute Neuts (auto) 4.7, Absolute Lymphs (auto) 0.31 L, Nucleated RBC % 0, Platelet Estimate SLT DEC, Macrocytosis 2+, Retic Count 2.85 H, Immature Retic Fraction 27.10 H, Retic Hgb Equivalent 35.9 H 02/03/23 05:37: Sodium 135 L, Potassium 4.5, Chloride 99, Carbon Dioxide 28.0, Anion Gap 8, BUN 89 H, Creatinine 7.41 H*, Estim Creat Clear Calc 4.70, Est GFR (MDRD) Af Amer 7 L, Est GFR (MDRD) Non-Af 6 L, BUN/Creatinine Ratio 12.0, Glucose 100, Calcium 8.9, Iron 31 L, TIBC 278, Iron Saturation 11.2 L, Ferritin 1080 H, Total Bilirubin 0.40, AST 25, ALT 18, Alkaline Phosphatase 92, Troponin I High Sens Cancelled, Total Protein 6.0 L, Albumin 3.0 L, Globulin 3.0, Albumin/Globulin Ratio 1.0, Folate 8.30 02/03/23 05:37: Vitamin B12 601 2D echo on 10/18/2022 Left ventricular systolic function is normal. The estimated ejection fraction is 55 %. Mild concentric left ventricular hypertrophy. The left atrium is moderately enlarged. There is moderate to severe mitral annular calcification. Extension of the mitral annular calcification onto the base of the posterior mitral valve leaflet. Moderate (2+) eccentric mitral valve insufficiency. Mild to moderate (1-2+) eccentric tricuspid valve insufficiency. Mild diffuse aortic valve thickening. Mild focal aortic valve calcification. Trivial pulmonic valve insufficiency. Calcified aortic root. Right ventricular systolic pressure estimated to be 79 mmHg. Severe pulmonary hypertension. Stage 2 diastolic dysfunction.
[2023-02-04] MEDS: Carvedilol 6.25 MG Tablet PO (08:46)
[2023-02-04] MEDS: Isosorbide Mononitrate 60 MG Tablet PO (08:46)
[2023-02-04] MEDS: Clopidogrel Bisulfate 75 MG Tablet PO (08:46)
[2023-02-04] MEDS: Pantoprazole Sodium 40 MG Tablet PO (08:47)
[2023-02-04] MEDS: amLODIPine 10 MG Tablet PO (08:47)
[2023-02-04] MEDS: Calcium Acetate 667 MG Capsule PO (08:47)
[2023-02-04] MEDS: Senna Tablet 1 TABLET PO (08:47)
[2023-02-04] MEDS: Aspirin E.C. 81 MG Tablet PO (08:47)
[2023-02-04] MEDS: Donepezil HCl 10 MG Tablet PO (08:47)
--- NOTE | 2023-02-04 09:54 | TREXTCAR_ITS ---
Diet Diet Order/Speech Therapy: 02/03/23 15:20 Diet: Renal - General Food consistency:: Regular Liquid Consistency:: Regular/Thin Dietary Modifications:: Sodium Restricted Type of Dietary Supplement:: Nepro Fluid restriction:: 1500 mL Diet Comments: 120ml PO Nepro BID w/ lunch and dinner Routine Orders/Code Status Suppository Type: Dulcolax 10mg Suppository Frequency: Daily PRN Problem/Diagnosis (1) Dyspnea: Status: Acute Code(s): R06.00 - Dyspnea, unspecified (2) Hypoxemia: Status: Acute Code(s): R09.02 - Hypoxemia (3) Fluid overload: Status: Acute Code(s): E87.70 - Fluid overload, unspecified (4) Pulmonary edema: Status: Acute Code(s): J81.1 - Chronic pulmonary edema Plan This is a 87-year-old female admitted with shortness of breath, 1 to 2-month history of productive cough with thick clear sputum. No chest pain. Last consistent as patient herself denied chest pain but paramedics noticed its midsternal chest pain, neck pain and cramps all over. Acute on chronic shortness of breath, possible pulmonary edema/pulmonary hypertension or bilateral pneumonia: Chest x-ray today reviewed shows Bilateral infiltrate, right more than left. Right hilar fullness, middle and lower lung lewis and left upper patchy infiltrates, as compared to previous chest x-ray of 09/2022. Patient had levofloxacin in ED and started on ceftriaxone and azithromycin. BNP on presentation was 2270. Lasix 40 mg IV given. Echo in September 2022 suggestive of chronic HFpEF EF 55%, mild concentric LVH, stage II diastolic dysfunction, RVSP 79 mmHg consistent with severe pulmonary hypertension. 2+ eccentric MR and 1-2+ TR. Heart failure core measures including intake and output, fluid restriction less than 1500 mL, daily weight monitoring, kidney and electrolytes monitoring Review of labs showed normal liver panel on 11/22/2022. Tessalon Perles ordered. Cardiac diet ordered. Last echocardiogram on file was on 10/18/2022. Echocardiogram showed stage II diastolic function Hypertensive emergency/flash pulm edema Highest systolic pressure of 220 on presentation. Home blood pressure medication resumed. As needed hydralazine ordered. Last BP 162/44. Patient on hydralazine 100 mg 3 times daily and Imdur 60 mg daily. Carvedilol 6.25 mg twice daily. Amlodipine 10 mg daily. Monitor blood pressure and will add low-dose diuretic/HCTZ Elevated troponin most likely due to myocardial injury from pulmonary hyperten jesús/pulmonary edema Review of chart showed that on the first patient's visit had a high sensitive troponin was elevated at 190. Repeat was 251. Review of the ED physician note shows that per conversation cardiology cardiology did not want any further troponins. Admitted to PCU on telemetry. Acute on chronic anemia Hemoglobin on presentation was 7.4. Baseline hemoglobin is about 8.5-9. Hemogl obin is stable. Reticulocyte count 2.85 with immature fraction 27.1. B12 normal. Ferritin 1080, iron saturation 11.2% low iron 31, TIBC 278 overall suggestive of anemia of chronic kidney disease. End-stage renal disease on dialysis Get dialysis Friday, Tuesdays, Wednesdays and Fridays. Nephrology consult DVT prophylaxis: With acute on chronic anemia chemical thromboprophylaxis not ordered. SCDs ordered. 02/02/23 23:26: Procalcitonin 0.60 H 02/03/23 05:37: WBC 5.5, RBC 2.03 L, Hgb 7.1 L, Hct 23.0 L, MCV 113.3 H, MCH 35.0 H, MCHC 30.9 L, RDW Std Deviation 57.7 H, RDW Coeff of Sotero 13.7, Plt Count 113 L, MPV 12.0, Immature Gran % (Auto) 0.500, Neut % (Auto) 85.4 H, Lymph % (Auto) 5.6 L, [place] % (Auto) 7.6, Eos % (Auto) 0.5, Baso % (Auto) 0.4, Absolute Neuts (auto) 4.7, Absolute Lymphs (auto) 0.31 L, Nucleated RBC % 0, Platelet Estimate SLT DEC, Macrocytosis 2+, Retic Count 2.85 H, Immature Retic Fraction 27.10 H, Retic Hgb Equivalent 35.9 H 02/03/23 05:37: Sodium 135 L, Potassium 4.5, Chloride 99, Carbon Dioxide 28.0, Anion Gap 8, BUN 89 H, Creatinine 7.41 H*, Estim Creat Clear Calc 4.70, Est GFR (MDRD) Af Amer 7 L, Est GFR (MDRD) Non-Af 6 L, BUN/Creatinine Ratio 12.0, Glucose 100, Calcium 8.9, Iron 31 L, TIBC 278, Iron Saturation 11.2 L, Ferritin 1080 H, Total Bilirubin 0.40, AST 25, ALT 18, Alkaline Phosphatase 92, Troponin I High Sens Cancelled, Total Protein 6.0 L, Albumin 3.0 L, Globulin 3.0, Albumin/Globulin Ratio 1.0, Folate 8.30 02/03/23 05:37: Vitamin B12 601 2D echo on 10/18/2022 Left ventricular systolic function is normal. The estimated ejection fraction is 55 %. Mild concentric left ventricular hypertrophy. The left atrium is moderately enlarged. There is moderate to severe mitral annular calcification. Extension of the mitral annular calcification onto the base of the posterior mitral valve leaflet. Moderate (2+) eccentric mitral valve insufficiency. Mild to moderate (1-2+) eccentric tricuspid valve insufficiency. Mild diffuse aortic valve thickening. Mild focal aortic valve calcification. Trivial pulmonic valve insufficiency. Calcified aortic root. Right ventricular systolic pressure estimated to be 79 mmHg. Severe pulmonary hypertension. Stage 2 diastolic dysfunction. Allergies/Procedures Done in Hospital Allergies codeine Allergy (Verified 02/02/23 19:10) Hives morphine Allergy (Verified 02/02/23 19:10) Hives oxycodone Allergy (Verified 02/02/23 19:10) Hives propoxyphene Allergy (Verified 02/02/23 19:10) NEEDS FOLLOW-UP tramadol Allergy (Verified 02/02/23 19:10) NEEDS FOLLOW-UP Type of Care/Length of Stay Estimated LOS: Convalescent Care Less Than 30 days Type of Care Needed: Skilled Rehab Potential: Good Prognosis: Good Additional Orders/Day of Discharge Day of Discharge: 02/04/23 Dietary and Speech Recommendations Dietitian Recommendations/Changes: Will change diet to Renal general w/ 1500ml FR. Will add 120 ml Nepro BID w/ lunch and dinner. Liberalize diet as indicated if PO does not improve at meals. Discharge Plan Admission Admit Date/Time: 02/02/23 21:31 Primary Reason for Your Visit: pulmonary edema and pneumonia Attending Provider: Luis Carlos Baca Primary Care Provider: Cat Holman Consulting Providers: Nathan Hinojosa ; Elizabeth Reaves Instructions Additional Instructions / Restrictions: Advised take take furosemide on days, not on dialysis Discharge Orders/Prescriptions Prescriptions: New pantoprazole 40 mg Tablet,Delayed Release (Dr/Ec) 40 mg PO DAILY Qty: 0 0RF furosemide [Lasix] 40 mg tablet 40 mg PO QODAY Qty: 30 0RF Rx Instructions: Do not give Lasix on days of dialysis. Continued isosorbide mononitrate 60 mg tablet extended release 24 hr 60 mg PO DAILY Qty: 90 3RF carvedilol 6.25 mg tablet 6.25 mg PO BID calcium acetate(phosphat bind) 667 mg tablet 667 mg PO TID aspirin 81 mg tablet,delayed release (DR/EC) 81 mg PO DAILY Label Comments: TAKE 1 TABLET BY MOUTH EVERY DAY levothyroxine 100 mcg tablet 100 mcg PO SUSA levothyroxine 200 mcg tablet 200 mcg PO MOTUWEFR clopidogrel 75 mg Tablet 75 mg PO DAILY Qty: 0 0RF nitroglycerin 0.4 mg Tablet, Sublingual 0.4 mg sublingual Q5M PRN (Reason: CHEST PAIN) Qty: 0 0RF sennosides [senna] 8.6 mg Tablet 8.6 mg PO DAILY acetaminophen 325 mg Tablet 650 mg PO DAILY donepezil 10 mg tablet 10 mg PO DAILY ondansetron HCl 4 mg Tablet 4 mg PO DAILY hydralazine 100 mg tablet 100 mg PO TID atorvastatin 20 mg tablet 20 mg PO QHS amlodipine 10 mg tablet 10 mg PO DAILY levofloxacin 500 mg tablet 500 mg PO DAILY Qty: 7 0RF Discontinued loperamide 2 mg Tablet 2 mg PO BID PRN (Reason: Loose Stool) famotidine 20 mg tablet 20 mg PO QHS Referrals / Follow Up: Elizabeth Reaves MD [Med Staff - Consulting] - Within 1 Month Cat Holman MD [Primary Care Provider] - Within 1 Week Sae Bridges NP, [employer] [Med Staff - Adv Practice Prof] - Within 1 Month (Heart failure) Disposition Disposition (needs filled in before D/C Order can be placed): [facility]
[2023-02-04] MEDS: Acetaminophen 325 MG Tablet 650 MG PO (10:06)
--- NOTE | 2023-02-04 10:28 | PN.RENAL_ITS ---
Subjective Subjective Resting quietly in bed. No overnight events. No complaints Objective Data Objective Data Vital Signs: Vital Signs Temp Pulse Resp BP Pulse Ox O2 Del Method O2 Flow Rate 99.3 F H 59 L 14 152/47 H 94 Nasal Cannula 4 02/04/23 09:52 02/04/23 09:52 02/04/23 09:52 02/04/23 09:52 02/04/23 09:52 02/04/23 09:52 02/04/23 09:52 FiO2 40 02/02/23 20:59 Oxygen Flow Rate (L/min) 4 Oxygen Delivery Method Nasal Cannula Weight: 55.4 kg Body Mass Index (BMI) 25.5 Intake & Output: Intake and Output for Last 24 Hours 02/02/23 02/03/23 02/04/23 23:59 23:59 23:59 Intake Total 1198.75 / 1248.75 305 / 305 Output Total 2450 / 2450 Balance -1251.25 / -1201.25 305 / 305 Lab / Micro Data Result Diagrams: 02/04/23 05:22 02/04/23 05:22 Labs: Laboratory Results - last 24 hr 02/04/23 05:22: WBC 7.0, RBC 2.19 L, Hgb 7.6 L, Hct 24.8 L, MCV 113.2 H, MCH 34.7 H, MCHC 30.6 L, RDW Std Deviation 56.6 H, RDW Coeff of Sotero 13.8, Plt Count 134 L, MPV 11.6, Immature Gran % (Auto) 0.400, Neut % (Auto) 84.6 H, Lymph % (Auto) 5.6 L, [place] % (Auto) 8.2, Eos % (Auto) 0.9, Baso % (Auto) 0.3, Absolute Neuts (auto) 5.9, Absolute Lymphs (auto) 0.39 L, Nucleated RBC % 0, Platelet Estimate SLT DEC, Macrocytosis 2+ 02/04/23 05:22: Sodium 134 L, Potassium 4.3, Chloride 100, Carbon Dioxide 29.0, Anion Gap 5, BUN 40 H, Creatinine 4.53 H, Estim Creat Clear Calc 7.65, Est GFR (MDRD) Af Amer 12 L, Est GFR (MDRD) Non-Af 10 L, BUN/Creatinine Ratio 8.8 L, Glucose 108 H, Calcium 8.8 Micro: Microbiology 02/03/23 05:20 Urine, Random Legionella Antigen - Final 02/03/23 05:20 Urine, Random Streptococcus pneumoniae Antigen (M - Final 02/03/23 05:10 Nasal Secretion SARS-CoV-2 & FLU Antigen (Rapid) - Final Physical Exam Narrative Alert and oriented x3, no apparent distress S1, S2, RRR Lung sounds clear anteriorly, diminished breath sounds bilateral posterior bases Abdomen soft, nontender, positive bowel sounds No edema noted bilateral lower legs or feet. Left upper arm AV fistula positive thrill and bruit Assessment & Plan Assessment/Plan (1) End-stage renal disease (ESRD): (2) Dyspnea: (3) Anemia in chronic kidney disease: PLAN: Plan - ESRD; On dialysis at [facility] Friday, Friday, Friday and Friday schedule. Tolerated dialysis yesterday over 3.5 hours with 2 L fluid removal. 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 Possible discharge to [facility] today. If patient is not discharged we will arrange for dialysis tomorrow. We will attempt to challenge and possibly lower dry weight if able. Outpatient edw was 56.5kg. Weight today 55.4 kg. Reviewed chest x-ray, reviewed as bilateral infiltrate right greater than left. Patient is on IV antibiotics. - Hemoglobin is 7.6 today. Patient receives HARVINDER and iron with dialysis. -Blood pressures acceptable and tolerated fluid removal with dialysis yesterday. - discussed nephrology plan with Dr. Baca.
--- NOTE | 2023-02-04 11:46 | DS.PCM_ITS ---
Providers Date of Admission: 02/02/23 Date of Discharge: 02/04/23 Primary Care Physician: Dr. Cat Holman MD Consultations 02/02/23 23:03 Consult: Nephrology Routine Consulting Provider: Elizabeth Reaves Reason for Consult: ESRD on dialysis EMERGENT Consult: No MD Notified: Yes Date Notified: 02/03/23 Time Notified: 06:03 Method of Notification: Answering Service Reason For Visit: HYPOXIA,DYSPNEA, HYPERTENSIVE URGENCY Diagnosis Discharge Diagnosis (1) Dyspnea: Status: Acute Code(s): R06.00 - Dyspnea, unspecified (2) Hypoxemia: Status: Acute Code(s): R09.02 - Hypoxemia (3) Fluid overload: Status: Acute Code(s): E87.70 - Fluid overload, unspecified (4) Pulmonary edema: Status: Acute Code(s): J81.1 - Chronic pulmonary edema Plan This is a 87-year-old female admitted with shortness of breath, 1 to 2-month history of productive cough with thick clear sputum. No chest pain. Last consistent as patient herself denied chest pain but paramedics noticed its midsternal chest pain, neck pain and cramps all over. Acute on chronic shortness of breath, possible pulmonary edema/pulmonary hype rtension or bilateral pneumonia: Chest x-ray today reviewed shows Bilateral infiltrate, right more than left. Right hilar fullness, middle and lower lung lewis and left upper patchy infiltrates, as compared to previous chest x-ray of 09/2022. Patient had levofloxacin in ED and started on ceftriaxone and azithromycin. BNP on presentation was 2270. Lasix 40 mg IV given. Echo in September 2022 martinez ggestive of chronic HFpEF EF 55%, mild concentric LVH, stage II diastolic dysfunction, RVSP 79 mmHg consistent with severe pulmonary hypertension. 2+ eccentric MR and 1-2+ TR. Heart failure core measures including intake and output, fluid restriction less than 1500 mL, daily weight monitoring, kidney and electrolytes monitoring Review of labs showed normal liver panel on 11/22/2022. Tessalon Perles ordered. Cardiac diet ordered. 02/04: Patient shortness of breath is improved. Patient sitting on the chair on 4 L of oxygen. Patient does not have much leg swelling. Discussed with the product development carpenter. Patient felt better after dialysis yesterday. Dialysis days are Friday and Friday. Lasix 40 mg oral on days, not on dialysis. No potassium supplement. At same time patient had Levaquin prescription when she came to the ED and advised to complete the antibiotic. Continue incentive spirometry and Pep. Hypertensive emergency/flash pulm edema Highest systolic pressure of 220 on presentation. Home blood pressure medication resumed. As needed hydralazine ordered. Last BP 162/44. Patient on hydralazine 100 mg 3 times daily and Imdur 60 mg daily. Carvedilol 6.25 mg twice daily. Amlodipine 10 mg daily. Monitor blood pressure and will add low-dose diuretic 02/04: Blood pressure better 152/47. I think this is acceptable for her age seeing all the comorbidities. Patient is also on Lasix 40 mg as mentioned above Elevated troponin most likely due to myocardial injury from pulmonary hypertension/pulmonary edema Review of chart showed that on the first patient's visit had a high sensitive troponin was elevated at 190. Repeat was 251. Review of the ED physician note shows that per conversation cardiology cardiology did not want any further troponins. Acute on chronic anemia Hemoglobin on presentation was 7.4. Baseline hemoglobin is about 8.5-9. Hemoglobin is stable. Reticulocyte count 2.85 with immature fraction 27.1. B12 normal. Ferritin 1080, iron saturation 11.2% low iron 31, TIBC 278 overall suggestive of anemia of chronic kidney disease. Since patient has iron overload therefore would not give any ferrous sulfate. End-stage renal disease on dialysis Get dialysis Friday, Wednesdays and Fridays. Nephrology consult DVT prophylaxis: With acute on chronic anemia chemical thromboprophylaxis not ordered. SCDs ordered. 02/02/23 23:26: Procalcitonin 0.60 H 2D echo on 10/18/2022 Left ventricular systolic function is normal. The estimated ejection fraction is 55 %. Mild concentric left ventricular hypertrophy. The left atrium is moderately enlarged. There is moderate to severe mitral annular calcification. Extension of the mitral annular calcification onto the base of the posterior mitral valve leaflet. Moderate (2+) eccentric mitral valve insufficiency. Mild to moderate (1-2+) eccentric tricuspid valve insufficiency. Mild diffuse aortic valve thickening. Mild focal aortic valve calcification. Trivial pulmonic valve insufficiency. Calcified aortic root. Right ventricular systolic pressure estimated to be 79 mmHg. Severe pulmonary hypertension. Stage 2 diastolic dysfunction. Medications at Discharge Home Medications aspirin 81 mg tablet,delayed release 81 mg PO DAILY clot prevention 10/18/22 calcium acetate(phosphat bind) 667 mg tablet 667 mg PO TID Binder 10/18/22 carvedilol 6.25 mg tablet 6.25 mg PO BID heart 10/18/22 levothyroxine 100 mcg tablet 100 mcg PO SUSA thyroid 10/18/22 levothyroxine 200 mcg tablet 200 mcg PO MOTUWEFR hypothyroidism 10/18/22 clopidogrel 75 mg tablet 75 mg PO DAILY #0 tabs 10/19/22 nitroglycerin 0.4 mg sublingual tablet 0.4 mg sublingual Q5M PRN CHEST PAIN #0 tabs 10/19/22 isosorbide mononitrate 60 mg tablet,extended release 24 hr 60 mg PO DAILY #90 tabs 11/11/22 acetaminophen 325 mg tablet 650 mg PO DAILY headache 02/02/23 amlodipine 10 mg tablet 10 mg PO DAILY HTN 02/02/23 atorvastatin 20 mg tablet 20 mg PO QHS HLD 02/02/23 donepezil 10 mg tablet 10 mg PO DAILY VASCULAR DEMENTIA 02/02/23 hydralazine 100 mg tablet 100 mg PO TID KIDNEY DISEASE 02/02/23 levofloxacin 500 mg tablet 500 mg PO DAILY #7 tabs 02/02/23 ondansetron HCl 4 mg tablet 4 mg PO DAILY IBS 02/02/23 sennosides 8.6 mg tablet (senna) 8.6 mg PO DAILY CONSTIPATION 02/02/23 furosemide 40 mg tablet (Lasix) 40 mg PO QODAY #30 tabs 02/04/23 pantoprazole 40 mg tablet,delayed release 40 mg PO DAILY #0 tabs 02/04/23 Physical Exam Narrative She is sitting on the chair. She denies chest pain or tightness but was reported and EMS note. Patient not short of breath at rest. Eating her breakfast. She states she had also had a fall about 1 week ago and hit her left side of forehead above eyebrow Physical exam: General: Alert, Oriented x3, Cooperative HEENT: Atraumatic, PERRLA, EOMI, Normocephalic Oral: Oral mucosa moist. No Gingival or Mucosal Lesions/ Ulcerations Neck: Supple, No JVD, Negative Carotid Bruits Lungs: Air entry diminished in bilateral lungs mainly in lung bases. Chronic mild basilar crepitations. Cardiovascular: Regular rate, Regular Rhythm, Normal S1, Normal S2, Systolic murmur LLSB Abdomen: Bowel Sounds Present, Soft, Non Tender, Non-Distended : On hemodialysis. No renal angle tenderness. No suprapubic tenderness. Extremities: No edema, Capillary Refill Less than 3 Seconds Skin: Bruise over left side of forehead and left lower leg, patchy Musculoskeletal: No Tenderness to Palpation of Joints or Extremities ROM restricted. Muscle strength 4+/5 at bilateral knees and hip joints. Neurological: Cranial nerves II-XII grossly intact, DTR 2+/4 and Symmetrical, Neuro grossly intact Psych/Mental Status: Flat affect Weight / BMI Weight Weight: 122 lb 2.177 oz Body Mass Index (BMI) 25.5 ABG / Lab / Microbiology Data Result Diagrams: 02/04/23 05:22 02/04/23 05:22 Laboratory: Laboratory Results - last 24 hr 02/04/23 05:22: WBC 7.0, RBC 2.19 L, Hgb 7.6 L, Hct 24.8 L, MCV 113.2 H, MCH 34.7 H, MCHC 30.6 L, RDW Std Deviation 56.6 H, RDW Coeff of Sotero 13.8, Plt Count 134 L, MPV 11.6, Immature Gran % (Auto) 0.400, Neut % (Auto) 84.6 H, Lymph % (Auto) 5.6 L, [place] % (Auto) 8.2, Eos % (Auto) 0.9, Baso % (Auto) 0.3, Absolute Neuts (auto) 5.9, Absolute Lymphs (auto) 0.39 L, Nucleated RBC % 0, Platelet Estimate SLT DEC, Macrocytosis 2+ 02/04/23 05:22: Sodium 134 L, Potassium 4.3, Chloride 100, Carbon Dioxide 29.0, Anion Gap 5, BUN 40 H, Creatinine 4.53 H, Estim Creat Clear Calc 7.65, Est GFR (MDRD) Af Amer 12 L, Est GFR (MDRD) Non-Af 10 L, BUN/Creatinine Ratio 8.8 L, Glucose 108 H, Calcium 8.8 Microbiology: Microbiology 02/03/23 05:20 Urine, Random Legionella Antigen - Final 02/03/23 05:20 Urine, Random Streptococcus pneumoniae Antigen (M - Final 02/03/23 05:10 Nasal Secretion SARS-CoV-2 & FLU Antigen (Rapid) - Final Meaningful Use Info Meaningful Use Diagnoses (Choose all that apply): None applicable Discharge Plan Admission Admit Date/Time: 02/02/23 21:31 Primary Reason for Your Visit: pulmonary edema and pneumonia Attending Provider: Luis Carlos Baca Primary Care Provider: Cat Holman Consulting Providers: Nathan Hinojosa ; Elizabeth Reaves Instructions Additional Instructions / Restrictions: Advised take take furosemide on days, not on dialysis Discharge Orders/Prescriptions Prescriptions: New pantoprazole 40 mg Tablet,Delayed Release (Dr/Ec) 40 mg PO DAILY Qty: 0 0RF furosemide [Lasix] 40 mg tablet 40 mg PO QODAY Qty: 30 0RF Rx Instructions: Do not give Lasix on days of dialysis. Continued isosorbide mononitrate 60 mg tablet extended release 24 hr 60 mg PO DAILY Qty: 90 3RF carvedilol 6.25 mg tablet 6.25 mg PO BID calcium acetate(phosphat bind) 667 mg tablet 667 mg PO TID aspirin 81 mg tablet,delayed release (DR/EC) 81 mg PO DAILY Label Comments: TAKE 1 TABLET BY MOUTH EVERY DAY levothyroxine 100 mcg tablet 100 mcg PO SUSA levothyroxine 200 mcg tablet 200 mcg PO MOTUWEFR clopidogrel 75 mg Tablet 75 mg PO DAILY Qty: 0 0RF nitroglycerin 0.4 mg Tablet, Sublingual 0.4 mg sublingual Q5M PRN (Reason: CHEST PAIN) Qty: 0 0RF sennosides [senna] 8.6 mg Tablet 8.6 mg PO DAILY acetaminophen 325 mg Tablet 650 mg PO DAILY donepezil 10 mg tablet 10 mg PO DAILY ondansetron HCl 4 mg Tablet 4 mg PO DAILY hydralazine 100 mg tablet 100 mg PO TID atorvastatin 20 mg tablet 20 mg PO QHS amlodipine 10 mg tablet 10 mg PO DAILY levofloxacin 500 mg tablet 500 mg PO DAILY Qty: 7 0RF Discontinued loperamide 2 mg Tablet 2 mg PO BID PRN (Reason: Loose Stool) famotidine 20 mg tablet 20 mg PO QHS Referrals / Follow Up: Elizabeth Reaves MD [Med Staff - Consulting] - Within 1 Month Cat Holman MD [Primary Care Provider] - Within 1 Week Sae Bridges NP, [facility] [Med Staff - Adv Practice Prof] - Within 1 Month (Heart failure) Disposition Disposition (needs filled in before D/C Order can be placed): Nursing Home Facility Charges/Coding Visit Charges Inpatient E&M: 80082 Disch Hosp >30min
--- NOTE | 2023-02-04 12:14 | PHA.DC.MR ---
Pharmacy Service has performed discharge medication reconciliation for this patient. The patient's discharge medication list was reviewed for discrepancies and discrepancies were resolved. Home Medications aspirin 81 mg tablet,delayed release 81 mg PO DAILY clot prevention 10/18/22 calcium acetate(phosphat bind) 667 mg tablet 667 mg PO TID Binder 10/18/22 carvedilol 6.25 mg tablet 6.25 mg PO BID heart 10/18/22 levothyroxine 100 mcg tablet 100 mcg PO SUSA thyroid 10/18/22 levothyroxine 200 mcg tablet 200 mcg PO MOTUWEFR hypothyroidism 10/18/22 clopidogrel 75 mg tablet 75 mg PO DAILY #0 tabs 10/19/22 nitroglycerin 0.4 mg sublingual tablet 0.4 mg sublingual Q5M PRN CHEST PAIN #0 tabs 10/19/22 isosorbide mononitrate 60 mg tablet,extended release 24 hr 60 mg PO DAILY #90 tabs 11/11/22 acetaminophen 325 mg tablet 650 mg PO DAILY headache 02/02/23 amlodipine 10 mg tablet 10 mg PO DAILY HTN 02/02/23 atorvastatin 20 mg tablet 20 mg PO QHS HLD 02/02/23 donepezil 10 mg tablet 10 mg PO DAILY VASCULAR DEMENTIA 02/02/23 hydralazine 100 mg tablet 100 mg PO TID KIDNEY DISEASE 02/02/23 levofloxacin 500 mg tablet 500 mg PO DAILY #7 tabs 02/02/23 ondansetron HCl 4 mg tablet 4 mg PO DAILY IBS 02/02/23 sennosides 8.6 mg tablet (senna) 8.6 mg PO DAILY CONSTIPATION 02/02/23 furosemide 40 mg tablet (Lasix) 40 mg PO QODAY #30 tabs 02/04/23 pantoprazole 40 mg tablet,delayed release 40 mg PO DAILY #0 tabs 02/04/23
--- NOTE | 2023-02-04 12:39 | NURSING ---
This RN called report to SD Rouse at [facility].
--- NOTE | 2023-02-04 14:28 | CASEMGMT ---
Patient is ready for discharge back to [facility]. SW arranged for patient to get picked up at 1p via cot. SW sent orders and fiber picker time to [facility]. SW notified RN and medical secretary teacher. RN spoke with patient's friend and notified her of patient returning to [facility]. Plan: d/c back to [facility] under intermediate level of care. Physicians transported via cot. Lizet Carlos [employer] TECHNICAL LEAD SENIOR DEVELOPER RANDOLPH
== END 2023-02-04 13:41 | disposition skilled nursing facility (03) | DRG 304 ==
LOC: ED 19:12 → PCU 21:56
PROVIDERS: Admitting Provider Hospitalist; Emergency Provider Emergency Medicine; PCP Internal Medicine; Visit Provider Internal Medicine
DX: I16.1 Hypertensive emergency (principal); J18.9 Pneumonia, unspecified organism; N18.6 End stage renal disease; I5A Non-ischemic myocardial injury (non-traumatic); I50.32 Chronic diastolic (congestive) heart failure; I27.20 Pulmonary hypertension, unspecified; D63.1 Anemia in chronic kidney disease; I13.2 Hypertensive heart and chronic kidney disease with heart failure and with stage 5 chronic kidney disease, or end stage renal disease; Z99.2 Dependence on renal dialysis; E03.9 Hypothyroidism, unspecified; I25.10 Atherosclerotic heart disease of native coronary artery without angina pectoris; I25.2 Old myocardial infarction; J32.9 Chronic sinusitis, unspecified; R09.02 Hypoxemia; Z98.61 Coronary angioplasty status; Z79.02 Long term (current) use of antithrombotics/antiplatelets; Z79.82 Long term (current) use of aspirin; Z79.899 Other long term (current) drug therapy; Z86.718 Personal history of other venous thrombosis and embolism; Z86.73 Personal history of transient ischemic attack (TIA), and cerebral infarction without residual deficits
CPT/HCPCS: 36415; 36600; 71045; 80048; 80053; 82607; 82728; 82746; 82803; 83540; 83550; 83735; 83880; 84145; 84484; 85025; 85045; 87428; 87449; 90937; 93005; 94002; 94668; 97802; 99285; J7050; A4216; G0257; J1940; J2405

== ENCOUNTER → 2023-02-06 | Outpatient (REF) | payer MEDICARE, MEDICAID, SELFPAY ==
[2023-02-06 07:39] LABS: Absolute Lymphocyte Count 0.69 X10^3/uL (0.83-4.51); Absolute Neutrophil Count 2.9 X10^3/uL (2.0-7.7); Basophil# 0.03 X10^3/uL; Basophil% 0.7 % (0-1); Eosinophil# 0.17 X10^3/uL; Eosinophils% 3.9 % (0-5); Hematocrit 23.3 % (37-47); Hemoglobin 7.2 g/dL (12.0-15.0); Lymphocyte # 0.69 X10^3/ul (0.83-4.51); Lymphocyte % 15.9 % (19-41); Mean Corp Hgb Conc 30.9 g/dL (32-36); Mean Corpuscular Volume 113.1 fL (81-99); Mean Platelet Vol. 11.8 fl (6.2-12.0); Monocyte# 0.52 X10^3/uL; NRBC Flagged by Analyzer 0 % (0-5); Neutrophil % 66.6 % (47-70); Platelet Count 142 K/mm3 (150-450); RBC Distribution Width CV 14.1 % (11.6-14.6); RBC Distribution Width SD 57.6 fl (35.1-43.9); Red Blood Count 2.06 M/mm3 (4.2-5.4); White Blood Count 4.4 K/mm3 (4.4-11.0)
[2023-02-06 08:00] LABS: Ferritin 937 ng/mL (8-252); Iron 80 ug/dL (50-170); Iron Binding Capacity,Total 179 ug/dL (250-450)
== END ==
LOC: OLS.SW 05:00
PROVIDERS: PCP Internal Medicine; Visit Provider Internal Medicine
DX: D64.9 Anemia, unspecified (principal)
CPT/HCPCS: 36415; 82728; 83540; 83550; 85025

== ENCOUNTER → 2023-04-10 | Outpatient (REF) | payer MEDICARE, MEDICAID, SELFPAY ==
[2023-04-10 09:26] LABS: Absolute Lymphocyte Count 0.81 X10^3/uL (0.83-4.51); Absolute Neutrophil Count 2.1 X10^3/uL (2.0-7.7); Basophil# 0.05 X10^3/uL; Basophil% 1.4 % (0-1); Eosinophil# 0.34 X10^3/uL; Eosinophils% 9.5 % (0-5); Hematocrit 28.8 % (37-47); Hemoglobin 9.2 g/dL (12.0-15.0); Lymphocyte # 0.81 X10^3/ul (0.83-4.51); Lymphocyte % 22.6 % (19-41); Mean Corp Hgb Conc 31.9 g/dL (32-36); Mean Corpuscular Hgb 35.2 pg (27.0-32.0); Mean Corpuscular Volume 110.3 fL (81-99); Mean Platelet Vol. 11.7 fl (6.2-12.0); Monocyte# 0.27 X10^3/uL; Monocyte% 7.5 % (0-10); NRBC Flagged by Analyzer 0 % (0-5); Neutrophil % 58.7 % (47-70); Platelet Count 142 K/mm3 (150-450); RBC Distribution Width CV 14.4 % (11.6-14.6); RBC Distribution Width SD 58.1 fl (35.1-43.9); Red Blood Count 2.61 M/mm3 (4.2-5.4); White Blood Count 3.6 K/mm3 (4.4-11.0)
[2023-04-10 09:56] LABS: Anion Gap 11 (5-15); BUN 109 mg/dL (7-18); BUN/Creat Ratio 15.5 RATIO (10-20); Chloride 101 mmol/L (98-107); Creatinine, Serum 7.01 mg/dL (0.55-1.02); EST Glomerular Filtration Rate 6 mL/min (>60); Est Glom Filt Rate - Afr Amer 7 mL/min (>60); Glucose 130 mg/dL (74-106); Potassium 4.4 mmol/L (3.5-5.1); Sodium Level 140 mmol/L (136-145)
== END ==
LOC: OLS.SW 05:00
PROVIDERS: PCP Internal Medicine; Visit Provider Internal Medicine
DX: J81.1 Chronic pulmonary edema (principal); N18.6 End stage renal disease
CPT/HCPCS: 80048; 85025

== ENCOUNTER 2023-05-17 07:43 | Inpatient (IN) | payer MEDICARE, MEDICAID, SELFPAY ==
[2023-05-17] VITALS (14 sets, daily range): BP systolic 128–152; BP diastolic 44–61; PULSE 59–71; RESP 16–22; TEMP 36.2–37; O2SAT 92–99; BMI 26.0; BMI 24.8
--- NOTE | 2023-05-17 07:53 | CT_ITS ---
EXAM: CT ABDOMEN AND PELVIS WITH INTRAVENOUS CONTRAST CLINICAL INDICATION: GI bleed. DIALYSIS TECHNIQUE: Helically acquired images were obtained of the abdomen and pelvis with intravenous contrast. This CT exam was performed using one or more of the following dose reduction techniques: automated exposure control, adjustment of the mA and/or kV according to patient size, and/or use of iterative reconstruction technique. CONTRAST: IV 75mL [id number] COMPARISON: No relevant prior studies available. FINDINGS: LOWER THORAX: Small bilateral pleural effusions. Mild cardiomegaly. ABDOMEN: LIVER: Liver demonstrates periportal lucency suggesting edema possibly related to enhanced patient hydration. PANCREAS: Normal. No focal cystic or solid mass. SPLEEN: Normal. Normal size without focal cystic or solid mass. ADRENALS: Normal. No nodules. KIDNEYS AND URETERS: Both kidneys are small in size each measuring approximate 6 cm in maximum length diffuse cortical thinning indicative of chronic parenchymal renal disease. Multiple small simple renal cysts noted bilaterally. Normal renal size and position. No hydronephrosis. STOMACH AND BOWEL: Diverticulosis of the colon noted without evidence of acute diverticulitis. PELVIS: APPENDIX: Appendix is visualized and normal in appearance. BLADDER: Urinary bladder is contracted which may account for the wall thickening. Cystitis is not excluded. REPRODUCTIVE: Unremarkable as visualized. No mass. ABDOMEN and PELVIS: INTRAPERITONEAL SPACE: Normal. No ascites or other fluid collection. No free air. BONES/JOINTS: Prominent levoscoliosis of the lumbar spine. Prominent degenerative changes are noted within the spine. L4-[address] with interpedicular screws noted bilaterally at L4 and L5. SOFT TISSUES: Mild diffuse edematous changes of the subcutaneous tissues. VASCULATURE: 3 cm saccular aneurysm of the infrarenal abdominal aorta. IVC filter in place in satisfactory position. LYMPH NODES: Normal. No enlarged lymph nodes. CT/Abdomen/Pelvis W IV Cont ONLY IMPRESSION: 1. Nonspecific periportal edema. 2. Question urinary cystitis. 3. Chronic parenchymal renal disease. 4. 3 cm saccular infrarenal abdominal aortic aneurysm. 5. Diverticulosis coli. 6. Additional nonacute findings described above. Electronically Signed: Nino Long MD at 9:08 EDT ,
--- NOTE | 2023-05-17 07:53 | EKG12_ITS ---
Test Reason : GI BLEED Blood Pressure : / mmHG Vent. Rate : 064 BPM Atrial Rate : 064 BPM P-R Int : 184 ms QRS Dur : 104 ms QT Int : 458 ms P-R-T Axes : 055 015 197 degrees QTc Int : 472 ms Normal sinus rhythm Marked ST abnormality, possible inferior subendocardial injury Abnormal ECG Confirmed by MIMI OCHOA, DUANE ([id number]), digital editor AMILCAR WELLINGTON ([id number]) on 05/22/2023 8:29:34 AM Referred By: Confirmed By:ANISHA LE MD
--- NOTE | 2023-05-17 07:56 | EX.ED.DYSGE1 ---
HPI History of Present Illness Chief Complaint: GI Bleed Informant: patient and EMS Narrative Narrative: Patient presents via EMS secondary to GI bleed. She was sent from [facility] with GI symptoms the past couple of days. Patient states she thought she has been having some diarrhea. She denies significant abdominal pain. She also complains of cough with phlegm that has been ongoing for quite some time. Patient is unsure if or when she last had a colonoscopy. It appears that she does have a history of DVT and has an IVC filter. It does not appear that she is on anticoagulants. She is dialysis dependent on Friday, Friday, , and Friday. 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 Carotid disease, bilateral Dementia DVT (deep venous thrombosis) End stage renal disease History of left heart catheterization (LHC) (~10/18/22) Hypertension Hypothyroidism IBS (irritable bowel syndrome) Non-ST elevation NC (NSTEMI) TIA (transient ischemic attack) Home Medications aspirin 81 mg tablet,delayed release 81 mg PO DAILY HEART HEALTH 10/18/22 [History Last Taken 05/16/23] carvedilol 6.25 mg tablet 6.25 mg PO BID HEART 10/18/22 [History Last Taken 05/16/23] levothyroxine 100 mcg tablet 100 mcg PO SUSA THYROID 10/18/22 [History Last Taken 05/17/23] levothyroxine 200 mcg tablet 200 mcg PO MOTUWEFR THYROID 10/18/22 [History Last Taken 05/16/23] clopidogrel 75 mg tablet 75 mg PO DAILY BLOOD THINNER #0 tabs 10/19/22 [Rx Last Taken 05/16/23] nitroglycerin 0.4 mg sublingual tablet 0.4 mg sublingual Q5M PRN CHEST PAIN #0 tabs 10/19/22 [Rx Last Taken 02/02/23] isosorbide mononitrate 60 mg tablet,extended release 24 hr 60 mg PO DAILY BLOOD PRESSURE #90 tabs 11/11/22 [Rx Last Taken 05/16/23] acetaminophen 325 mg tablet 650 mg PO Q4H PRN PAIN 02/02/23 [History Last Taken 02/01/23] amlodipine 10 mg tablet 10 mg PO DAILY BLOOD PRESSURE 02/02/23 [History Last Taken 05/16/23] atorvastatin 20 mg tablet 20 mg PO QHS CHOLESTEROL 02/02/23 [History Last Taken 05/16/23] donepezil 10 mg tablet 10 mg PO QHS DEMENTIA 02/02/23 [History Last Taken 05/16/23] hydralazine 100 mg tablet 100 mg PO TID BLOOD PRESSURE 02/02/23 [History Last Taken 05/17/23] ondansetron HCl 4 mg tablet 4 mg PO DAILY NAUSEA 02/02/23 [History Last Taken 05/16/23] sennosides 8.6 mg tablet (senna) 8.6 mg PO DAILY CONSTIPATION 02/02/23 [History Last Taken 05/16/23] pantoprazole 40 mg tablet,delayed release 40 mg PO DAILY ACID REFLUX #0 tabs 02/04/23 [Rx Last Taken 05/16/23] acetaminophen 325 mg tablet 325 mg PO DAILY HEADACHE 05/17/23 [History Last Taken 05/16/23] bisacodyl 10 mg rectal suppository 10 mg MI DAILY PRN CONSTIPATION 05/17/23 [History Last Taken Unknown] calcitriol 0.25 mcg capsule 0.25 mcg PO MOWEFR KIDNEY DISEASE 05/17/23 [History Last Taken 05/16/23] furosemide 40 mg tablet (Lasix) 40 mg PO SUTHSA FLUID 05/17/23 [History Last Taken 05/16/23] glucagon HCl 1 mg solution for injection (Glucagon (HCl) Emergency Kit) 1 mg IM Q20M PRN HYPOGLYCEMIA 05/17/23 [History Last Taken Unknown] loratadine 10 mg tablet (Allergy Relief (loratadine)) 10 mg PO QHS ALLERGIES 05/17/23 [History Last Taken 05/16/23] Allergy/AdvReac Type Severity Reaction Status Date / Time codeine Allergy Hives Verified 05/17/23 07:44 morphine Allergy Hives Verified 05/17/23 07:44 oxycodone Allergy Hives Verified 05/17/23 07:44 propoxyphene Allergy NEEDS Verified 05/17/23 07:44 FOLLOW-UP tramadol Allergy NEEDS Verified 05/17/23 07:44 FOLLOW-UP Family History Mother Diabetes Father Diabetes Surgical History H/O coronary angioplasty History of back surgery History of total left knee replacement S/p bilateral carotid endarterectomy S/P PTCA (percutaneous transluminal coronary angioplasty) Social History household members: none housing: [facility] Smoking Status: Never smoker alcohol intake: never substance use type: does not use ROS ROS ED Constitutional Constitutional ED: Denies chills or fever(s) ENT ENT ED: Reports other Details: Increased phlegm ; Denies rhinorrhea or sore throat Cardiovascular Cardiovascular: Denies chest pain or palpitations Respiratory/Chest Respiratory/Chest: Denies cough or dyspnea Gastrointestinal Gastrointestinal: Reports diarrhea; Denies abdominal pain, nausea or vomiting Musculoskeletal Musculoskeletal: Denies back pain or extremity pain Integumentary Denies Abrasions or rash Neurologic Neurologic: Reports weakness; Denies headache(s) Psychiatric Psychiatric: Denies anxiety or depression Allergic/Immunologic Allergic/Immunologic ED: Denies lip swelling or urticaria EXAM Physical Exam Const Vital Signs: 05/17/23 07:44 05/17/23 08:57 Temperature 97.1 F L Temperature Source Temporal Pulse Rate 67 71 Respiratory Rate 22 H 18 Blood Pressure 152/44 H 133/58 H Blood Pressure Mean 80 83 Pulse Ox 99 99 Oxygen Delivery Method Room Air Room Air Positive cachectic General Appearance ED: cachectic and pallor Nutritional Appearance: cachectic HEENT Reports moist mucous membranes Eyes EOMs intact bilaterally Chest Wall inspection of chest normal and palpation of chest normal Resp normal respiratory effort and clear to auscultation bilaterally Cardio regular rate and regular rhythm GI GI Narrative: Abdomen soft and nontender. Hypoactive but present bowel sounds. Extremity normal to inspection Neuro Neuro Narrative: Patient alert and answers questions appropriately. Skin no rashes or lesions noted General Skin Exam: pallor MDM MDM MDM Narrative Medical decision making narrative: Given the patient's chronic renal failure and dialysis status, IV fluids are not initiated. Her vital signs are closely monitored. She was given a small dose of Reglan for nausea. Labwork obtained to evaluate for leukocytosis, anemia, and electrolyte derangement. CT scan of the abdomen and pelvis with IV contrast obtained to evaluate for bowel wall thickening or abnormality. Lab Data Attestation: I reviewed the patient's lab results. Labs: Laboratory Results - last 24 hr 05/17/23 08:20 WBC 9.4 RBC 1.51 L Hgb 5.4 L* Hct 16.7 L MCV 110.6 H MCH 35.8 H MCHC 32.3 RDW Std Deviation 65.3 H RDW Coeff of [place]ot[place] 16.7 H Plt Count 184 MPV 11.9 Immature Gran % (Auto) 0.500 Neut % (Auto) 87.6 H Lymph % (Auto) 6.1 L [place] % (Auto) 5.0 Eos % (Auto) 0.5 Baso % (Auto) 0.3 Absolute Neuts (auto) 8.2 H Absolute Lymphs (auto) 0.57 L Nucleated RBC % 0 Diff Path Review May foll Hypochromasia 2+ Anisocytosis 2+ PT 15.8 H INR 1.3 APTT 36.8 H Sodium 135 L Potassium 4.9 Chloride 96 L Carbon Dioxide 27.0 Anion Gap 12 BUN 75 H Creatinine 4.61 H Estim Creat Clear Calc 7.67 Est GFR (MDRD) Af Amer 12 L Est GFR (MDRD) Non-Af 10 L BUN/Creatinine Ratio 16.3 Glucose 155 H Lactic Acid 3.3 H* Calcium 8.9 Total Bilirubin 0.40 Direct Bilirubin 0.14 AST 23 ALT 20 Alkaline Phosphatase 112 Total Protein 7.0 Albumin 3.5 Globulin 3.5 Blood Type A POSITIVE Antibody Screen NEGATIVE Radiography Diagnostic Testing: Clinical Impression(s) from Imaging Studies Abdomen/Pelvis CT 05/17/23 07:53 IMPRESSION: 1. Nonspecific periportal edema. 2. Question urinary cystitis. 3. Chronic parenchymal renal disease. 4. 3 cm saccular infrarenal abdominal aortic aneurysm. 5. Diverticulosis coli. 6. Additional nonacute findings described above. Electronically Signed: Nino Long MD at 9:08 EDT , EKG Initial EKG: Attestation: I personally reviewed and interpreted this EKG as follows: Interpretation: Sinus Rhythm (Sinus at [address] depression in V3 through V6 as well as 1 and 2. Appears patient has had ST depression in V4 through V6 previously, but it is slightly more pronounced currently.) Treatment and Re-Evaluation :: Patient was rolled to do a rectal exam and has grossly bloody discharge. CBC reveals a hemoglobin of 5.4 with hematocrit of 16.7. Chemistry studies reveal a sodium of 135. Her BUN is 75 and a creatinine is 4.61. She had her last full run of dialysis yesterday. Lactic acid is elevated at 3.3. CT scan of the abdomen pelvis reveals nonspecific periportal edema and a 3 cm saccular infrarenal aneurysm. Diverticulosis is noted. Patient has been ordered 3 units of blood. I spoke with Dr. Ramsay, on-call for GI and will speak with hospitalist regarding admission. Discharge Plan Triage Chief Complaint: GI Bleed ED Provider: Jackelin Ewing Dx/Rx/DC Orders Clinical Impression: GI bleed, Anemia Prescriptions: No Action isosorbide mononitrate 60 mg tablet extended release 24 hr 60 mg PO DAILY Qty: 90 3RF carvedilol 6.25 mg tablet 6.25 mg PO BID aspirin 81 mg tablet,delayed release (DR/EC) 81 mg PO DAILY levothyroxine 100 mcg tablet 100 mcg PO SUSA levothyroxine 200 mcg tablet 200 mcg PO MOTUWEFR clopidogrel 75 mg Tablet 75 mg PO DAILY Qty: 0 0RF nitroglycerin 0.4 mg Tablet, Sublingual 0.4 mg sublingual Q5M PRN (Reason: CHEST PAIN) Qty: 0 0RF sennosides [senna] 8.6 mg Tablet 8.6 mg PO DAILY acetaminophen 325 mg Tablet 650 mg PO Q4H PRN (Reason: PAIN ) donepezil 10 mg tablet 10 mg PO QHS ondansetron HCl 4 mg Tablet 4 mg PO DAILY hydralazine 100 mg tablet 100 mg PO TID atorvastatin 20 mg tablet 20 mg PO QHS amlodipine 10 mg tablet 10 mg PO DAILY pantoprazole 40 mg Tablet,Delayed Release (Dr/Ec) 40 mg PO DAILY Qty: 0 0RF calcitriol 0.25 mcg capsule 0.25 mcg PO MOWEFR loratadine [Allergy Relief (loratadine)] 10 mg tablet 10 mg PO QHS Rx Instructions: PER F ORDER SUMMARY REPORT, GIVE ONE TABLET BY MOUTH AT BEDTIME FOR ALLERGIES FOR 7 DAYS. START DATE: END DATE: 05-20-23 acetaminophen 325 mg tablet 325 mg PO DAILY furosemide [Lasix] 40 mg tablet 40 mg PO SUTHSA bisacodyl 10 mg suppository 10 mg MI DAILY PRN (Reason: CONSTIPATION ) glucagon HCl [Glucagon (HCl) Emergency Kit] 1 mg recon soln 1 mg IM Q20M PRN (Reason: HYPOGLYCEMIA ) Primary Care Provider: Cat Holman Referrals: Cat Holman MD [Primary Care Provider] - Disposition Disposition: Acute Care Hospital [facility]
[2023-05-17] MEDS: Metoclopramide 10 MG/2 ML Vial 5 MG IV (08:27)
[2023-05-17 08:29] LABS: Absolute Lymphocyte Count 0.57 X10^3/uL (0.83-4.51); Absolute Neutrophil Count 8.2 X10^3/uL (2.0-7.7); Basophil# 0.03 X10^3/uL; Basophil% 0.3 % (0-1); Eosinophil# 0.05 X10^3/uL; Eosinophils% 0.5 % (0-5); Hematocrit 16.7 % (37-47); Hemoglobin 5.4 g/dL (12.0-15.0); Lymphocyte # 0.57 X10^3/ul (0.83-4.51); Lymphocyte % 6.1 % (19-41); Mean Corp Hgb Conc 32.3 g/dL (32-36); Mean Corpuscular Hgb 35.8 pg (27.0-32.0); Mean Corpuscular Volume 110.6 fL (81-99); Mean Platelet Vol. 11.9 fl (6.2-12.0); Monocyte# 0.47 X10^3/uL; NRBC Flagged by Analyzer 0 % (0-5); Neutrophil # 8.19 X10^3/uL (2.7-7.7); Neutrophil % 87.6 % (47-70); POSITIVE COUNT YES; POSITIVE DIFFERENTIAL YES; POSITIVE MORPHOLOGY YES; Platelet Count 184 K/mm3 (150-450); RBC Distribution Width CV 16.7 % (11.6-14.6); RBC Distribution Width SD 65.3 fl (35.1-43.9); Red Blood Count 1.51 M/mm3 (4.2-5.4); White Blood Count 9.4 K/mm3 (4.4-11.0)
[2023-05-17 08:37] LABS: International Normalized Ratio 1.3; Prothrombin Time (Protime)PT. 15.8 SECONDS (11.7-14.9)
[2023-05-17 08:38] LABS: Partial Thromboplast Time 36.8 Seconds (24.1-36.2)
[2023-05-17 08:47] LABS: AST(SGOT) 23 U/L (15-37); Alanine Aminotransfer ALT/SGPT 20 U/L (13-56); Albumin, Serum 3.5 g/dL (3.2-5.0); Alkaline Phosphatase 112 U/L (45-117); Anion Gap 12 (5-15); BUN 75 mg/dL (7-18); BUN/Creat Ratio 16.3 RATIO (10-20); Bilirubin, Direct 0.14 mg/dL (0.00-0.30); Calcium,Total 8.9 mg/dL (8.5-10.1); Chloride 96 mmol/L (98-107); Creatinine, Serum 4.61 mg/dL (0.55-1.02); EST Glomerular Filtration Rate 10 mL/min (>60); Est Glom Filt Rate - Afr Amer 12 mL/min (>60); Estimated Creatinine Clearance 7.67 ml/min; Globulin 3.5 g/dL (2.2-4.2); Glucose 155 mg/dL (74-106); Potassium 4.9 mmol/L (3.5-5.1); Sodium Level 135 mmol/L (136-145)
[2023-05-17 08:55] LABS: Anisocytosis 2+; Hypochromasia 2+
[2023-05-17 08:56] LABS: Differential Indicated SCAN CRITERIA MET
[2023-05-17 09:07] LABS: Lactic Acid 3.3 mmol/L (0.4-1.9)
[2023-05-17 10:39] LABS: Magnesium 1.9 mg/dL (1.6-2.6)
--- NOTE | 2023-05-17 11:14 | NURSING ---
1115 Dr. Baca present, begin TL placement HR 62 BP 138/45, SpO2 94 1120 HR 64 BP 137/50 SpO2 94 lidocaine given SQ per Dr. Baca 1125 HR 68 BP 137/48 SpO2 93 1130 HR 67 BP 141/48 SpO2 94 1132 marlene to 48 briefly, return to HR 70 1134 short burst bigeminy 1135 HR 70 BP 136/50 SpO2 94 1138 TL placed RSC 1140 HR 62 BP 134/50 SpO2 93 sutures placed, chlorohex drsg placed
--- NOTE | 2023-05-17 11:45 | RAD_ITS ---
EXAM: XR CHEST, 1 VIEW CLINICAL INDICATION: line placement TECHNIQUE: Frontal view of the chest. COMPARISON: XR Chest dated 02/02/2023 FINDINGS: LUNGS AND PLEURAL SPACES: Currently B-lines again noted which may represent interstitial edema or fibrosis. Pulmonary vascular congestion. No pneumothorax. No gross pleural effusion. HEART: Heart is top normal size. MEDIASTINUM: No mediastinal or hilar mass. BONES/JOINTS: No acute abnormality. TUBES, LINES AND DEVICES: Right subclavian central venous catheter tip in the mid superior vena cava. RAD/CXR for Line Placement IMPRESSION: CHF. Satisfactory central line placement. Electronically Signed: Nino Long MD at 12:54 EDT ,
--- NOTE | 2023-05-17 11:50 | PCM.OP.PRO ---
Procedure Report Date of Procedure: 05/17/23 Inserted to left central venous catheter over right subclavian vein Indication: No peripheral line available. EJ vein tried but it blew up. Patient requires blood transfusion and IV fluid. Procedure note: Patient had bilateral carotid surgery, bilateral carotid endarterectomy. Therefore right subclavian vein was selected for central venous line insertion. Informed consent was taken. Indication, risk and complication explained to the patient and patient gave informed consent. Under strict aseptic precaution, right neck was sterilized and draped. Lidocaine 1% 5 mL was used for local anesthesia and local area was well infiltrated. The skin was punctured with anatomical pointing to suprasternal notch and venous blood return. The guidewire was passed without resistance. The guidewire tract was dilated with a dilator. Triple-lumen catheter was passed over guidewire and the guidewire was removed. Good venous blood flow return in all 3 ports. TLC catheter was secured with silk 2 0. Portable chest x-ray was done and shows the tip of TLC at cavoatrial junction or right atrium. Triple-lumen catheter is safe to use. Procedures Hospitalists Procedures: [id number] Insert Non-tunnel CV Cath
--- NOTE | 2023-05-17 11:57 | HP.PCM.HOS_ITS ---
HPI - General General Date of Admission: 05/17/23 Date of Service: 05/17/23 Chief Complaint: GI bleed for past 3 to 4 days. HPI Narrative PRASANNA VARGAS, is a 87 F was sent to ED from [facility] for GI bleed, dark and then bright red blood for last 3 to 4 days. She states he is having diarrhea about 4-5 loose bowel movements daily for 5 days. She denies abdominal pain. She denies chest pain shortness of breath dizziness or lightheadedness. She has mild cough with phlegm which is chronic. Patient has forgetfulness and dementia and therefore patient cannot provide chronology and details of the history for most questions he said she is not sure or does not know. Unclear when she had last colonoscopy. Patient on baby aspirin, clopidogrel but not on anticoagulant. History of non-STEMI in the past, DVT and TIA status post bilateral carotid endarterectomy. Patient also on hemodialysis, Friday. 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 Reaves. In ED, heart rate was in 60s, blood pressure in normal range. No tachypnea or hypoxia. CT abdomen done in the ED shows nonspecific periportal edema, chronic parenchymal renal disease, 3 cm saccular infrarenal AAA, diverticulosis coli and other nonacute findings. 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 Carotid disease, bilateral Dementia DVT (deep venous thrombosis) End stage renal disease History of left heart catheterization (LHC) (~10/18/22) Hypertension Hypothyroidism IBS (irritable bowel syndrome) Non-ST elevation NM (NSTEMI) TIA (transient ischemic attack) Home Medications aspirin 81 mg tablet,delayed release 81 mg PO DAILY HEART HEALTH 10/18/22 [History Last Taken 05/16/23] carvedilol 6.25 mg tablet 6.25 mg PO BID HEART 10/18/22 [History Last Taken 05/16/23] levothyroxine 100 mcg tablet 100 mcg PO SUSA THYROID 10/18/22 [History Last Taken 05/17/23] levothyroxine 200 mcg tablet 200 mcg PO MOTUWEFR THYROID 10/18/22 [History Last Taken 05/16/23] clopidogrel 75 mg tablet 75 mg PO DAILY BLOOD THINNER #0 tabs 10/19/22 [Rx Last Taken 05/16/23] nitroglycerin 0.4 mg sublingual tablet 0.4 mg sublingual Q5M PRN CHEST PAIN #0 tabs 10/19/22 [Rx Last Taken 02/02/23] isosorbide mononitrate 60 mg tablet,extended release 24 hr 60 mg PO DAILY BLOOD PRESSURE #90 tabs 11/11/22 [Rx Last Taken 05/16/23] acetaminophen 325 mg tablet 650 mg PO Q4H PRN PAIN 02/02/23 [History Last Taken 02/01/23] amlodipine 10 mg tablet 10 mg PO DAILY BLOOD PRESSURE 02/02/23 [History Last Taken 05/16/23] atorvastatin 20 mg tablet 20 mg PO QHS CHOLESTEROL 02/02/23 [History Last Taken 05/16/23] donepezil 10 mg tablet 10 mg PO QHS DEMENTIA 02/02/23 [History Last Taken 05/16/23] hydralazine 100 mg tablet 100 mg PO TID BLOOD PRESSURE 02/02/23 [History Last Taken 05/17/23] ondansetron HCl 4 mg tablet 4 mg PO DAILY NAUSEA 02/02/23 [History Last Taken 05/16/23] sennosides 8.6 mg tablet (senna) 8.6 mg PO DAILY CONSTIPATION 02/02/23 [History Last Taken 05/16/23] pantoprazole 40 mg tablet,delayed release 40 mg PO DAILY ACID REFLUX #0 tabs 02/04/23 [Rx Last Taken 05/16/23] acetaminophen 325 mg tablet 325 mg PO DAILY HEADACHE 05/17/23 [History Last Taken 05/16/23] bisacodyl 10 mg rectal suppository 10 mg [place] DAILY PRN CONSTIPATION 05/17/23 [History Last Taken Unknown] calcitriol 0.25 mcg capsule 0.25 mcg PO MOWEFR KIDNEY DISEASE 05/17/23 [History Last Taken 05/16/23] furosemide 40 mg tablet (Lasix) 40 mg PO SUTHSA FLUID 05/17/23 [History Last Taken 05/16/23] glucagon HCl 1 mg solution for injection (Glucagon (HCl) Emergency Kit) 1 mg IM Q20M PRN HYPOGLYCEMIA 05/17/23 [History Last Taken Unknown] loratadine 10 mg tablet (Allergy Relief (loratadine)) 10 mg PO QHS ALLERGIES 05/17/23 [History Last Taken 05/16/23] Allergy/AdvReac Type Severity Reaction Status Date / Time codeine Allergy Hives Verified 05/17/23 07:44 morphine Allergy Hives Verified 05/17/23 07:44 oxycodone Allergy Hives Verified 05/17/23 07:44 propoxyphene Allergy NEEDS Verified 05/17/23 07:44 FOLLOW-UP tramadol Allergy NEEDS Verified 05/17/23 07:44 FOLLOW-UP Family History Mother Diabetes Father Diabetes Surgical History H/O coronary angioplasty History of back surgery History of total left knee replacement S/p bilateral carotid endarterectomy S/P PTCA (percutaneous transluminal coronary angioplasty) Social History household members: none housing: residential Smoking Status: Never smoker alcohol intake: never substance use type: does not use ROS ROS Narrative 14 system ROS incomplete because patient has dementia and cannot recall the even t or time.. Constitutional: Reports fatigue and weakness. No fever. HEENT: No dizziness lightheadedness or vertigoReports systems reviewed and no addt'l complaints, except as documented Respiratory/Chest: No acute shortness of breath or respiratory distress or wheezing. CVS: No chest pain pressure or tightness. Gastrointestinal: Rectal bleed as described in HPI. Denies coffee ground emesis, hematemesis or vomiting Genitourinary: Denies burning urination or new urinary tract symptoms Musculoskeletal: Chronic arthritis/joint pain or limited range of motion. No acute injury Neurologic: Denies seizure-like symptoms. History of TIA no acute strokelike symptoms. skin: No ulcer. No rash Endocrinology: Reports systems reviewed and no addt'l complaints, except as documented Hematologic/Lymphatic: Reports systems reviewed and no addt'l complaints, except as documented Rest 14 ROS are negative except as mentioned in HPI Review of Systems ROS Unobtainable: due to mental condition and due to mental status Vital Signs Vital Signs Vital Signs: 05/17/23 07:44 05/17/23 08:57 05/17/23 09:57 Temperature 97.1 F L 97.3 F L Temperature Source Temporal Temporal Pulse Rate 67 71 64 Respiratory Rate 22 H 18 16 Blood Pressure 152/44 H 133/58 H 135/45 H Blood Pressure Mean 80 83 75 Blood Pressure Source Monitor Blood Pressure Position Left Lateral Blood Pressure Location Left Arm Pulse Ox 99 99 95 Oxygen Delivery Method Room Air Room Air Room Air 05/17/23 10:04 05/17/23 10:16 05/17/23 10:38 Temperature 97.3 F L 97.6 F L 98.2 F Temperature Source Temporal Temporal Oral Pulse Rate 65 68 68 Respiratory Rate 16 18 18 Blood Pressure 135/45 H 138/56 H 128/54 H Blood Pressure Mean 75 83 78 Blood Pressure Source Monitor Monitor Blood Pressure Position Supine Semi-Fowlers Blood Pressure Location Right Arm Right Arm Pulse Ox 98 98 94 Oxygen Delivery Method Room Air Room Air Weight Weight: 119 lb 0.794 oz Body Mass Index (BMI) 24.8 Physical Exam Narrative General: Alert, Oriented x3, Cooperative HEENT: Atraumatic, PERRLA, EOMI, Normocephalic Oral: Oral mucosa dry. No Gingival or Mucosal Lesions/ Ulcerations Chest/neck: Right TLC catheter in in right subclavian vein. Bilateral CEA surgical scar in neck. Supple, No JVD, Negative no carotid Bruits Lungs: Air entry diminished in bilateral lung bases. No crepitation/rhonchi Cardiovascular: Regular rate, Regular Rhythm, Normal S1, Normal S2, systolic murmur right second ICS and LLSB. Abdomen: Bowel Sounds Present, Soft, Non Tender, Non-Distended : ESRD on hemodialysis. No renal angle tenderness. No suprapubic tenderness. Extremities: No edema, Capillary Refill Less than 3 Seconds Skin: No rashes, No breakdown Musculoskeletal: No Tenderness to Palpation of Joints or Extremities ROM limited. on assisted walking device. Neurological: Cranial nerves II-XII grossly intact, DTR 2+/4, no acute focal neurological deficit Psych/Mental Status: Flat affect, anxious Results Lab / Micro Data 05/17/23 08:20 05/17/23 08:20 Labs: Laboratory Results - last 24 hr 05/17/23 08:20: WBC 9.4, RBC 1.51 L, Hgb 5.4 L*, Hct 16.7 L, MCV 110.6 H, MCH 35.8 H, MCHC 32.3, RDW Std Deviation 65.3 H, RDW Coeff of Sotero 16.7 H, Plt Count 184, MPV 11.9, Immature Gran % (Auto) 0.500, Neut % (Auto) 87.6 H, Lymph % (Auto) 6.1 L, [place] % (Auto) 5.0, Eos % (Auto) 0.5, Baso % (Auto) 0.3, Absolute Neuts (auto) 8.2 H, Absolute Lymphs (auto) 0.57 L, Nucleated RBC % 0, Diff Path Review May foll, Hypochromasia 2+, Anisocytosis 2+, PT 15.8 H, INR 1.3, APTT 36.8 H, Sodium 135 L, Potassium 4.9, Chloride 96 L, Carbon Dioxide 27.0, Anion Gap 12, BUN 75 H, Creatinine 4.61 H, Estim Creat Clear Calc 7.67, Est GFR (MDRD) Af Amer 12 L, Est GFR (MDRD) Non-Af 10 L, BUN/Creatinine Ratio 16.3, Glucose 155 H, Lactic Acid 3.3 H*, Calcium 8.9, Magnesium 1.9, Total Bilirubin 0.40, Direct Bilirubin 0.14, AST 23, ALT 20, Alkaline Phosphatase 112, Total Protein 7.0, Albumin 3.5, Globulin 3.5, Blood Type A POSITIVE, Antibody Screen NEGATIVE 05/17/23 08:36: Crossmatch See Detail Radiology Impression Abdomen/Pelvis CT 05/17/23 07:53 IMPRESSION: 1. Nonspecific periportal edema. 2. Question urinary cystitis. 3. Chronic parenchymal renal disease. 4. 3 cm saccular infrarenal abdominal aortic aneurysm. 5. Diverticulosis coli. 6. Additional nonacute findings described above. Electronically Signed: Nino Long MD at 9:08 EDT , Assessment & Plan Assessment/Plan (1) GI bleed: (2) Anemia: QUALIFIERS: Anemia type: due to chronic kidney disease Chronic kidney disease stage: on chronic dialysis Qualified Code(s): N18.6 - End stage renal disease; D63.1 - Anemia in chronic kidney disease; Z99.2 - Dependence on renal dialysis PLAN: Plan This is a 87-year-old female is being admitted to PCU from ED for rectal bleed for about 3 to 4 days along with diarrhea. 1. GI bleed most likely lower GI bleed or upper with rapid transit probably due to aspirin and Plavix: Patient is being admitted in PCU. Hemodynamically stable. Hemoglobin dropped to 5.4 from her baseline around 8.0. Last hemoglobin 9.2 on April 08 but has been around 7.5 in January 2023. Macrocytic MCV 100 and. Platelet count 184,000. Previous platelet count also on lower side about 140 in January 2023 suggestive of transient thrombocytopenia which has been resolved Patient has been ordered type and cross and 3 units of PRBC in ED. Will transfuse gradually 2 units today with regular H&H every 6 hourly. IV Protonix 40 mg every [address] Ramsay is consulted. 2. Acute blood loss anemia with history of chronic macrocytic anemia/anemia of chronic disease: As described above.Last B12 614 January 2023. Patient was 937, TIBC 179 and iron 18 in January 2023 therefore patient does not have chronic iron versus anemia. 3. ESRD on hemodialysis Friday, and Friday: Nephrology Dr. Reaves is consulted. He knows the patient from [facility]. Currently I do not see urgent need of hemodialysis but patient might need after PRBC transfusion. 4. History of Non-STEMI/coronary artery disease, TIA, PAD status post carotid endarterectomy: Patient does not have chest pain pressure or tightness.Twelve- lead EKG done in ED shows normal sinus rhythm with mild ST depression V3 to V6. Patient does not have chest pain or chest tightness. Repeat EKG. She had similar ST-T changes, ST depression from V2 to V6 and previous EKG of 02/02/2023. No acute change. Her last cath in September 2022 reported ostial LM calcified lesion, to 75%, mid LAD in-stent irregular 85% restenosis, mild circumflex, RCA ostial calcified 50%, mid RCA ectatic/aneurysmal, irregular ulcerated, diffuse plaque 75% stenosis Hold aspirin and Plavix for now. Patient had 6 months of dual antiplatelet agent therefore patient can go off Plavix. 5. History of pulmonary hypertension, pulmonary edema and bilateral pneumonia during previous admission in January 2023: No acute issues now. Echo in September 2022 showed chronic HFpEF EF 55% stage II diastolic dysfunction, RSV 79 mmHg consistent with severe pulmonary hypertension 2+ MR, 1-2+ TR VTE prophylaxis: Pharmacological contraindicated in view of active GI hemorrhage. Bilateral SCDs Living will/advanced directive/end of life care: Patient does have living will or advanced directive. After discussion of benefits/risks procedures involved with full code, DNR CC arrest and DNR CC, the patient opted for full code. Patient does want artificial life support including intubation, tube feed, ventilator and/chest compression, central venous catheter, vasopressor and DC shock if needed Total time spent in [id number] encounter in discussion of advanced directive 17 minutes. Charges/Coding Visit Charges Inpatient E&M: 15757 Init Hosp L3 Procedures Hospitalists Procedures: 63394 Advncd Care Plan 30 Min
[2023-05-17 12:23] LABS: Reflex Lactate? Y
--- NOTE | 2023-05-17 13:50 | PCM.CONS.R ---
Assessment & Plan Assessment/Plan (1) ESRD (end stage renal disease): PLAN: She appears to be well dialyzed with euvolemic status, normal electrolytes, no uremia. We will put her on the usual schedule that is being used on as outpatient, next dialysis will be Friday HPI Consult Data Date of Consult: 05/17/23 HPI Narrative Reason for Consultation: ESRD management HPI Narrative: PRASANNA VARGAS, is a 87 F who presents with GI bleeding for 3 to 4 days from long-term. She has end-stage kidney disease and dialyzed at long-term on the schedule Friday and Friday. Her last dialysis was yesterday. We are using left upper arm fistula with no issues. She is being transfused, as she is normotensive, she is got no respiratory distress, her electrolytes are fine. 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 Carotid disease, bilateral Dementia DVT (deep venous thrombosis) End stage renal disease History of left heart catheterization (LHC) (~10/18/22) Hypertension Hypothyroidism IBS (irritable bowel syndrome) Non-ST elevation PR (NSTEMI) TIA (transient ischemic attack) Home Medications aspirin 81 mg tablet,delayed release 81 mg PO DAILY HEART HEALTH 10/18/22 [History Last Taken 05/16/23] carvedilol 6.25 mg tablet 6.25 mg PO BID HEART 10/18/22 [History Last Taken 05/16/23] levothyroxine 100 mcg tablet 100 mcg PO SUSA THYROID 10/18/22 [History Last Taken 05/17/23] levothyroxine 200 mcg tablet 200 mcg PO MOTUWEFR THYROID 10/18/22 [History Last Taken 05/16/23] clopidogrel 75 mg tablet 75 mg PO DAILY BLOOD THINNER #0 tabs 10/19/22 [Rx Last Taken 05/16/23] nitroglycerin 0.4 mg sublingual tablet 0.4 mg sublingual Q5M PRN CHEST PAIN #0 tabs 10/19/22 [Rx Last Taken 02/02/23] isosorbide mononitrate 60 mg tablet,extended release 24 hr 60 mg PO DAILY BLOOD PRESSURE #90 tabs 11/11/22 [Rx Last Taken 05/16/23] acetaminophen 325 mg tablet 650 mg PO Q4H PRN PAIN 02/02/23 [History Last Taken 02/01/23] amlodipine 10 mg tablet 10 mg PO DAILY BLOOD PRESSURE 02/02/23 [History Last Taken 05/16/23] atorvastatin 20 mg tablet 20 mg PO QHS CHOLESTEROL 02/02/23 [History Last Taken 05/16/23] donepezil 10 mg tablet 10 mg PO QHS DEMENTIA 02/02/23 [History Last Taken 05/16/23] hydralazine 100 mg tablet 100 mg PO TID BLOOD PRESSURE 02/02/23 [History Last Taken 05/17/23] ondansetron HCl 4 mg tablet 4 mg PO DAILY NAUSEA 02/02/23 [History Last Taken 05/16/23] sennosides 8.6 mg tablet (senna) 8.6 mg PO DAILY CONSTIPATION 02/02/23 [History Last Taken 05/16/23] pantoprazole 40 mg tablet,delayed release 40 mg PO DAILY ACID REFLUX #0 tabs 02/04/23 [Rx Last Taken 05/16/23] acetaminophen 325 mg tablet 325 mg PO DAILY HEADACHE 05/17/23 [History Last Taken 05/16/23] bisacodyl 10 mg rectal suppository 10 mg [place] DAILY PRN CONSTIPATION 05/17/23 [History Last Taken Unknown] calcitriol 0.25 mcg capsule 0.25 mcg PO MOWEFR KIDNEY DISEASE 05/17/23 [History Last Taken 05/16/23] furosemide 40 mg tablet (Lasix) 40 mg PO SUTHSA FLUID 05/17/23 [History Last Taken 05/16/23] glucagon HCl 1 mg solution for injection (Glucagon (HCl) Emergency Kit) 1 mg IM Q20M PRN HYPOGLYCEMIA 05/17/23 [History Last Taken Unknown] loratadine 10 mg tablet (Allergy Relief (loratadine)) 10 mg PO QHS ALLERGIES 05/17/23 [History Last Taken 05/16/23] Allergy/AdvReac Type Severity Reaction Status Date / Time codeine Allergy Hives Verified 05/17/23 07:44 morphine Allergy Hives Verified 05/17/23 07:44 oxycodone Allergy Hives Verified 05/17/23 07:44 propoxyphene Allergy NEEDS Verified 05/17/23 07:44 FOLLOW-UP tramadol Allergy NEEDS Verified 05/17/23 07:44 FOLLOW-UP Family History Mother Diabetes Father Diabetes Surgical History H/O coronary angioplasty History of back surgery History of total left knee replacement S/p bilateral carotid endarterectomy S/P PTCA (percutaneous transluminal coronary angioplasty) Social History household members: none housing: long-term Smoking Status: Never smoker alcohol intake: never substance use type: does not use ROS Cardiovascular Cardiovascular: Denies chest pain, claudication, diaphoresis, dyspnea on exertion, edema, irregular heart rhythm, leg edema, orthopnea, palpitations or syncope Respiratory/Chest Respiratory/Chest: Denies dry cough, dyspnea on exertion, hemoptysis, portable oxygen @ home, productive cough, shortness of breath at rest or wheezing Gastrointestinal Gastrointestinal: Denies abdominal pain, anorexia, diarrhea, dry heaves, hematemesis, hematochezia, melena, nausea, rectal bleeding, vomiting or weight changes Genitourinary Genitourinary: Denies change in urinary stream, difficulty urinating, dribbling, dysuria, flank pain, hematuria, nocturia, oliguria, post void dribbling, urinary frequency, urinary hesitancy, urinary incontinence or urinary urgency Musculoskeletal Musculoskeletal: Denies abnormal gait, arthralgias, joint stiffness, joint swelling, muscle cramps or myalgias Integumentary Integumentary: Denies dry skin, erythema, jaundice, lesions, pruritus, rash or skin ulcer Neurologic Neurologic: Denies abnormal gait, burning sensations, confusion, focal weakness, frequent falls, headache(s), numbness, restless legs, seizures, syncope, tremor(s) or weakness Psychiatric Psychiatric: Reports confusion Endocrine Endocrinology: Denies cold intolerance, fatigue, heat intolerance, polydipsia or polyuria Hematologic/Lymphatic Hematologic/Lymphatic: Reports anemia Physical Exam Const alert, no apparent distress and average body habitus General Appearance: frail Orientation / Consciousness: oriented to person and oriented to place HEENT normocephalic Head and Scalp: atraumatic Neck no lymphadenopathy Resp no use of accessory muscles Cardio regular rate GI non-tender Auscultation: normoactive bowel sounds Palpation: soft no CVA tenderness Extremity General Extremity: AV fistula Neuro Sensorium / Orientation: awake and alert Psych cooperative Lab / Micro Data Attestation: I reviewed the patient's lab results. 05/17/23 08:20 05/17/23 08:20 Labs: Laboratory Results - last 24 hr 05/17/23 08:20: WBC 9.4, RBC 1.51 L, Hgb 5.4 L*, Hct 16.7 L, MCV 110.6 H, MCH 35.8 H, MCHC 32.3, RDW Std Deviation 65.3 H, RDW Coeff of Sotero 16.7 H, Plt Count 184, MPV 11.9, Immature Gran % (Auto) 0.500, Neut % (Auto) 87.6 H, Lymph % (Auto) 6.1 L, Leslie % (Auto) 5.0, Eos % (Auto) 0.5, Baso % (Auto) 0.3, Absolute Neuts (auto) 8.2 H, Absolute Lymphs (auto) 0.57 L, Nucleated RBC % 0, Diff Path Review May foll, Hypochromasia 2+, Anisocytosis 2+, PT 15.8 H, INR 1.3, APTT 36.8 H, Sodium 135 L, Potassium 4.9, Chloride 96 L, Carbon Dioxide 27.0, Anion Gap 12, BUN 75 H, Creatinine 4.61 H, Estim Creat Clear Calc 7.67, Est GFR (MDRD) Af Amer 12 L, Est GFR (MDRD) Non-Af 10 L, BUN/Creatinine Ratio 16.3, Glucose 155 H, Lactic Acid 3.3 H*, Calcium 8.9, Magnesium 1.9, Total Bilirubin 0.40, Direct Bilirubin 0.14, AST 23, ALT 20, Alkaline Phosphatase 112, Total Protein 7.0, Albumin 3.5, Globulin 3.5, Blood Type A POSITIVE, Antibody Screen NEGATIVE 05/17/23 08:36: Crossmatch See Detail Radiology Impression Abdomen/Pelvis CT 05/17/23 07:53 IMPRESSION: 1. Nonspecific periportal edema. 2. Question urinary cystitis. 3. Chronic parenchymal renal disease. 4. 3 cm saccular infrarenal abdominal aortic aneurysm. 5. Diverticulosis coli. 6. Additional nonacute findings described above. Electronically Signed: Nino Long MD at 9:08 EDT , Chest X-Ray 05/17/23 11:45 IMPRESSION: CHF. Satisfactory central line placement. Electronically Signed: Nino Long MD at 12:54 EDT ,
--- NOTE | 2023-05-17 14:17 | CASEMGMT ---
Addendum entered by Arline Lorenz 05/17/23 15:03: Social Work [facility] sent a message via [employer], pt can return to [facility] any time, she has a bed hold. Also they will fax over the POA papers. It is anticipated pt will be here through the weekend but a green sheet placed on chart in event pt able to return to [facility] tomorrow. MILTON Castro Original Note: Social Work SW spoke w/RN, she states it would be better to speak w/pt tomorrow, pt is out of it today. RN confirms that [facility] is her POA. We do not have documents on file however. SW called [facility], she does also confirm she is pt's POA. She states the half-way has the document, SW will ask [facility] for the POA papers. She states plan will be for pt to return to [facility] at discharge, she states pt has been there for a year. List of other SNF providers in the area not needed at this time. SW sent referral to [facility] via [employer]. SW inquired if any precert is needed, and requested that POA papers be faxed over to the hospital. SW will continue to follow for discharge back to [facility] when pt is ready. It is anticipated pt will be here through the weekend. MILTON Castro
[2023-05-17 14:29] LABS: Lactic Acid 3.4 mmol/L (0.4-1.9)
[2023-05-17] MEDS: LACTATED RINGERS 500 ML 999 ML IV (14:30)
[2023-05-17] MEDS: 0.9% Normal Saline 1,000 ML 50 ML IV (19:43)
[2023-05-17] MEDS: Bisacodyl 5 MG Tablet 20 MG PO (20:34)
[2023-05-17] MEDS: Acetaminophen 325 MG Tablet 650 MG PO (20:34)
[2023-05-17] MEDS: 0.9% Saline Lock 10 ML Syringe IV (20:37)
[2023-05-17 20:45] LABS: Hemoglobin 7.7 g/dL (12.0-15.0)
[2023-05-18] VITALS (10 sets, daily range): BP systolic 110–159; BP diastolic 38–87; PULSE 57–83; RESP 16–22; TEMP 35.7–36.8; O2SAT 91–94; BMI 25.8
[2023-05-18 04:34] LABS: Absolute Neutrophil Count 7.6 X10^3/uL (2.0-7.7); Basophil# 0.04 X10^3/uL; Basophil% 0.4 % (0-1); Eosinophil# 0.04 X10^3/uL; Eosinophils% 0.4 % (0-5); Hematocrit 21.4 % (37-47); Hemoglobin 6.9 g/dL (12.0-15.0); Lymphocyte % 8.7 % (19-41); Mean Corp Hgb Conc 32.2 g/dL (32-36); Mean Corpuscular Hgb 30.9 pg (27.0-32.0); Mean Platelet Vol. 11.3 fl (6.2-12.0); Monocyte# 0.65 X10^3/uL; Monocyte% 7.1 % (0-10); NRBC Flagged by Analyzer 0.2 % (0-5); Neutrophil # 7.62 X10^3/uL (2.7-7.7); POSITIVE MORPHOLOGY YES; Platelet Count 158 K/mm3 (150-450); RBC Distribution Width CV 24.6 % (11.6-14.6); RBC Distribution Width SD 79.7 fl (35.1-43.9); Red Blood Count 2.23 M/mm3 (4.2-5.4); White Blood Count 9.2 K/mm3 (4.4-11.0)
[2023-05-18 04:44] LABS: Differential Indicated SCAN CRITERIA MET
[2023-05-18 04:50] LABS: Anion Gap 11 (5-15); BUN 91 mg/dL (7-18); BUN/Creat Ratio 16.4 RATIO (10-20); Calcium,Total 8.3 mg/dL (8.5-10.1); Chloride 100 mmol/L (98-107); Creatinine, Serum 5.54 mg/dL (0.55-1.02); EST Glomerular Filtration Rate 8 mL/min (>60); Est Glom Filt Rate - Afr Amer 9 mL/min (>60); Glucose 101 mg/dL (74-106); Potassium 5.5 mmol/L (3.5-5.1); Sodium Level 137 mmol/L (136-145)
[2023-05-18 04:52] LABS: Differential Comment SCANNED; Macrocytosis 1+; Microcytosis 1+
[2023-05-18 04:53] LABS: Polychromasia 1+
[2023-05-18 04:54] LABS: Anisocytosis 2+
--- NOTE | 2023-05-18 07:58 | PN.HOSP_ITS ---
Reason for Visit Reason for Visit: Diagnoses Anemia in chronic kidney disease (05/17/23) Gastrointestinal hemorrhage, unspecified (05/17/23) End stage renal disease (05/17/23) Dependence on renal dialysis (05/17/23) Subjective Subjective Follow-up for GI bleed and multiple other chronic disease including CAD and ESRD Objective Data Objective Data Vital Signs: Vital Signs Temp Pulse Resp BP Pulse Ox O2 Del Method 98.1 F 65 20 H 135/76 H 91 Room Air 05/18/23 03:28 05/18/23 03:28 05/18/23 03:28 05/18/23 03:28 05/18/23 07:34 05/18/23 07:34 Oxygen Delivery Method Room Air Weight: 123 lb 7.342 oz Body Mass Index (BMI) 25.8 Intake & Output: Intake and Output for Last 24 Hours 05/16/23 05/17/23 05/18/23 23:59 23:59 23:59 Intake Total 900 / 900 Output Total 0 / 0 Balance 900 / 900 Lab / Micro Data 05/18/23 04:10 05/18/23 04:10 Labs: Laboratory Results - last 24 hr 05/17/23 08:20: WBC 9.4, RBC 1.51 L, Hgb 5.4 L*, Hct 16.7 L, MCV 110.6 H, MCH 35.8 H, MCHC 32.3, RDW Std Deviation 65.3 H, RDW Coeff of [place]otero 16.7 H, Plt Count 184, MPV 11.9, Immature Gran % (Auto) 0.500, Neut % (Auto) 87.6 H, Lymph % (Auto) 6.1 L, [place] % (Auto) 5.0, Eos % (Auto) 0.5, Baso % (Auto) 0.3, Absolute Neuts (auto) 8.2 H, Absolute Lymphs (auto) 0.57 L, Nucleated RBC % 0, Diff Path Review May foll, Hypochromasia 2+, Anisocytosis 2+, PT 15.8 H, INR 1.3, APTT 36.8 H, Sodium 135 L, Potassium 4.9, Chloride 96 L, Carbon Dioxide 27.0, Anion Gap 12, BUN 75 H, Creatinine 4.61 H, Estim Creat Clear Calc 7.67, Est GFR (MDRD) Af Amer 12 L, Est GFR (MDRD) Non-Af 10 L, BUN/Creatinine Ratio 16.3, Glucose 155 H, Lactic Acid 3.3 H*, Calcium 8.9, Magnesium 1.9, Total Bilirubin 0.40, Direct Bilirubin 0.14, AST 23, ALT 20, Alkaline Phosphatase 112, Total Protein 7.0, Albumin 3.5, Globulin 3.5, Blood Type A POSITIVE, Antibody Screen NEGATIVE 05/17/23 08:36: Crossmatch See Detail 05/17/23 12:55: Lactic Acid 3.4 H* 05/17/23 16:17: Hgb 6.0 L*, Hct 18.0 L 05/17/23 20:30: Hgb 7.7 L, Hct 23.0 L 05/18/23 04:10: WBC 9.2, RBC 2.23 L, Hgb 6.9 L, Hct 21.4 L, MCV 96.0 D, MCH 30.9, MCHC 32.2, RDW Std Deviation 79.7 H, RDW Coeff of [place]ot[place] 24.6 H, Plt Count 158, MPV 11.3, Immature Gran % (Auto) 0.400, Neut % (Auto) 83.0 H, Lymph % (Auto) 8.7 L, [place] % (Auto) 7.1, Eos % (Auto) 0.4, Baso % (Auto) 0.4, Absolute Neuts (auto) 7.6, Absolute Lymphs (auto) 0.80 L, Nucleated RBC % 0.2, Differential Comment SCANNED, Polychromasia 1+, Anisocytosis 2+, Microcytosis 1+, Macrocytosis 1+, Sodium 137, Potassium 5.5 H, Chloride 100, Carbon Dioxide 26.0, Anion Gap 11, BUN 91 H, Creatinine 5.54 H, Estim Creat Clear Calc 6.10, Est GFR (MDRD) Af Amer 9 L, Est GFR (MDRD) Non-Af 8 L, BUN/Creatinine Ratio 16.4, Glucose 101, Calcium 8.3 L Radiography Diagnostic Testing: Radiology Impression Abdomen/Pelvis CT 05/17/23 07:53 IMPRESSION: 1. Nonspecific periportal edema. 2. Question urinary cystitis. 3. Chronic parenchymal renal disease. 4. 3 cm saccular infrarenal abdominal aortic aneurysm. 5. Diverticulosis coli. 6. Additional nonacute findings described above. Electronically Signed: Nino Long MD at 9:08 EDT , Chest X-Ray 05/17/23 11:45 IMPRESSION: CHF. Satisfactory central line placement. Electronically Signed: Nino Long MD at 12:54 EDT , Physical Exam Narrative Seen and examined. 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 After that she came back to her normal senses and felt sorry that she removed the TLC catheter. No bleeding or hematoma at the TMC catheter site/right subclavian region. Heart rate and BP normal range. Physical exam: General: Alert, Oriented x3, Cooperative HEENT: Atraumatic, PERRLA, EOMI, Normocephalic Oral: Oral mucosa moist. No Gingival or Mucosal Lesions/ Ulcerations Chest/neck: No hematoma at site of right subclavian region. Bilateral CEA surgical scar in neck. Supple, No JVD, Negative no carotid Bruits Lungs: Air entry diminished in bilateral lung bases. No crepitation/rhonchi Cardiovascular: Regular rate, Regular Rhythm, Normal S1, Normal S2, systolic murmur right second ICS and LLSB. Abdomen: Bowel Sounds Present, Soft, Non Tender, Non-Distended : ESRD on hemodialysis. No renal angle tenderness. No suprapubic tenderness. Extremities: No edema, Capillary Refill Less than 3 Seconds Skin: No rashes, No breakdown Musculoskeletal: No Tenderness to Palpation of Joints or Extremities ROM limited. on assisted walking device. Neurological: Cranial nerves II-XII grossly intact, DTR 2+/4, no acute focal neurological deficit Psych/Mental Status: Flat affect, moderate dementia. Assessment & Plan Assessment/Plan (1) GI bleed: (2) Anemia: QUALIFIERS: Anemia type: due to chronic kidney disease Chronic kidney disease stage: on chronic dialysis Qualified Code(s): N18.6 - End stage renal disease; D63.1 - Anemia in chronic kidney disease; Z99.2 - Dependence on renal dialysis PLAN: Plan This is a 87-year-old female is being admitted to PCU from ED for rectal bleed for about 3 to 4 days along with diarrhea. 1. GI bleed most likely lower GI bleed or upper with rapid transit probably due to aspirin and Plavix: Patient is being admitted in PCU. Hemodynamically stable. Hemoglobin dropped to 5.4 from her baseline around 8.0. Last hemoglobin 9.2 on April 08 but has been around 7.5 in January 2023. Macrocytic MCV 100 and. Platelet count 184,000. Previous platelet count also on lower side about 140 in January 2023 suggestive of transient thrombocytopenia which has been resolved Patient has been ordered type and cross and 3 units of PRBC in ED. Will transfuse gradually 2 units today with regular H&H every 6 hourly. IV Protonix 40 mg every [address] Ramsay is consulted. 05/18: Patient accidentally removed her right subclavian catheter because she was confused and disoriented in the morning. Currently she is back to her normal senses oriented and she felt sorry. Midline ordered. Patient is well resuscitated and hemodynamically stable and does not have acute IV needed and can wait for midline. Seen by straight cutter. Had 2 units of PRBC transfusion. Hemoglobin improved to 7.7 then again dropped to 6.9. Patient can have third unit of PRBC after midline along with Lasix 40 mg IV. Plan for EGD and colonoscopy tomorrow AM. Colon prep to start today 2. Acute blood loss anemia with history of chronic macrocytic anemia/anemia of chronic disease: As described above.Last B12 614 January 2023. Patient was 937, TIBC 179 and iron 18 in January 2023 therefore patient does not have chronic iron versus anemia. 05/18: As mentioned above. 3. ESRD on hemodialysis Friday, and Friday: Nephrology Dr. Reaves is consulted. He knows the patient from [facility]. Currently I do not see urgent need of hemodialysis but patient might need after PRBC transfusion. 05/18: Patient was seen by straight cutter yesterday. No acute need for dialysis. She will be on her usual dialysis schedule, next on Friday, probably for EGD and colonoscopy. Mild hyperkalemia, K 5.5 but seems well compensated. 4. History of Non-STEMI/coronary artery disease, TIA, PAD status post carotid endarterectomy: Patient does not have chest pain pressure or tightness.Twelve- lead EKG done in ED shows normal sinus rhythm with mild ST depression V3 to V6. Patient does not have chest pain or chest tightness. Repeat EKG. She had zahira lar ST-T changes, ST depression from V2 to V6 and previous EKG of 02/02/2023. No acute change. Her last cath in September 2022 reported ostial LM calcified lesion, to 75%, mid LAD in-stent irregular 85% restenosis, mild circumflex, RCA ostial calcified 50%, mid RCA ectatic/aneurysmal, irregular ulcerated, diffuse plaque 75% stenosis Hold aspirin and Plavix for now. Patient had 6 months of dual antiplatelet agent therefore patient can go off Plavix. 5. History of pulmonary hypertension, pulmonary edema and bilateral pneumonia during previous admission in January 2023: No acute issues now. Echo in September 2022 showed chronic HFpEF EF 55% stage II diastolic dysfunction, RSV 79 mmHg consistent with severe pulmonary hypertension 2+ MR, 1-2+ TR VTE prophylaxis: Pharmacological contraindicated in view of active GI hemorrhage. Bilateral SCDs Living will/advanced directive/end of life care: Patient does have living will or advanced directive. After discussion of benefits/risks procedures involved with full code, DNR CC arrest and DNR CC, the patient opted for full code. Patient does want artificial life support including intubation, tube feed, ventilator and/chest compression, central venous catheter, vasopressor and DC shock if needed Total time spent in [id number] encounter in discussion of advanced directive 17 minutes. Laboratory Results 05/17/23 08:36: Crossmatch See Detail 05/17/23 12:55: Lactic Acid 3.4 H* 05/17/23 16:17: Hgb 6.0 L*, Hct 18.0 L 05/17/23 20:30: Hgb 7.7 L, Hct 23.0 L 05/18/23 04:10: WBC 9.2, RBC 2.23 L, Hgb 6.9 L, Hct 21.4 L, MCV 96.0 D, MCH 30.9, MCHC 32.2, RDW Std Deviation 79.7 H, RDW Coeff of Sotero 24.6 H, Plt Count 158, MPV 11.3, Immature Gran % (Auto) 0.400, Neut % (Auto) 83.0 H, Lymph % (Auto) 8.7 L, [place] % (Auto) 7.1, Eos % (Auto) 0.4, Baso % (Auto) 0.4, Absolute Neuts (auto) 7.6, Absolute Lymphs (auto) 0.80 L, Nucleated RBC % 0.2, Differential Comment SCANNED, Polychromasia 1+, Anisocytosis 2+, Microcytosis 1+, Macrocytosis 1+, Sodium 137, Potassium 5.5 H, Chloride 100, Carbon Dioxide 26.0, Anion Gap 11, BUN 91 H, Creatinine 5.54 H, Estim Creat Clear Calc 6.10, Est GFR (MDRD) Af Amer 9 L, Est GFR (MDRD) Non-Af 8 L, BUN/Creatinine Ratio 16.4, Glucose 101, Calcium 8.3 L Charges/Coding Visit Charges Inpatient E&M: 57539 Subs Hosp L2
--- NOTE | 2023-05-18 10:58 | EX.PCM.CON.G ---
HPI Consult Data Date of Consult: 05/18/23 HPI Narrative Reason for Consultation: Anemia and GI bleed HPI Narrative: PRASANNA VARGAS, is a 87 F who presents via EMS secondary to GI bleed. She was sent from [facility] with GI symptoms the past couple of days. Patient states she thought she has been having some diarrhea. She denies significant abdominal pain. She also complains of cough with phlegm that has been ongoing for quite some time. Patient is unsure if or when she last had a colonoscopy. She had a recent non-ST elevated myocardial infarction. She had an echocardiogram on 10/18/2022 that showed ejection fraction of 55%, mild concentric LVH, stage II diastolic dysfunction, moderately enlarged left atrium, moderate mitral valve insufficiency, mild?moderate tricuspid valve insufficiency, and an RVSP of 79 mmHg. Heart cath station on 10/18/2022 showed [place] multivessel coronary artery disease. Case was reviewed and consideration for tertiary center for CABG versus high risk PCI of the LM/LAD and RCA was discussed. This plan was reviewed with patient and her POA and it was decided to proceed with conservative medical management. She also has a past medical history of coronary PCI, carotid artery disease, hypertension, hyperlipidemia, end-stage renal disease with chronic hemodialysis (4 days a week), anemia, dementia, and IVC filter placement. I was called for management of GI bleed and acute blood loss anemia. [facility] Medical History Acute electrocardiogram changes Anemia Anemia in chronic kidney disease Asthma Atherosclerotic heart disease Atherosclerotic heart disease of [place] coronary artery without angina pectoris Carotid disease, bilateral Dementia DVT (deep venous thrombosis) End stage renal disease History of left heart catheterization (LHC) (~10/18/22) Hypertension Hypothyroidism IBS (irritable bowel syndrome) Non-ST elevation NH (NSTEMI) TIA (transient ischemic attack) Home Medications aspirin 81 mg tablet,delayed release 81 mg PO DAILY HEART HEALTH 10/18/22 [History Last Taken 05/16/23] carvedilol 6.25 mg tablet 6.25 mg PO BID HEART 10/18/22 [History Last Taken 05/16/23] levothyroxine 100 mcg tablet 100 mcg PO SUSA THYROID 10/18/22 [History Last Taken 05/17/23] levothyroxine 200 mcg tablet 200 mcg PO MOTUWEFR THYROID 10/18/22 [History Last Taken 05/16/23] clopidogrel 75 mg tablet 75 mg PO DAILY BLOOD THINNER #0 tabs 10/19/22 [Rx Last Taken 05/16/23] nitroglycerin 0.4 mg sublingual tablet 0.4 mg sublingual Q5M PRN CHEST PAIN #0 tabs 10/19/22 [Rx Last Taken 02/02/23] isosorbide mononitrate 60 mg tablet,extended release 24 hr 60 mg PO DAILY BLOOD PRESSURE #90 tabs 11/11/22 [Rx Last Taken 05/16/23] acetaminophen 325 mg tablet 650 mg PO Q4H PRN PAIN 02/02/23 [History Last Taken 02/01/23] amlodipine 10 mg tablet 10 mg PO DAILY BLOOD PRESSURE 02/02/23 [History Last Taken 05/16/23] atorvastatin 20 mg tablet 20 mg PO QHS CHOLESTEROL 02/02/23 [History Last Taken 05/16/23] donepezil 10 mg tablet 10 mg PO QHS DEMENTIA 02/02/23 [History Last Taken 05/16/23] hydralazine 100 mg tablet 100 mg PO TID BLOOD PRESSURE 02/02/23 [History Last Taken 05/17/23] ondansetron HCl 4 mg tablet 4 mg PO DAILY NAUSEA 02/02/23 [History Last Taken 05/16/23] sennosides 8.6 mg tablet (senna) 8.6 mg PO DAILY CONSTIPATION 02/02/23 [History Last Taken 05/16/23] pantoprazole 40 mg tablet,delayed release 40 mg PO DAILY ACID REFLUX #0 tabs 02/04/23 [Rx Last Taken 05/16/23] acetaminophen 325 mg tablet 325 mg PO DAILY HEADACHE 05/17/23 [History Last Taken 05/16/23] bisacodyl 10 mg rectal suppository 10 mg [place] DAILY PRN CONSTIPATION 05/17/23 [History Last Taken Unknown] calcitriol 0.25 mcg capsule 0.25 mcg PO MOWEFR KIDNEY DISEASE 05/17/23 [History Last Taken 05/16/23] furosemide 40 mg tablet (Lasix) 40 mg PO SUTHSA FLUID 05/17/23 [History Last Taken 05/16/23] glucagon HCl 1 mg solution for injection (Glucagon (HCl) Emergency Kit) 1 mg IM Q20M PRN HYPOGLYCEMIA 05/17/23 [History Last Taken Unknown] loratadine 10 mg tablet (Allergy Relief (loratadine)) 10 mg PO QHS ALLERGIES 05/17/23 [History Last Taken 05/16/23] Allergy/AdvReac Type Severity Reaction Status Date / Time codeine Allergy Hives Verified 05/17/23 07:44 morphine Allergy Hives Verified 05/17/23 07:44 oxycodone Allergy Hives Verified 05/17/23 07:44 propoxyphene Allergy NEEDS Verified 05/17/23 07:44 FOLLOW-UP tramadol Allergy NEEDS Verified 05/17/23 07:44 FOLLOW-UP Family History Mother Diabetes Father Diabetes Surgical History H/O coronary angioplasty History of back surgery History of total left knee replacement S/p bilateral carotid endarterectomy S/P PTCA (percutaneous transluminal coronary angioplasty) Social History household members: none housing: shelter Smoking Status: Never smoker alcohol intake: never substance use type: does not use ROS Cardiovascular Cardiovascular: Denies chest pain, claudication, diaphoresis, dyspnea on exertion, edema, irregular heart rhythm, leg edema, orthopnea, palpitations or syncope Respiratory/Chest Respiratory/Chest: Denies dry cough, dyspnea on exertion, hemoptysis, portable oxygen @ home, productive cough, shortness of breath at rest or wheezing Gastrointestinal Gastrointestinal: Denies abdominal pain, anorexia, diarrhea, dry heaves, hematemesis, hematochezia, melena, nausea, rectal bleeding, vomiting or weight changes Genitourinary Genitourinary: Denies change in urinary stream, difficulty urinating, dribbling, dysuria, flank pain, hematuria, nocturia, oliguria, post void dribbling, urinary frequency, urinary hesitancy, urinary incontinence or urinary urgency Musculoskeletal Musculoskeletal: Denies abnormal gait, arthralgias, joint stiffness, joint swelling, muscle cramps or myalgias Integumentary Integumentary: Denies dry skin, erythema, jaundice, lesions, pruritus, rash or skin ulcer Neurologic Neurologic: Denies abnormal gait, burning sensations, confusion, focal weakness, frequent falls, headache(s), numbness, restless legs, seizures, syncope, tremor(s) or weakness Psychiatric Psychiatric: Reports confusion Endocrine Endocrinology: Denies cold intolerance, fatigue, heat intolerance, polydipsia or polyuria Hematologic/Lymphatic Hematologic/Lymphatic: Reports anemia Physical Exam Narrative General: Alert, Oriented x3, Cooperative HEENT: Atraumatic, PERRLA, EOMI, Normocephalic Oral: Oral mucosa dry. No Gingival or Mucosal Lesions/ Ulcerations Chest/neck: Right TLC catheter in in right subclavian vein. Bilateral CEA surgical scar in neck. Supple, No JVD, Negative no carotid Bruits Lungs: Air entry diminished in bilateral lung bases. No crepitation/rhonchi Cardiovascular: Regular rate, Regular Rhythm, Normal S1, Normal S2, systolic murmur right second ICS and LLSB. Abdomen: Bowel Sounds Present, Soft, Non Tender, Non-Distended : ESRD on hemodialysis. No renal angle tenderness. No suprapubic tenderness. Extremities: No edema, Capillary Refill Less than 3 Seconds Skin: No rashes, No breakdown Musculoskeletal: No Tenderness to Palpation of Joints or Extremities ROM limited. on assisted walking device. Neurological: Cranial nerves II-XII grossly intact, DTR 2+/4, no acute focal neurological deficit Psych/Mental Status: Flat affect, anxious Lab / Micro Data 05/18/23 04:10 05/18/23 04:10 Labs: Laboratory Results - last 24 hr 05/17/23 08:36: Crossmatch See Detail 05/17/23 12:55: Lactic Acid 3.4 H* 05/17/23 16:17: Hgb 6.0 L*, Hct 18.0 L 05/17/23 20:30: Hgb 7.7 L, Hct 23.0 L 05/18/23 04:10: WBC 9.2, RBC 2.23 L, Hgb 6.9 L, Hct 21.4 L, MCV 96.0 D, MCH 30.9, MCHC 32.2, RDW Std Deviation 79.7 H, RDW Coeff of Sotero 24.6 H, Plt Count 158, MPV 11.3, Immature Gran % (Auto) 0.400, Neut % (Auto) 83.0 H, Lymph % (Auto) 8.7 L, [place] % (Auto) 7.1, Eos % (Auto) 0.4, Baso % (Auto) 0.4, Absolute Neuts (auto) 7.6, Absolute Lymphs (auto) 0.80 L, Nucleated RBC % 0.2, Differential Comment SCANNED, Polychromasia 1+, Anisocytosis 2+, Microcytosis 1+, Macrocytosis 1+, Sodium 137, Potassium 5.5 H, Chloride 100, Carbon Dioxide 26.0, Anion Gap 11, BUN 91 H, Creatinine 5.54 H, Estim Creat Clear Calc 6.10, Est GFR (MDRD) Af Amer 9 L, Est GFR (MDRD) Non-Af 8 L, BUN/Creatinine Ratio 16.4, Glucose 101, Calcium 8.3 L Radiology Impression Chest X-Ray 05/17/23 11:45 IMPRESSION: CHF. Satisfactory central line placement. Electronically Signed: Nino Long MD at 12:54 EDT , Assessment & Plan Assessment/Plan (1) Anemia: QUALIFIERS: Anemia type: due to chronic kidney disease Chronic kidney disease stage: on chronic dialysis Qualified Code(s): N18.6 - End stage renal disease; D63.1 - Anemia in chronic kidney disease; Z99.2 - Dependence on renal dialysis (2) GI bleed: QUALIFIERS: GI bleed type/associated pathology: unspecified gastrointestinal hemorrhage type Qualified Code(s): K92.2 - Gastrointestinal hemorrhage, unspecified PLAN: Plan 87-year-old with calm disease including CAD status post non-ST segment elevation NH status post cardiac catheterization, status post history of PE with IVC filter placement, end-stage renal disease on hemodialysis Friday who presents with worsening abdominal pain and GI bleed. Acute GI bleed from unknown cause. Could be upper GI bleed with rapid transit versus lower GI bleed. She has a history of chronic microcytic anemia. She should undergo an upper and lower endoscopy. She was explained alternatives, risk, benefits include not withstanding bleeding, infection, sepsis, perforation, need for emergent surgery . She will have an ASA of 3. Charges/Coding Visit Charges Inpatient E&M: 55490 Init Hosp L3
--- NOTE | 2023-05-18 12:40 | NURSING ---
poarabella present explained egd & colonscopy to be done 05/[address] Ramsay , consent signed & witnessed
[2023-05-18] MEDS: Acetaminophen 325 MG Tablet 650 MG PO (13:21)
--- NOTE | 2023-05-18 14:10 | RAD_ITS ---
STUDY: X-RAY CHEST REASON FOR EXAM: Female, 87 years old. Line placement TECHNIQUE: Single AP portable view of the chest. COMPARISON: 05/17/2023 FINDINGS: Interval removal of right subclavian central line. Interval placement of right internal jugular central line with tip of the catheter overlying the super vena cava with no pneumothorax. The lungs are clear and expanded. There is no demonstrated pleural abnormality. There is moderate cardiac enlargement. Normal mediastinum and lara. Normal visualized pulmonary arteries. Normal visualized aortic arch and descending thoracic aorta. Normal visualized thoracic spine. Normal visualized ribs, clavicles, and shoulders. There is no demonstrated abnormality of the visualized soft tissue structures of the upper abdomen. RAD/Chest 1 View (Portable) IMPRESSION: 1. Interval removal of right subclavian central line. 2. Interval placement of right internal jugular central line with tip of the catheter overlying the super vena cava with no pneumothorax. 3. No active pulmonary disease. 4. Cardiomegaly. Electronically Signed: Alvarez Calderon MD at 14:53 EDT ,
--- NOTE | 2023-05-18 14:38 | PRO.PCM_ITS ---
Procedure Report Date of Procedure: 05/18/23 Procedure name: Ultrasound-guided right IJ central venous triple-lumen catheter insertion Indication: No peripheral IV line available. Patient pulled out right subclavian CVC catheter in the morning today as she has dementia, anxiety, was confused. Midline failed as no viable peripheral vein in upper extremity. Procedure note: Informed consent was Informed consent was taken. Indication, risk and complication explained to the patient and patient gave informed consent. Under strict aseptic precaution, right neck and upper chest was sterilized and draped. Lidocaine 1% about 3 mL was used for local anesthesia and local area was well infiltrated. As you know, patient had bilateral carotid endarterectomy surgical scar. Under ultrasound guidance, right IJ was located lateral to common carotid artery. It was compressible, with no clot, collateral or AV fistula. Right IJ was accessed through the needle under ultrasound guidance. Good blood flow was returned but patient moved her neck and lost the IJ. On second attempt, right IJ was accessed with good venous return. Under u ltrasound guidance, guidewire was passed through the lumen. Little resistance was accompanied but guidewire went through. Guidewire tract was dilated with a dilator. Triple-lumen catheter was passed over guidewire and the guidewire was removed. Good venous blood flow return in all 3 ports. TLC catheter was secured with silk 2 0. Portable chest x-ray was done and image individually reviewed. Shows the tip of TLC at right SVC/cavoatrial junction. Triple-lumen catheter is safe to use. Patient was instructed by myself and nurse, Myriam not to remove right IJ and keep her hand straight. She affirms understanding. Procedures Hospitalists Procedures: 11074 Insert Non-tunnel CV Cath (Ultrasound-guided nontunneled CVC catheter)
[2023-05-18] MEDS: Polyethylene Glycol 3350 BOWEL PREP PO (16:10)
[2023-05-18] MEDS: Furosemide 40 MG/4 ML Vial IV (17:34)
[2023-05-18] MEDS: QUEtiapine 25 MG Tablet 12.5 MG PO (20:34)
[2023-05-19] VITALS (20 sets, daily range): BP systolic 8–273; BP diastolic 31–92; PULSE 58–74; RESP 12–18; TEMP 36.2–37.4; O2SAT 93–100; BMI 26.0; BMI 25.9; BMI 25.0
[2023-05-19 08:19] LABS: Absolute Lymphocyte Count 0.93 X10^3/uL (0.83-4.51); Absolute Neutrophil Count 6.7 X10^3/uL (2.0-7.7); Basophil# 0.05 X10^3/uL; Basophil% 0.6 % (0-1); Eosinophil# 0.15 X10^3/uL; Eosinophils% 1.8 % (0-5); Hemoglobin 7.6 g/dL (12.0-15.0); Lymphocyte # 0.93 X10^3/ul (0.83-4.51); Lymphocyte % 10.9 % (19-41); Mean Corpuscular Hgb 31.8 pg (27.0-32.0); Mean Corpuscular Volume 96.2 fL (81-99); Mean Platelet Vol. 12.1 fl (6.2-12.0); Monocyte# 0.71 X10^3/uL; Monocyte% 8.3 % (0-10); NRBC Flagged by Analyzer 0.6 % (0-5); Neutrophil # 6.65 X10^3/uL (2.7-7.7); Neutrophil % 77.8 % (47-70); POSITIVE MORPHOLOGY YES; Platelet Count 146 K/mm3 (150-450); RBC Distribution Width CV 21.3 % (11.6-14.6); RBC Distribution Width SD 68.4 fl (35.1-43.9); Red Blood Count 2.39 M/mm3 (4.2-5.4); White Blood Count 8.5 K/mm3 (4.4-11.0)
[2023-05-19 08:23] LABS: Differential Indicated SCAN CRITERIA MET
[2023-05-19 08:31] LABS: International Normalized Ratio 1.5; Prothrombin Time (Protime)PT. 18.3 SECONDS (11.7-14.9)
[2023-05-19 08:40] LABS: AST(SGOT) 44 U/L (15-37); Alanine Aminotransfer ALT/SGPT 22 U/L (13-56); Albumin, Serum 2.8 g/dL (3.2-5.0); Alkaline Phosphatase 92 U/L (45-117); Anion Gap 12 (5-15); BUN 104 mg/dL (7-18); BUN/Creat Ratio 15.1 RATIO (10-20); Calcium,Total 7.7 mg/dL (8.5-10.1); Chloride 97 mmol/L (98-107); Creatinine, Serum 6.91 mg/dL (0.55-1.02); EST Glomerular Filtration Rate 6 mL/min (>60); Est Glom Filt Rate - Afr Amer 7 mL/min (>60); Estimated Creatinine Clearance 5.12 ml/min; Globulin 2.8 g/dL (2.2-4.2); Glucose 95 mg/dL (74-106); Potassium 5.3 mmol/L (3.5-5.1); Protein, Total 5.6 g/dL (6.4-8.2); Sodium Level 133 mmol/L (136-145)
--- NOTE | 2023-05-19 09:09 | CASEMGMT ---
SW sent updates to [facility] via [employer]. Plan: d/c back to [facility] Lizet DICKSON
[2023-05-19 09:11] LABS: Differential Comment SCANNED
[2023-05-19 09:12] LABS: Anisocytosis 2+; Macrocytosis 1+; Microcytosis 1+; Ovalocyte RARE; Polychromasia 1+
--- NOTE | 2023-05-19 09:43 | PN.HOSP_ITS ---
Reason for Visit Reason for Visit: Diagnoses Anemia in chronic kidney disease (05/17/23) Gastrointestinal hemorrhage, unspecified (05/17/23) End stage renal disease (05/17/23) Dependence on renal dialysis (05/17/23) Subjective Subjective Patient got a little bit confused and agitated again overnight and pulled out repeat central line Objective Data Objective Data Vital Signs: Vital Signs Temp Pulse Resp BP Pulse Ox O2 Del Method 99.4 F H 60 18 155/31 H 94 Room Air 05/19/23 08:00 05/19/23 08:00 05/19/23 08:00 05/19/23 08:00 05/19/23 08:00 05/19/23 08:00 Oxygen Delivery Method Room Air Weight: 56.5 kg Body Mass Index (BMI) 26.0 Intake & Output: Intake and Output for Last 24 Hours 05/17/23 05/18/23 05/19/23 23:59 23:59 23:59 Intake Total 900 / 900 1800 / 1800 Output Total 0 / 0 Balance 900 / 900 1800 / 1800 Lab / Micro Data 05/19/23 08:04 05/19/23 08:04 Labs: Laboratory Results - last 24 hr 05/17/23 08:36: Crossmatch See Detail 05/19/23 08:04: WBC 8.5, RBC 2.39 L, Hgb 7.6 L, Hct 23.0 L, MCV 96.2, MCH 31.8, MCHC 33.0, RDW Std Deviation 68.4 H, RDW Coeff of Sotero 21.3 H, Plt Count 146 L, MPV 12.1 H, Immature Gran % (Auto) 0.600, Neut % (Auto) 77.8 H, Lymph % (Auto) 10.9 L, [place] % (Auto) 8.3, Eos % (Auto) 1.8, Baso % (Auto) 0.6, Absolute Neuts (auto) 6.7, Absolute Lymphs (auto) 0.93, Nucleated RBC % 0.6, Differential Com ment SCANNED, Polychromasia 1+, Anisocytosis 2+, Microcytosis 1+, Macrocytosis 1+, Ovalocytes RARE, PT 18.3 H, INR 1.5, Sodium 133 L, Potassium 5.3 H, Chloride 97 L, Carbon Dioxide 24.0, Anion Gap 12, BUN 104 H*, Creatinine 6.91 H, Estim Creat Clear Calc 5.12, Est GFR (MDRD) Af Amer 7 L, Est GFR (MDRD) Non-Af 6 L, BUN/Creatinine Ratio 15.1, Glucose 95, Calcium 7.7 L, Total Bilirubin 0.40, AST 44 H, ALT 22, Alkaline Phosphatase 92, Total Protein 5.6 L, Albumin 2.8 L, Globulin 2.8, Albumin/Globulin Ratio 1.0 Radiography Diagnostic Testing: Radiology Impression Chest X-Ray 05/18/23 14:10 IMPRESSION: 1. Interval removal of right subclavian central line. 2. Interval placement of right internal jugular central line with tip of the catheter overlying the super vena cava with no pneumothorax. 3. No active pulmonary disease. 4. Cardiomegaly. Electronically Signed: Alvarez Calderon MD at 14:53 EDT , Physical Exam Narrative General: Alert, no apparent distress HEENT: Atraumatic, normocephalic Eyes: Anicteric, normal conjunctiva, extraocular movements grossly intact Neck: Supple Respiratory: Clear to auscultation bilaterally, normal respiratory effort Cardiovascular: Regular rate GI: Soft, nontender, nondistended Extremities: No edema Musculoskeletal: Moving all extremities Neuro: No overt focal neurological deficits Skin: No rashes appreciated Psych: Cooperative Assessment & Plan Assessment/Plan (1) GI bleed: QUALIFIERS: GI bleed type/associated pathology: unspecified gastrointestinal hemorrhage type Qualified Code(s): K92.2 - Gastrointestinal hemorrhage, unspecified (2) Anemia: QUALIFIERS: Anemia type: due to chronic kidney disease Chronic kidney disease stage: on chronic dialysis Qualified Code(s): N18.6 - End stage renal disease; D63.1 - Anemia in chronic kidney disease; Z99.2 - Dependence on renal dialysis PLAN: Plan This is a 87-year-old female is being admitted to PCU from ED for rectal bleed for about 3 to 4 days along with diarrhea. #GI bleed most likely lower GI bleed or upper with rapid transit probably due to aspirin and Plavix -Patient is being admitted in PCU. Hemodynamically stable. Hemoglobin dropped to 5.4 from her baseline around 8.0. Last hemoglobin 9.2 on April 08 to but has been around 7.5 in January 2023. Macrocytic MCV 100 and. Platelet count 184,000. Previous platelet count also on lower side about 140 in January 2023 suggestive of transient thrombocytopenia which has been resolved Patient has been ordered type and cross and 3 units of PRBC in ED. Will transfuse gradually 2 units today with regular H&H every 6 hourly. IV Protonix 40 mg every [address] Ramsay is consulted. 05/18: Patient accidentally removed her right subclavian catheter because she was confused and disoriented in the morning. Currently she is back to her normal senses oriented and she felt sorry. Midline ordered. Patient is well resuscitated and hemodynamically stable and does not have acute IV needed and can wait for midline. Seen by ultrasound technologist. Had 2 units of PRBC transfusion. Hemoglobin improved to 7.7 then again dropped to 6.9. Patient can have third unit of PRBC after midline along with Lasix 40 mg IV. Plan for EGD and colonoscopy tomorrow AM. Colon prep to start today -05/19: Patient for upper and lower endoscopies today, has 1 IV in her arm, pulled out her right IJ that was placed yesterday, if able to control bleeding may be able to just use peripheral. Patient awake, alert, cooperative this a.m. and said she is disappointed that she pulled out the line that she was trying to be good. 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 Patient was 937, TIBC 179 and iron 18 in January 2023 therefore patient does not have chronic iron versus anemia. 05/18: As mentioned above -05/19: Upper and lower endoscopy today #ESRD on hemodialysis Friday, and Friday -Nephrology Dr. Reaves is consulted. He knows the patient from [facility]. Currently I do not see urgent need of hemodialysis but patient might need after PRBC transfusion. 05/18: Patient was seen by ultrasound technologist yesterday. No acute need for dialysis. She will be on her usual dialysis schedule, next on Friday, probably for EGD and colonoscopy. Mild hyperkalemia, K 5.5 but seems well compensated. -05/19: Potassium 5.3 with BUN of 104 which likely exacerbates her bleeding, n ephrology following, plan for HD today #History of Non-STEMI/coronary artery disease, TIA, PAD status post carotid endarterectomy: Patient does not have chest pain pressure or tightness.Twelve- lead EKG done in ED shows normal sinus rhythm with mild ST depression V3 to V6. Patient does not have chest pain or chest tightness. Repeat EKG. She had similar ST-T changes, ST depression from V2 to V6 and previous EKG of 02/02/2023. No acute change. Her last cath in September 2022 reported ostial LM calcified lesion, to 75%, mid LAD in-stent irregular 85% restenosis, mild circumflex, RCA ostial calcified 50%, mid RCA ectatic/aneurysmal, irregular ulcerated, diffuse plaque 75% stenosis Hold aspirin and Plavix for now. Patient had 6 months of dual antiplatelet agent therefore patient can go off Plavix. -05/19: Continue to hold aspirin and Plavix #History of pulmonary hypertension, pulmonary edema and bilateral pneumonia during previous admission in January 2023 -No acute issues now. Echo in September 2022 showed chronic HFpEF EF 55% stage II diastolic dysfunction, RSV 79 mmHg consistent with severe pulmonary hypertension 2+ MR, 1-2+ TR VTE prophylaxis: Pharmacological contraindicated in view of active GI hemorrhage. Bilateral SCDs Charges/Coding Visit Charges Inpatient E&M: 95203 Subs Hosp L2
--- NOTE | 2023-05-19 10:20 | EKG12_ITS ---
Test Reason : POST OP Blood Pressure : / mmHG Vent. Rate : 065 BPM Atrial Rate : 065 BPM P-R Int : 186 ms QRS Dur : 100 ms QT Int : 460 ms P-R-T Axes : 052 012 223 degrees QTc Int : 478 ms Sinus rhythm with Premature atrial complexes Septal infarct , age undetermined ST & T wave abnormality, consider inferior ischemia ST & T wave abnormality, consider anterolateral ischemia Abnormal ECG When compared with ECG of 19-MAY-2023 10:34, MANUAL COMPARISON REQUIRED, DATA IS UNCONFIRMED Confirmed by ELIANA OCHOA, RACHNA ([id number]), metropolitan editor AMILCAR WELLINGTON ([id number]) on 05/23/2023 10:33:14 AM Referred By: Confirmed By:RACHNA MONROY MD
--- NOTE | 2023-05-19 11:00 | IMM_PTH ---
PATIENT: PRASANNA VARGAS LOC: [facility] U#:[id number] AGE/SX: 88/F ROOM: [facility] RE05/17/[address]: Dr. Aundrea Ernst MD : 1935 BED: 1 DIS: 05/21/2023 SPEC #: [id number] RECD: 05/20/23 08:57 STATUS: EVGENY REQ #: [id number] ARIA: 05/19/23 11:[address]: Eduardo Ramsay DEPT: IMMUNOHISTOCHEMISTRY RECD BY: Josie Toscano ENTERED: 05/20/23 08:58 SP TYPE: IMMUNO OTHR DR: MD Dr. Cat Salgado MD Dr. Prakash Chand, MD Dr. Paige Pierce, MD Tissues: Stomach, NOS Procedures: H Pylori (initial) PHYSICIAN & INSTITUTION [place] [id number] SPECIMEN INFORMATION: Tissue Source: Gastric ulcer Clinical Info: GI connie low Specimen Number: [id number] CPT code: 82577 METHODOLOGY: Deparaffinized sections of prefer/formalin-fixed tissue or PAP/DQ stained slides are incubated with monoclonal/polyclonal antibodies/oligonucleotide probes. Localization is made via biotin free immunoperoxidase method. Appropriate controls are performed and reacted as expected. Results on target cell population are indicated in the following table: RESULTS: ANTIBODY / CLONE RESULT H Pylori (polyclonal) negative These tests were developed and their performance characteristics determined by [facility]. They may not have been cleared or approved by the U.S. Food and Drug Administration. The FDA has determined that such clearance or approval is not necessary. The above immunohistochemical/dualISH markers are ordered and reviewed by the Pathologist. INTERPRETATION: Gastric ulcer, biopsy: Negative for Helicobacter pylori organisms. SJ:diana 05/21/2023
--- NOTE | 2023-05-19 11:00 | EGD_PTH ---
PATIENT: PRASANNA VARGAS LOC: [facility] U#:[id number] AGE/SX: 88/F ROOM: [facility] RE05/17/[address]: Dr. Aundrea Ernst MD : 1935 BED: 1 DIS: 05/21/2023 SPEC #: [id number] RECD: 05/19/23 15:58 STATUS: EVGENY HAMM #: [id number] ARIA: 05/19/23 11:[address]: Eduardo Ramsay DEPT: SURGICAL PATHOLOGY RECD BY: Blanca Tubbs ENTERED: 05/20/23 09:51 SP TYPE: EGD BIOPSY OTHR DR: MD Dr. Cat Salgado MD Dr. Prakash Chand, MD Dr. Paige Pierce, MD Tissues: Gastric mucous membrane Procedures: Surgery Specimen Level IV Comments: @ Ordering doctor for SUIV edited from to @ by JANETT at 05/20/23 1436 @ Submitting doctor edited from to @ by RGOOD at 05/20/23 143 HEADER OPERATION: Colonoscopy with cauterization and tattooing, EGD with biopsy PRE-OP DIAGNOSIS: GI bleed, anemia TISSUE SUBMITTED: Gastric ulcer MICROSCOPIC DIAGNOSIS Gastric ulcer, biopsy: Fragment of gastric mucosa with focal ulceration and acute and chronic inflammation. LIDIA:diana 05/21/2023 COMMENT The results of immunohistochemistry for Helicobacter pylori will be reported separately ([id number]). MICROSCOPIC DESCRIPTION Slides are reviewed. GROSS DESCRIPTION Received in fixative is one container labeled with the patient's name and designated gastric ulcer. The specimen consists of one irregular fragment of light kent soft tissue that measures 0.3 x 0.3 x 0.1 cm. The specimen is totally submitted in one cassette. / LIDIA:diana 05/20/2023 TC:2 CPT: 86203
[2023-05-19 11:06] LABS: Troponin-I HS 14684 pg/mL (3.0-54.0)
--- NOTE | 2023-05-19 13:44 | EKG12_ITS ---
Test Reason : PRE OP Blood Pressure : / mmHG Vent. Rate : 064 BPM Atrial Rate : 064 BPM P-R Int : 150 ms QRS Dur : 096 ms QT Int : 468 ms P-R-T Axes : 019 005 228 degrees QTc Int : 482 ms Sinus rhythm with Premature atrial complexes ST & T wave abnormality, consider inferior ischemia ST & T wave abnormality, consider anterolateral ischemia Prolonged QT Abnormal ECG When compared with ECG of 17-MAY-2023 07:59, MANUAL COMPARISON REQUIRED, DATA IS UNCONFIRMED Confirmed by ELIANA OCHOA, RACHNA ([id number]), magazine editor AMILCAR WELLINGTON ([id number]) on 05/23/2023 10:33:46 AM Referred By: Confirmed By:ARCHNA MONROY MD
[2023-05-19 14:25] LABS: Troponin-I HS 13090 pg/mL (3.0-54.0)
[2023-05-19] MEDS: PureFlow B 2K Dialysis Soln 1 BAG 6 BAG PF (15:05)
[2023-05-19] MEDS: 0.9% Normal Saline 1,000 ML IV.SOLN. 1000 ML OPERA.SITE (15:05)
[2023-05-19] MEDS: QUEtiapine 25 MG Tablet 12.5 MG PO ×2 (15:39→22:32)
[2023-05-19] MEDS: Pantoprazole Sodium 40 MG Tablet PO (15:40)
[2023-05-19] MEDS: Levothyroxine 100 MCG Tablet PO (15:40)
[2023-05-19 15:44] LABS: Pathologist Review Reviewed
--- NOTE | 2023-05-19 16:24 | OP.CCLET_ITS ---
05/19/2023 Cat Holman Md Re : Upper GI endoscopy procedure for Lyndsey Roberson Dear Dr. Holman This procedure was performed on Friday, May 19, 2023. My impressions and recommendations are as follows: Impressions : - LA Grade A reflux esophagitis. - Erythematous mucosa in the gastric body. Biopsied. - Duodenitis. Recommendations : - Return patient to hospital tee for ongoing care. - Resume previous diet. - Continue present medications. My findings are described in the full procedure note, which is enclosed. If I can be of further assistance, please feel free to contact me at . Sincerely, Eduardo Ramsay, 05/19/2023 4:23:43 PM This report has been signed electronically.
--- NOTE | 2023-05-19 16:24 | OP.EGD_ITS ---
Patient Name: Lyndsey Roberson Procedure Date: 05/19/2023 12:47 PM Date of : 1935 Age: 87 Procedure: Upper GI endoscopy Indications: Hematochezia Providers: Eduardo Ramsay DO Medicines: Monitored Anesthesia Care Patient Profile: This is an 87 year old female. Refer to note in patient chart for documentation of history and physical. Patient has symptoms of chronic dyspepsia. Complications: No immediate complications. Procedure: Pre-Anesthesia Assessment: - Prior to the procedure, a History and Physical was performed, and patient medications and allergies were reviewed. The patient is competent. The risks and benefits of the procedure and the sedation options and risks were discussed with the patient. All questions were answered and informed consent was obtained. Patient identification and proposed procedure were verified by the physician in the pre-procedure area. Mental Status Examination: alert and oriented. Airway Examination: normal oropharyngeal airway and neck mobility. Respiratory Examination: clear to auscultation. CV Examination: normal. Prophylactic Antibiotics: The patient does not require prophylactic antibiotics. Prior Anticoagulants: The patient has taken no previous anticoagulant or antiplatelet agents. ASA Grade Assessment: II - A patient with mild systemic disease. After reviewing the risks and benefits, the patient was deemed in satisfactory condition to undergo the procedure. The anesthesia plan was to use monitored anesthesia care (MAC). Immediately prior to administration of medications, the patient was re-assessed for adequacy to receive sedatives. The heart rate, respiratory rate, oxygen saturations, blood pressure, adequacy of pulmonary ventilation, and response to care were monitored throughout the procedure. The physical status of the patient was re-assessed after the procedure. After obtaining informed consent, the endoscope was passed under direct vision. Throughout the procedure, the patient's blood pressure, pulse, and oxygen saturations were monitored continuously. The pediatric colonoscope was introduced through the mouth, and advanced to the second part of duodenum. The upper GI endoscopy was accomplished without difficulty. The patient tolerated the procedure well. Scope In: 1:03:24 PM Scope Out: 1:06:04 PM Total Procedure Duration Time 0 hours 2 minutes 40 seconds Findings: LA Grade A (one or more mucosal breaks less than 5 mm, not extending between tops of 2 mucosal folds) esophagitis with no bleeding was found 37 to 39 cm from the incisors. Patchy mildly erythematous mucosa without bleeding was found in the gastric body. Biopsies were taken with a cold forceps for histology. Verification of patient identification for the specimen was done. Estimated blood loss was minimal. Patchy mild inflammation characterized by congestion (edema) was found in the duodenal bulb. Impression: - LA Grade A reflux esophagitis. - Erythematous mucosa in the gastric body. Biopsied. - Duodenitis. Recommendation: - Return patient to hospital tee for ongoing care. - Resume previous diet. - Continue present medications. Procedure Code(s): --- Professional --- 39621, Esophagogastroduodenoscopy, flexible, transoral; with biopsy, single or multiple CPT copyright 2017 [employer]. All rights reserved. The codes documented in this report are preliminary and upon invoice coder review may be revised to meet current compliance requirements. Eduardo Ramsay DO 05/19/2023 4:23:43 PM This report has been signed electronically. Number of Addenda: 0 Note Initiated On: 05/19/2023 12:47 PM
--- NOTE | 2023-05-19 16:28 | OP.CCLET_ITS ---
05/19/2023 Cat Holman Md Re : Colonoscopy procedure for Lyndsey Roberson Dear Dr. Holman This procedure was performed on Friday, May 19, 2023. My impressions and recommendations are as follows: Impressions : - Preparation of the colon was poor. - Diverticulosis in the recto-sigmoid colon, in the sigmoid colon and in the descending colon. - Blood in the entire examined colon. - A single bleeding colonic angiodysplastic lesion. Tattooed. Treated with a heater probe. - One bleeding colonic angiodysplastic lesion. Treated with argon beam coagulation. - No specimens collected. Recommendations : - Return patient to hospital tee for ongoing care. - Full liquid diet. - Continue present medications. - No repeat colonoscopy due to age. My findings are described in the full procedure note, which is enclosed. If I can be of further assistance, please feel free to contact me at . Sincerely, Eduardo Ramsay, 05/19/2023 4:27:35 PM This report has been signed electronically.
--- NOTE | 2023-05-19 16:28 | OP.COLON_ITS ---
Patient Name: Lyndsey Roberson Procedure Date: 05/19/2023 1:06 PM Date of : 1935 Age: 87 Procedure: Colonoscopy Indications: Hematochezia Providers: Eduardo Ramsay DO Medicines: Monitored Anesthesia Care Patient Profile: This is an 87 year old female. Refer to note in patient chart for documentation of history and physical. Patient has symptoms of chronic dyspepsia. Last Colonoscopy: date unknown. Unable to locate last colonoscopy report. Complications: No immediate complications. Procedure: Pre-Anesthesia Assessment: - Prior to the procedure, a History and Physical was performed, and patient medications and allergies were reviewed. The patient is competent. The risks and benefits of the procedure and the sedation options and risks were discussed with the patient. All questions were answered and informed consent was obtained. Patient identification and proposed procedure were verified by the physician in the pre-procedure area. Mental Status Examination: alert and oriented. Airway Examination: normal oropharyngeal airway and neck mobility. Respiratory Examination: clear to auscultation. CV Examination: normal. Prophylactic Antibiotics: The patient does not require prophylactic antibiotics. Prior Anticoagulants: The patient has taken no previous anticoagulant or antiplatelet agents. ASA Grade Assessment: II - A patient with mild systemic disease. After reviewing the risks and benefits, the patient was deemed in satisfactory condition to undergo the procedure. The anesthesia plan was to use monitored anesthesia care (MAC). Immediately prior to administration of medications, the patient was re-assessed for adequacy to receive sedatives. The heart rate, respiratory rate, oxygen saturations, blood pressure, adequacy of pulmonary ventilation, and response to care were monitored throughout the procedure. The physical status of the patient was re-assessed after the procedure. After I obtained informed consent, the scope was passed under direct vision. Throughout the procedure, the patient's blood pressure, pulse, and oxygen saturations were monitored continuously. The Colonoscope was introduced through the anus and advanced to the terminal ileum. The colonoscopy was performed without difficulty. The patient tolerated the procedure well. The quality of the bowel preparation was poor. Scope In: 1:08:58 PM Scope Withdrawal Time 0 hours 18 minutes 31 seconds Scope Out: 1:32:47 PM Total Procedure Duration Time 0 hours 23 minutes 49 seconds Findings: The perianal and digital rectal examinations were normal. Multiple small and large-mouthed diverticula were found in the recto-sigmoid colon, sigmoid colon and descending colon. Red blood was found in the entire colon. Lavage of the area was performed using greater than 500 mL of sterile water, resulting in clearance with fair visualization. A single large localized angiodysplastic lesion with bleeding was found at the splenic flexure. Area was tattooed with an injection of 2 mL of Flavia ink. Coagulation for hemostasis using heater probe was successful. Estimated blood loss was minimal. One large localized angiodysplastic lesion with bleeding was found in the descending colon. Coagulation for hemostasis using argon beam at 0.3 liters/minute and 30 hou was successful. Estimated blood loss was minimal. Impression: - Preparation of the colon was poor. - Diverticulosis in the recto-sigmoid colon, in the sigmoid colon and in the descending colon. - Blood in the entire examined colon. - A single bleeding colonic angiodysplastic lesion. Tattooed. Treated with a heater probe. - One bleeding colonic angiodysplastic lesion. Treated with argon beam coagulation. - No specimens collected. Recommendation: - Return patient to hospital tee for ongoing care. - Full liquid diet. - Continue present medications. - No repeat colonoscopy due to age. Procedure Code(s): --- Professional --- 76806, Colonoscopy, flexible; with control of bleeding, any method CPT copyright 2017 [employer]. All rights reserved. The codes documented in this report are preliminary and upon history faculty member review may be revised to meet current compliance requirements. Eduardo Ramsay DO 05/19/2023 4:27:35 PM This report has been signed electronically. Number of Addenda: 0 Note Initiated On: 05/19/2023 1:06 PM
[2023-05-19] MEDS: Levothyroxine 100 MCG Tablet 200 MCG PO (17:18)
[2023-05-19] MEDS: amLODIPine 10 MG Tablet PO (17:38)
[2023-05-19] MEDS: Carvedilol 6.25 MG Tablet PO (22:31)
[2023-05-19] MEDS: Atorvastatin Calcium 20 MG Tablet PO (22:32)
[2023-05-20 04:15] VITALS: BMI 26.4
[2023-05-20 04:29] VITALS: BP 137/52; PULSE 54; RESP 16; TEMP 36.8; O2SAT 94
[2023-05-20 06:08] LABS: Absolute Lymphocyte Count 0.54 X10^3/uL (0.83-4.51); Absolute Neutrophil Count 4.8 X10^3/uL (2.0-7.7); Basophil# 0.02 X10^3/uL; Basophil% 0.3 % (0-1); Eosinophil# 0.26 X10^3/uL; Eosinophils% 4.3 % (0-5); Hematocrit 26.1 % (37-47); Hemoglobin 8.9 g/dL (12.0-15.0); Lymphocyte # 0.54 X10^3/ul (0.83-4.51); Lymphocyte % 8.9 % (19-41); Mean Corp Hgb Conc 34.1 g/dL (32-36); Mean Corpuscular Hgb 32.7 pg (27.0-32.0); Mean Platelet Vol. 11.2 fl (6.2-12.0); Monocyte# 0.42 X10^3/uL; Monocyte% 6.9 % (0-10); NRBC Flagged by Analyzer 0.3 % (0-5); Neutrophil # 4.81 X10^3/uL (2.7-7.7); Neutrophil % 79.1 % (47-70); POSITIVE DIFFERENTIAL YES; POSITIVE MORPHOLOGY YES; Platelet Count 122 K/mm3 (150-450); RBC Distribution Width CV 20.5 % (11.6-14.6); Red Blood Count 2.72 M/mm3 (4.2-5.4); White Blood Count 6.1 K/mm3 (4.4-11.0)
[2023-05-20 06:09] LABS: Differential Indicated SCAN CRITERIA MET
[2023-05-20 06:31] LABS: Anion Gap 8 (5-15); BUN 74 mg/dL (7-18); BUN/Creat Ratio 12.5 RATIO (10-20); Chloride 98 mmol/L (98-107); Creatinine, Serum 5.94 mg/dL (0.55-1.02); EST Glomerular Filtration Rate 7 mL/min (>60); Est Glom Filt Rate - Afr Amer 9 mL/min (>60); Estimated Creatinine Clearance 6.01 ml/min; Glucose 87 mg/dL (74-106); Potassium 4.5 mmol/L (3.5-5.1); Sodium Level 132 mmol/L (136-145)
[2023-05-20 06:36] LABS: Anisocytosis 1+; Differential Comment SCANNED; Polychromasia 1+
[2023-05-20] MEDS: Levothyroxine 100 MCG Tablet 200 MCG PO (06:44)
[2023-05-20 07:48] VITALS: O2SAT 94
[2023-05-20 08:22] VITALS: BP 147/42; PULSE 52; RESP 16; TEMP 36.3; O2SAT 98
--- NOTE | 2023-05-20 13:48 | PCM.PN.REN ---
Subjective Subjective Resting in bed, no complaints. Objective Data Objective Data Vital Signs: Vital Signs Temp Pulse Resp BP Pulse Ox O2 Del Method O2 Flow Rate 97.3 F L 52 L 16 147/42 H 98 Room Air 4 05/20/23 08:22 05/20/23 08:22 05/20/23 08:22 05/20/23 08:22 05/20/23 08:22 05/20/23 08:22 05/19/23 12:08 Oxygen Flow Rate (L/min) 4 Oxygen Delivery Method Room Air Weight: 57.1 kg Body Mass Index (BMI) 26.4 Intake & Output: Intake and Output for Last 24 Hours 05/18/23 05/19/23 05/20/23 23:59 23:59 23:59 Intake Total 1800 / 1800 240 / 240 Output Total 1900 / 1900 Balance 1800 / 1800 -1660 / -1660 Lab / Micro Data 05/20/23 05:35 05/20/23 05:35 Labs: Laboratory Results - last 24 hr 05/17/23 08:20: Diff Path Review Reviewed 05/19/23 13:55: Troponin I High Sens 31939 H* 05/20/23 05:35: WBC 6.1, RBC 2.72 L, Hgb 8.9 L, Hct 26.1 L, MCV 96.0, MCH 32.7 H, MCHC 34.1, RDW Std Deviation 62.0 H, RDW Coeff of Sotero 20.5 H, Plt Count 122 L, MPV 11.2, Immature Gran % (Auto) 0.500, Neut % (Auto) 79.1 H, Lymph % (Auto) 8.9 L, [place] % (Auto) 6.9, Eos % (Auto) 4.3, Baso % (Auto) 0.3, Absolute Neuts (auto) 4.8, Absolute Lymphs (auto) 0.54 L, Nucleated RBC % 0.3, Differential Comment SCANNED, Polychromasia 1+, Anisocytosis 1+, Sodium 132 L, Potassium 4.5, Chloride 98, Carbon Dioxide 26.0, Anion Gap 8, BUN 74 H, Creatinine 5.94 H, Estim Creat Clear Calc 6.01, Est GFR (MDRD) Af Amer 9 L, Est GFR (MDRD) Non-Af 7 L, BUN/Creatinine Ratio 12.5, Glucose 87, Calcium 8.0 L Physical Exam Narrative alert and oriented x3 S1 S2 RRR LS CTA Abdomen soft, non-tender no edema AVF Left UA +thrill and bruit Assessment & Plan Assessment/Plan (1) ESRD (end stage renal disease): PLAN: - ESRD on HD at [facility] /// schedule. Dialyzed yesterday on 2k bath with ~1.7L UF. 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 - acute on chronic anemia; EGD and C-scope yesterday: found esophagitis/duodenitis and biopsied erythematous mucosa in gastric body; bleeding colonic lesion treated with argon beam coagulation. Hgb improved s/p PRBC; hgb was 5.4 on admission, now 8.9. Patient will also receive HARVINDER and iron with HD - bps acceptable on coreg and norvasc
[2023-05-20 14:02] VITALS: BP 146/51; PULSE 54; RESP 16; TEMP 36.8; O2SAT 95
[2023-05-20] MEDS: amLODIPine 10 MG Tablet PO (14:05)
[2023-05-20] MEDS: Pantoprazole Sodium 40 MG Tablet PO ×2 (14:05→21:03)
--- NOTE | 2023-05-20 14:07 | PCM.PN.HOSP ---
Reason for Visit Reason for Visit: Diagnoses Anemia in chronic kidney disease (05/17/23) Gastrointestinal hemorrhage, unspecified (05/17/23) End stage renal disease (05/17/23) Dependence on renal dialysis (05/17/23) Subjective Subjective Feeling better this morning than previous, beginning to eat better Objective Data Objective Data Vital Signs: Vital Signs Temp Pulse Resp BP Pulse Ox O2 Del Method O2 Flow Rate 98.3 F 54 L 16 146/51 H 95 Room Air 4 05/20/23 14:02 05/20/23 14:02 05/20/23 14:02 05/20/23 14:02 05/20/23 14:02 05/20/23 14:02 05/19/23 12:08 Oxygen Flow Rate (L/min) 4 Oxygen Delivery Method Room Air Weight: 57.1 kg Body Mass Index (BMI) 26.4 Intake & Output: Intake and Output for Last 24 Hours 05/18/23 05/19/23 05/20/23 23:59 23:59 23:59 Intake Total 1800 / 1800 240 / 240 Output Total 1900 / 1900 Balance 1800 / 1800 -1660 / -1660 Lab / Micro Data 05/20/23 05:35 05/20/23 05:35 Labs: Laboratory Results - last 24 hr 05/17/23 08:20: Diff Path Review Reviewed 05/19/23 13:55: Troponin I [place] Sens 48264 H* 05/20/23 05:35: WBC 6.1, RBC 2.72 L, Hgb 8.9 L, Hct 26.1 L, MCV 96.0, MCH 32.7 H, MCHC 34.1, RDW Std Deviation 62.0 H, RDW Coeff of Sotero 20.5 H, Plt Count 122 L, MPV 11.2, Immature Gran % (Auto) 0.500, Neut % (Auto) 79.1 H, Lymph % (Auto) 8.9 L, [place] % (Auto) 6.9, Eos % (Auto) 4.3, Baso % (Auto) 0.3, Absolute Neuts (auto) 4.8, Absolute Lymphs (auto) 0.54 L, Nucleated RBC % 0.3, Differential Comment SCANNED, Polychromasia 1+, Anisocytosis 1+, Sodium 132 L, Potassium 4.5, Chloride 98, Carbon Dioxide 26.0, Anion Gap 8, BUN 74 H, Creatinine 5.94 H, Estim Creat Clear Calc 6.01, Est GFR (MDRD) Af Amer 9 L, Est GFR (MDRD) Non-Af 7 L, BUN/Creatinine Ratio 12.5, Glucose 87, Calcium 8.0 L Physical Exam Narrative General: Alert, no apparent distress HEENT: Atraumatic, normocephalic Eyes: Anicteric, normal conjunctiva, extraocular movements grossly intact Neck: Supple Respiratory: Clear to auscultation bilaterally, normal respiratory effort Cardiovascular: Regular rate GI: Soft, nontender, nondistended Extremities: No edema Musculoskeletal: Moving all extremities Neuro: No overt focal neurological deficits Skin: No rashes appreciated Psych: Cooperative Assessment & Plan Assessment/Plan (1) GI bleed: QUALIFIERS: GI bleed type/associated pathology: unspecified gastrointestinal hemorrhage type Qualified Code(s): K92.2 - Gastrointestinal hemorrhage, unspecified (2) Anemia: QUALIFIERS: Anemia type: due to chronic kidney disease Chronic kidney disease stage: on chronic dialysis Qualified Code(s): N18.6 - End stage renal disease; D63.1 - Anemia in chronic kidney disease; Z99.2 - Dependence on renal dialysis PLAN: Plan This is a 87-year-old female is being admitted to PCU from ED for rectal bleed for about 3 to 4 days along with diarrhea. #GI bleed- secondary to colonic angiodysplastic lesion, reflux esophagitis, duodenitis and also had erythematous mucosa in the gastric body -Patient is being admitted in PCU. Hemodynamically stable. Hemoglobin dropped to 5.4 from her baseline around 8.0. Last hemoglobin 9.2 on April 08 to but has been around 7.5 in January 2023. Macrocytic MCV 100 and. Platelet count 184,000. Previous platelet count also on lower side about 140 in January 2023 suggestive of transient thrombocytopenia which has been resolved Patient has been ordered type and cross and 3 units of PRBC in ED. Will transfuse gradually 2 units today with regular H&H every 6 hourly. IV Protonix 40 mg every [address] Ramsay is consulted. 05/18: Patient accidentally removed her right subclavian catheter because she was confused and disoriented in the morning. Currently she is back to her normal senses oriented and she felt sorry. Midline ordered. Patient is well resuscitated and hemodynamically stable and does not have acute IV needed and can wait for midline. Seen by senior product designer. Had 2 units of PRBC transfusion. Hemoglobin improved to 7.7 then again dropped to 6.9. Patient can have third unit of PRBC after midline along with Lasix 40 mg IV. Plan for EGD and colonoscopy tomorrow AM. Colon prep to start today -05/19: Patient for upper and lower endoscopies today, has 1 IV in her arm, pulled out her right IJ that was placed yesterday, if able to control bleeding may be able to just use peripheral. Patient awake, alert, cooperative this a.m. and said she is disappointed that she pulled out the line that she was trying to be good. -05/20: EGD: - LA Grade A reflux esophagitis. Erythematous mucosa in the gastric body. Duodenitis. Colonoscopy: Blood in the entire examined colon. A single bleeding colonic angiodysplastic lesion. Tattooed. Treated with a heater probe. Continue present management, patient on full liquid diet. Advance per GI recommendations. Hemoglobin stable today. #Acute blood loss anemia with history of chronic macrocytic anemia/anemia of chronic disease -As described above.Last B12 614 January 2023. Patient was 937, TIBC 179 and iron 18 in January 2023 therefore patient does not have chronic iron versus anemia. 05/18: As mentioned above -05/19: Upper and lower endoscopy today -05/20: As above #ESRD on hemodialysis Friday, and Friday -Nephrology Dr. Reaves is consulted. He knows the patient from [facility]. Currently I do not see urgent need of hemodialysis but patient might need after PRBC transfusion. 05/18: Patient was seen by senior product designer yesterday. No acute need for dialysis. She will be on her usual dialysis schedule, next on Friday, probably for EGD and colonoscopy. Mild hyperkalemia, K 5.5 but seems well compensated. -05/19: Potassium 5.3 with BUN of 104 which likely exacerbates her bleeding, nephrology following, plan for HD today -05/20: Status post dialysis 05/19, uneventful #History of Non-STEMI/coronary artery disease, TIA, PAD status post carotid endarterectomy: Patient does not have chest pain pressure or tightness.Twelve-lead EKG done in ED shows normal sinus rhythm with mild ST depression V3 to V6. Patient does not have chest pain or chest tightness. Repeat EKG. She had similar ST-T changes, ST depression from V2 to V6 and previous EKG of 02/02/2023. No acute change. Her last cath in September 2022 reported ostial LM calcified lesion, to 75%, mid LAD in-stent irregular 85% restenosis, mild circumflex, RCA ostial calcified 50%, mid RCA ectatic/aneurysmal, irregular ulcerated, diffuse plaque 75% stenosis Hold aspirin and Plavix for now. Patient had 6 months of dual antiplatelet agent therefore patient can go off Plavix. -05/19: Continue to hold aspirin and Plavix -05/20: We will need to resume antiplatelets once cleared to do so by GI #History of pulmonary hypertension, pulmonary edema and bilateral pneumonia during previous admission in January 2023 -No acute issues now. Echo in September 2022 showed chronic HFpEF EF 55% stage II diastolic dysfunction, RSV 79 mmHg consistent with severe pulmonary hypertension 2+ MR, 1-2+ TR VTE prophylaxis:Bilateral SCDs Charges/Coding Visit Charges Inpatient E&M: 36985 Subs Hosp L2
[2023-05-20] MEDS: Acetaminophen 325 MG Tablet 650 MG PO (14:08)
[2023-05-20] MEDS: QUEtiapine 25 MG Tablet 12.5 MG PO ×2 (15:51→21:03)
[2023-05-20] MEDS: 0.9% Saline Lock 10 ML Syringe IV (15:52)
--- NOTE | 2023-05-20 16:06 | CHAPLAIN ---
Type of Pastoral Visit _x__ Initial Visit ___ Follow-up Visit ___ On-call Visit ___ General Patient Visit ___ Spiritual Assessment ___ Family Conference ___ Bereavement ___ Rapid Response ___ Code Blue ___ Other (describe below) Pastoral Care Referral From _x__ Patient ___ Family ___ Nurse ___ Physician ___ Motion Picture Director ___ Fire Assistant ___ Other (describe below) Sacrament/Intervention _x__ Active listening ___ Anointing ___ Orthodoxy ___ Bereavement ___ Communion ___ Mary exploration ___ _x__ Life review _x__ Prayer ___ Reconciliation ___ Sacrament of Sick _x__ Supportive presence ___ Wedding ___ Other (describe below) Pastoral Comments patient remembers this long term care phlebotomist from previous admissions; pt gives update on self and family which included a big development with an estranged son who is now involved in her life; pt has new understanding about how sick she was and appreciates the medical team at hospital; pt welcomes someone to talk with and for more prayer in support of her life; pt has a birthday tomorrow and discussed her perspective on that
--- NOTE | 2023-05-20 16:52 | EX.PCM.PN.GI ---
Subjective Subjective Patient underwent emergent EGD and colonoscopy yesterday for acute GI bleeding. Upper endoscopy showed some mild inflammation but no signs of active GI bleeding. Colonoscopy had shown active angiodysplastic lesion bleeding that was treated with epinephrine, cautery and tattooed for identification if needed in the future. She is eating today without any abdominal pain. Objective Data Objective Data Vital Signs: Vital Signs Temp Pulse Resp BP Pulse Ox O2 Del Method O2 Flow Rate 98.3 F 54 L 16 146/51 H 95 Room Air 4 05/20/23 14:02 05/20/23 14:02 05/20/23 14:02 05/20/23 14:02 05/20/23 14:02 05/20/23 14:13 05/19/23 12:08 Oxygen Flow Rate (L/min) 4 Oxygen Delivery Method Room Air Weight: 125 lb 14.143 oz Body Mass Index (BMI) 26.4 Intake & Output: Intake and Output for Last 24 Hours 05/18/23 05/19/23 05/20/23 23:59 23:59 23:59 Intake Total 1800 / 1800 240 / 240 445 / 445 Output Total 1900 / 1900 Balance 1800 / 1800 -1660 / -1660 445 / 445 Lab / Micro Data 05/20/23 05:35 05/20/23 05:35 Labs: Laboratory Results - last 24 hr 05/20/23 05:35: WBC 6.1, RBC 2.72 L, Hgb 8.9 L, Hct 26.1 L, MCV 96.0, MCH 32.7 H, MCHC 34.1, RDW Std Deviation 62.0 H, RDW Coeff of Sotero 20.5 H, Plt Count 122 L, MPV 11.2, Immature Gran % (Auto) 0.500, Neut % (Auto) 79.1 H, Lymph % (Auto) 8.9 L, [place] % (Auto) 6.9, Eos % (Auto) 4.3, Baso % (Auto) 0.3, Absolute Neuts (auto) 4.8, Absolute Lymphs (auto) 0.54 L, Nucleated RBC % 0.3, Differential Comment SCANNED, Polychromasia 1+, Anisocytosis 1+, Sodium 132 L, Potassium 4.5, Chloride 98, Carbon Dioxide 26.0, Anion Gap 8, BUN 74 H, Creatinine 5.94 H, Estim Creat Clear Calc 6.01, Est GFR (MDRD) Af Amer 9 L, Est GFR (MDRD) Non-Af 7 L, BUN/Creatinine Ratio 12.5, Glucose 87, Calcium 8.0 L Physical Exam Narrative General: Alert, no apparent distress HEENT: Atraumatic, normocephalic Eyes: Anicteric, normal conjunctiva, extraocular movements grossly intact Neck: Supple Respiratory: Clear to auscultation bilaterally, normal respiratory effort Cardiovascular: Regular rate GI: Soft, nontender, nondistended Extremities: No edema Musculoskeletal: Moving all extremities Neuro: No overt focal neurological deficits Skin: No rashes appreciated Psych: Cooperative Assessment & Plan Assessment/Plan (1) GI bleed: QUALIFIERS: GI bleed type/associated pathology: unspecified gastrointestinal hemorrhage type Qualified Code(s): K92.2 - Gastrointestinal hemorrhage, unspecified (2) Anemia: QUALIFIERS: Anemia type: due to chronic kidney disease Chronic kidney disease stage: on chronic dialysis Qualified Code(s): N18.6 - End stage renal disease; D63.1 - Anemia in chronic kidney disease; Z99.2 - Dependence on renal dialysis PLAN: Plan 87-year-old with past medical history of severe CAD on at aspirin and and Plavix as an outpatient who presents with an acute lower GI bleed. -Lower GI bleed status post colonoscopy with treatment. Hemoglobin is 8.9 up from 7.6. She has not shown any signs of bleeding at this time. Recommend to continue trending hemoglobin and hematocrit. She can be started back on medical therapy for CAD in 3 days.
[2023-05-20 18:55] VITALS: BP 121/38; PULSE 68; RESP 18; TEMP 37.2; O2SAT 96
[2023-05-20 21:00] VITALS: BP 132/52; PULSE 53; RESP 18; TEMP 36.6; O2SAT 93
[2023-05-20] MEDS: Atorvastatin Calcium 20 MG Tablet PO ×2 (21:02→21:03)
[2023-05-21 02:17] VITALS: BP 135/46; PULSE 48; RESP 16; TEMP 35.9; O2SAT 98
[2023-05-21 02:19] VITALS: PULSE 48
[2023-05-21 05:22] VITALS: BMI 26.4
[2023-05-21] MEDS: Levothyroxine 100 MCG Tablet 200 MCG PO (05:24)
[2023-05-21 06:18] LABS: Absolute Lymphocyte Count 0.75 X10^3/uL (0.83-4.51); Absolute Neutrophil Count 3.6 X10^3/uL (2.0-7.7); Basophil# 0.02 X10^3/uL; Basophil% 0.4 % (0-1); Eosinophil# 0.29 X10^3/uL; Eosinophils% 5.7 % (0-5); Hemoglobin 8.8 g/dL (12.0-15.0); Lymphocyte # 0.75 X10^3/ul (0.83-4.51); Lymphocyte % 14.6 % (19-41); Mean Corp Hgb Conc 32.6 g/dL (32-36); Mean Corpuscular Hgb 31.9 pg (27.0-32.0); Mean Corpuscular Volume 97.8 fL (81-99); Mean Platelet Vol. 11.3 fl (6.2-12.0); Monocyte# 0.42 X10^3/uL; Monocyte% 8.2 % (0-10); NRBC Flagged by Analyzer 0 % (0-5); Neutrophil # 3.62 X10^3/uL (2.7-7.7); Neutrophil % 70.5 % (47-70); POSITIVE MORPHOLOGY YES; Platelet Count 123 K/mm3 (150-450); RBC Distribution Width CV 21.1 % (11.6-14.6); RBC Distribution Width SD 62.4 fl (35.1-43.9); Red Blood Count 2.76 M/mm3 (4.2-5.4); White Blood Count 5.1 K/mm3 (4.4-11.0)
[2023-05-21 06:29] LABS: Differential Indicated SCAN CRITERIA MET
[2023-05-21 06:43] LABS: Anion Gap 9 (5-15); BUN 80 mg/dL (7-18); BUN/Creat Ratio 11.2 RATIO (10-20); Calcium,Total 8.3 mg/dL (8.5-10.1); Chloride 99 mmol/L (98-107); Creatinine, Serum 7.12 mg/dL (0.55-1.02); EST Glomerular Filtration Rate 6 mL/min (>60); Est Glom Filt Rate - Afr Amer 7 mL/min (>60); Estimated Creatinine Clearance 4.93 ml/min; Glucose 84 mg/dL (74-106); Potassium 5.1 mmol/L (3.5-5.1); Sodium Level 132 mmol/L (136-145)
[2023-05-21 06:49] LABS: Anisocytosis 1+; Differential Comment SCANNED; Macrocytosis 1+; Polychromasia RARE
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
[2023-05-21 07:51] VITALS: BP 142/51; PULSE 51; RESP 15; TEMP 36.7; O2SAT 98
[2023-05-21] MEDS: amLODIPine 10 MG Tablet PO (09:25)
[2023-05-21] MEDS: Pantoprazole Sodium 40 MG Tablet PO (09:25)
[2023-05-21] MEDS: QUEtiapine 25 MG Tablet 12.5 MG PO (09:25)
--- NOTE | 2023-05-21 10:11 | TREXTCAR_ITS ---
Diet Diet Order/Speech Therapy: 05/21/23 09:23 Diet: Renal diet Is pt able to select menu?: Yes Routine Orders/Code Status Suppository Type: Dulcolax 10mg Suppository Frequency: Daily PRN Code Status: Full Code Wound(s) Right IJ: Wound Type: Puncture R chest: Wound Type: Puncture Therapies Physical Therapy: Eval and Treat Problem/Diagnosis (1) GI bleed: Status: Acute Code(s): K92.2 - Gastrointestinal hemorrhage, unspecified (2) Anemia: Status: Acute Code(s): D64.9 - Anemia, unspecified Plan #GI bleed- secondary to colonic angiodysplastic lesion #erythematous mucosa in the gastric body, irritation of esophagus and duodenum #Acute blood loss anemia / #1 with history of chronic macrocytic anemia/anemia of chronic disease #ESRD on hemodialysis Friday, and Friday #History of Non-STEMI/coronary artery disease, TIA, PAD status post carotid endarterectomy #History of pulmonary hypertension #Hx chronic hfpef 88-year-old female who Struve coronary artery disease, cognitive impairment, end-stage renal disease on dialysis, hypertension, hypothyroidism, TIA who presented to [facility] 05/17/2023 with initial dark blood in the bright red blood per rectum for 3 to 4 days. She had a hemoglobin of 5.4 from a baseline of around 8 and she was given 2 units packed red blood cells and admitted with GI consult. She had upper and lower endoscopy 05/19/2023 which demonstrated angiodysplastic lesions in the colon which were treated, also had some erythematous mucosa in the gastric body and irritation of esophagus and duodenum. After her colonic angiodysplastic lesions were treated hemoglobin was stable and she was tolerating p.o. GI recommended on 05/20 to resume therapy for CAD and 3 days. Hospitalization complicated by some delirium at bedtime resulting in her pulling out to central lines however repeat placement was not required as bleeding was controlled. During hospitalization Seroquel at low- dose did help with her delirium. No other acute complaints aside from some generalized weakness prior to discharge back to [facility] -You will need to follow-up with Dr. Ramsay with GI in his office upon discharge. Please call his office to schedule your hospital follow-up appointment (ph. [phone]) -You can resume your aspirin and Plavix on 05/24/2023 -It is advised that you decrease your carvedilol dose to 3.125 mg twice daily due to a somewhat low heart rate -Additionally her hydralazine was decreased to 50 mg 3 times a day as your blood pressure was slightly elevated with the Norvasc and carvedilol and suspect that a higher dose may drop blood pressure lower than necessary -Continue other home medications -Continue dialysis per nephrology recommendations -Please call your primary care provider's office upon discharge to schedule a hospital follow up within 1 week. -For any concerning signs or symptoms please call 911 or proceed to the nearest emergency department Allergies/Procedures Done in Hospital Allergies codeine Allergy (Verified 05/17/23 07:44) Hives morphine Allergy (Verified 05/17/23 07:44) Hives oxycodone Allergy (Verified 05/17/23 07:44) Hives propoxyphene Allergy (Verified 05/17/23 07:44) NEEDS FOLLOW-UP tramadol Allergy (Verified 05/17/23 07:44) NEEDS FOLLOW-UP Type of Care/Length of Stay Estimated LOS: More Than 30 Days Type of Care Needed: Intermediate Rehab Potential: Fair Prognosis: Fair Additional Orders/Day of Discharge Day of Discharge: 05/21/23 Dietary and Speech Recommendations Dietitian Recommendations/Changes: Recommend General Renal Diet as able to advance PO after endo. PO NEPRO oral nutrition supplement as needed when diet advanced. Discharge Plan Admission Admit Date/Time: 05/17/23 09:43 Primary Reason for Your Visit: GI bleed Attending Provider: Aundrea Ernst Primary Care Provider: Cat Holman Consulting Providers: Elizabeth Reaves; Luis Carlos Baca Instructions Patient Instructions: ED Lower GI Bleeding (Stable), ED Upper GI Bleeding (Stable) Additional Instructions / Restrictions: DISCHARGE INSTRUCTIONS PLEASE READ *Please take this with you to your next doctors appointment* -You were admitted and found to have a lower GI bleed which was treated. You will need to follow-up with Dr. Ramsay with GI in his office upon discharge. Please call his office to schedule your hospital follow-up appointment (ph. [phone]) -You can resume your aspirin and Plavix on 05/24/2023. Continue your protonix -It is advised that you decrease your carvedilol dose to 3.125 mg twice daily due to a somewhat low heart rate -Additionally her hydralazine was decreased to 50 mg 3 times a day as your blood pressure was slightly elevated with the Norvasc and carvedilol and suspect that a higher dose may drop blood pressure lower than necessary -Continue other home medications -Continue dialysis per nephrology recommendations -Please call your primary care provider's office upon discharge to schedule a hospital follow up within 1 week. -For any concerning signs or symptoms please call 911 or proceed to the nearest emergency department Discharge Orders/Prescriptions Prescriptions: Continued isosorbide mononitrate 60 mg tablet extended release 24 hr 60 mg PO DAILY Qty: 90 3RF levothyroxine 100 mcg tablet 100 mcg PO SUSA levothyroxine 200 mcg tablet 200 mcg PO MOTUWEFR nitroglycerin 0.4 mg Tablet, Sublingual 0.4 mg sublingual Q5M PRN (Reason: CHEST PAIN) Qty: 0 0RF sennosides [senna] 8.6 mg Tablet 8.6 mg PO DAILY acetaminophen 325 mg Tablet 650 mg PO Q4H PRN (Reason: PAIN ) donepezil 10 mg tablet 10 mg PO QHS ondansetron HCl 4 mg Tablet 4 mg PO DAILY atorvastatin 20 mg tablet 20 mg PO QHS amlodipine 10 mg tablet 10 mg PO DAILY pantoprazole 40 mg Tablet,Delayed Release (Dr/Ec) 40 mg PO DAILY Qty: 0 0RF calcitriol 0.25 mcg capsule 0.25 mcg PO MOWEFR loratadine [Allergy Relief (loratadine)] 10 mg tablet 10 mg PO QHS Rx Instructions: [facility] ORDER SUMMARY REPORT, GIVE ONE TABLET BY MOUTH AT BEDTIME FOR ALLERGIES FOR 7 DAYS. START DATE: END DATE: 05-20-23 acetaminophen 325 mg tablet 325 mg PO DAILY furosemide [Lasix] 40 mg tablet 40 mg PO SUTHSA bisacodyl 10 mg suppository 10 mg AK DAILY PRN (Reason: CONSTIPATION ) glucagon HCl [Glucagon (HCl) Emergency Kit] 1 mg recon soln 1 mg IM Q20M PRN (Reason: HYPOGLYCEMIA ) Changed carvedilol 6.25 mg tablet 3.125 mg PO BID Qty: 30 0RF hydralazine 100 mg tablet 50 mg PO TID Qty: 45 0RF Held aspirin 81 mg tablet,delayed release (DR/EC) 81 mg PO DAILY Hold Instructions: Resume on 05/24/23. clopidogrel 75 mg Tablet 75 mg PO DAILY Qty: 0 0RF Hold Instructions: Resume on 05/24/23. Referrals / Follow Up: Cat Holman MD [Primary Care Provider] - Within 1 Week Eduardo Ramsay DO [Med Staff - Active Staff] - ( -You will need to follow-up with Dr. Ramsay with GI in his office upon discharge. Please call his office to schedule your hospital follow-up appointment (ph. [phone])) Disposition Disposition (needs filled in before D/C Order can be placed): NonSkilled NH/Intermed Care (1) GI bleed Qualifiers: GI bleed type/associated pathology: unspecified gastrointestinal hemorrhage type Qualified Code(s): K92.2 - Gastrointestinal hemorrhage, unspecified (2) Anemia Qualifiers: Anemia type: due to chronic kidney disease Chronic kidney disease stage: on chronic dialysis Qualified Code(s): N18.6 - End stage renal disease; D63.1 - Anemia in chronic kidney disease; Z99.2 - Dependence on renal dialysis
--- NOTE | 2023-05-21 10:16 | DS.PCM_ITS ---
Providers Date of Admission: 05/17/23 Date of Discharge: 05/21/23 Primary Care Physician: Dr. Cat Holman MD Consultations 05/17/23 10:54 Consult: Gastroenterology Routine Consulting Provider: Leisa Gastro[facility] Reason for Consult: Severe GI Bleed, suspected lower GI bleed EMERGENT Consult: No Notified: Yes Date Notified: 05/17/23 Time Notified: 09:47 Method of Notification: ED Physician Initiated 05/17/23 13:17 Consult: Nephrology Routine Consulting Provider: Elizabeth Reaves Reason for Consult: ESRD on HD M,,,F, GI Bleed EMERGENT Consult: No Notified: Yes Date Notified: 05/17/23 Time Notified: 13:17 Method of Notification: Verbal Reason For Visit: SEVERE ANEMIA WITH UPPER GI BLEED Diagnosis Discharge Diagnosis (1) GI bleed: Status: Acute Code(s): K92.2 - Gastrointestinal hemorrhage, unspecified Qualifiers: GI bleed type/associated pathology: unspecified gastrointestinal hemorrhage type Qualified Code(s): K92.2 - Gastrointestinal hemorrhage, unspecified (2) Anemia: Status: Acute Code(s): D64.9 - Anemia, unspecified Qualifiers: Anemia type: due to chronic kidney disease Chronic kidney disease stage: on chronic dialysis Qualified Code(s): N18.6 - End stage renal disease; D63.1 - Anemia in chronic kidney disease; Z99.2 - Dependence on renal dialysis Plan #GI bleed- secondary to colonic angiodysplastic lesion #erythematous mucosa in the gastric body, irritation of esophagus and duodenum #Acute blood loss anemia 2/2 #1 with history of chronic macrocytic anemia/anemia of chronic disease #ESRD on hemodialysis Friday, and Friday #History of Non-STEMI/coronary artery disease, TIA, PAD status post carotid endarterectomy #History of pulmonary hypertension #Hx chronic hfpef Medications at Discharge Home Medications aspirin 81 mg tablet,delayed release 81 mg PO DAILY HEART HEALTH 10/18/22 levothyroxine 100 mcg tablet 100 mcg PO SUSA THYROID 10/18/22 levothyroxine 200 mcg tablet 200 mcg PO MOTUWEFR THYROID 10/18/22 clopidogrel 75 mg tablet 75 mg PO DAILY BLOOD THINNER #0 tabs 10/19/22 nitroglycerin 0.4 mg sublingual tablet 0.4 mg sublingual Q5M PRN CHEST PAIN #0 tabs 10/19/22 isosorbide mononitrate 60 mg tablet,extended release 24 hr 60 mg PO DAILY BLOOD PRESSURE #90 tabs 11/11/22 acetaminophen 325 mg tablet 650 mg PO Q4H PRN PAIN 02/02/23 amlodipine 10 mg tablet 10 mg PO DAILY BLOOD PRESSURE 02/02/23 atorvastatin 20 mg tablet 20 mg PO QHS CHOLESTEROL 02/02/23 donepezil 10 mg tablet 10 mg PO QHS DEMENTIA 02/02/23 ondansetron HCl 4 mg tablet 4 mg PO DAILY NAUSEA 02/02/23 sennosides 8.6 mg tablet (senna) 8.6 mg PO DAILY CONSTIPATION 02/02/23 pantoprazole 40 mg tablet,delayed release 40 mg PO DAILY ACID REFLUX #0 tabs 02/04/23 acetaminophen 325 mg tablet 325 mg PO DAILY HEADACHE 05/17/23 bisacodyl 10 mg rectal suppository 10 mg [place] DAILY PRN CONSTIPATION 05/17/23 calcitriol 0.25 mcg capsule 0.25 mcg PO MOWEFR KIDNEY DISEASE 05/17/23 furosemide 40 mg tablet (Lasix) 40 mg PO SUTHSA FLUID 05/17/23 glucagon HCl 1 mg solution for injection (Glucagon (HCl) Emergency Kit) 1 mg IM Q20M PRN HYPOGLYCEMIA 05/17/23 loratadine 10 mg tablet (Allergy Relief (loratadine)) 10 mg PO QHS ALLERGIES 05/17/23 carvedilol 6.25 mg tablet 3.125 mg (1/2 x 6.25 mg) PO BID HEART #30 tabs 05/21/23 hydralazine 100 mg tablet 50 mg (1/2 x 100 mg) PO TID BLOOD PRESSURE #45 tabs 05/21/23 Hospital Course Summary of Care Provided Minutes Spent on Discharge: 35 Hospital Course: 88-year-old female who Struve coronary artery disease, cognitive impairment, end -stage renal disease on dialysis, hypertension, hypothyroidism, TIA who presented to [facility] 05/17/2023 with initial dark blood in the bright red blood per rectum for 3 to 4 days. She had a hemoglobin of 5.4 from a baseline of around 8 and she was given 2 units packed red blood cells and admitted with GI consult. She had upper and lower endoscopy 05/19/2023 which demonstrated angiodysplastic lesions in the colon which were treated, also had some erythematous mucosa in the gastric body and irritation of esophagus and duodenum. After her colonic angiodysplastic lesions were treated hemoglobin was stable and she was tolerating p.o. GI recommended on 05/20 to resume therapy for CAD and 3 days. Hospitalization complicated by some delirium at bedtime resulting in her pulling out to central lines however repeat placement was not required as bleeding was controlled. During hospitalization Seroquel at low- dose did help with her delirium. No other acute complaints aside from some generalized weakness prior to discharge back to [facility] -You will need to follow-up with Dr. Ramsay with GI in his office upon discharge. Please call his office to schedule your hospital follow-up appointment (ph. [phone]) -You can resume your aspirin and Plavix on 05/24/2023 -It is advised that you decrease your carvedilol dose to 3.125 mg twice daily due to a somewhat low heart rate -Additionally her hydralazine was decreased to 50 mg 3 times a day as your blood pressure was slightly elevated with the Norvasc and carvedilol and suspect that a higher dose may drop blood pressure lower than necessary -Continue other home medications -Continue dialysis per nephrology recommendations -Please call your primary care provider's office upon discharge to schedule a hospital follow up within 1 week. -For any concerning signs or symptoms please call 911 or proceed to the nearest emergency department Physical Exam Narrative General: Alert, no apparent distress HEENT: Atraumatic, normocephalic Eyes: Anicteric, normal conjunctiva, extraocular movements grossly intact Neck: Supple Respiratory: Clear to auscultation bilaterally, normal respiratory effort Cardiovascular: Regular rate GI: Soft, nontender, nondistended Extremities: No edema Musculoskeletal: Moving all extremities Neuro: No overt focal neurological deficits Skin: No rashes appreciated Psych: Cooperative Weight / BMI Weight Weight: 57.153 kg Body Mass Index (BMI) 26.4 ABG / Lab / Microbiology Data 05/21/23 06:05 05/21/23 06:05 Laboratory: Laboratory Results - last 24 hr 05/21/23 06:05: WBC 5.1, RBC 2.76 L, Hgb 8.8 L, Hct 27.0 L, MCV 97.8, MCH 31.9, MCHC 32.6, RDW Std Deviation 62.4 H, RDW Coeff of Sotero 21.1 H, Plt Count 123 L, MPV 11.3, Immature Gran % (Auto) 0.600, Neut % (Auto) 70.5 H, Lymph % (Auto) 14.6 L, [place] % (Auto) 8.2, Eos % (Auto) 5.7 H, Baso % (Auto) 0.4, Absolute Neuts (auto) 3.6, Absolute Lymphs (auto) 0.75 L, Nucleated RBC % 0, Differential Comment SCANNED, Polychromasia RARE, Anisocytosis 1+, Macrocytosis 1+, Sodium 132 L, Potassium 5.1, Chloride 99, Carbon Dioxide 24.0, Anion Gap 9, BUN 80 H, Creatinine 7.12 H, Estim Creat Clear Calc 4.93, Est GFR (MDRD) Af Amer 7 L, Est GFR (MDRD) Non-Af 6 L, BUN/Creatinine Ratio 11.2, Glucose 84, Calcium 8.3 L D/C Instructions Discharge Diet: Renal Diet Discharge Activity: - (Return to normal activity as tolerated) Meaningful Use Info Meaningful Use Diagnoses (Choose all that apply): None applicable Discharge Plan Admission Admit Date/Time: 05/17/23 09:43 Primary Reason for Your Visit: GI bleed Attending Provider: Aundrea Ernst Primary Care Provider: Cat Holman Consulting Providers: Elizabeth Reaves; Luis Carlos Baca Instructions Patient Instructions: ED Lower GI Bleeding (Stable), ED Upper GI Bleeding (Stable) Additional Instructions / Restrictions: DISCHARGE INSTRUCTIONS PLEASE READ *Please take this with you to your next doctors appointment* -You were admitted and found to have a lower GI bleed which was treated. You will need to follow-up with Dr. Ramsay with GI in his office upon discharge. Please call his office to schedule your hospital follow-up appointment (ph. [phone]) -You can resume your aspirin and Plavix on 05/24/2023. Continue your protonix -It is advised that you decrease your carvedilol dose to 3.125 mg twice daily due to a somewhat low heart rate -Additionally her hydralazine was decreased to 50 mg 3 times a day as your blood pressure was slightly elevated with the Norvasc and carvedilol and suspect that a higher dose may drop blood pressure lower than necessary -Continue other home medications -Continue dialysis per nephrology recommendations -Please call your primary care provider's office upon discharge to schedule a hospital follow up within 1 week. -For any concerning signs or symptoms please call 911 or proceed to the nearest emergency department Discharge Orders/Prescriptions Prescriptions: Continued isosorbide mononitrate 60 mg tablet extended release 24 hr 60 mg PO DAILY Qty: 90 3RF levothyroxine 100 mcg tablet 100 mcg PO SUSA levothyroxine 200 mcg tablet 200 mcg PO MOTUWEFR nitroglycerin 0.4 mg Tablet, Sublingual 0.4 mg sublingual Q5M PRN (Reason: CHEST PAIN) Qty: 0 0RF sennosides [senna] 8.6 mg Tablet 8.6 mg PO DAILY acetaminophen 325 mg Tablet 650 mg PO Q4H PRN (Reason: PAIN ) donepezil 10 mg tablet 10 mg PO QHS ondansetron HCl 4 mg Tablet 4 mg PO DAILY atorvastatin 20 mg tablet 20 mg PO QHS amlodipine 10 mg tablet 10 mg PO DAILY pantoprazole 40 mg Tablet,Delayed Release (Dr/Ec) 40 mg PO DAILY Qty: 0 0RF calcitriol 0.25 mcg capsule 0.25 mcg PO MOWEFR loratadine [Allergy Relief (loratadine)] 10 mg tablet 10 mg PO QHS Rx Instructions: PER F ORDER SUMMARY REPORT, GIVE ONE TABLET BY MOUTH AT BEDTIME FOR ALLERGIES FOR 7 DAYS. START DATE: END DATE: 05-20-23 acetaminophen 325 mg tablet 325 mg PO DAILY furosemide [Lasix] 40 mg tablet 40 mg PO SUTHSA bisacodyl 10 mg suppository 10 mg MO DAILY PRN (Reason: CONSTIPATION ) glucagon HCl [Glucagon (HCl) Emergency Kit] 1 mg recon soln 1 mg IM Q20M PRN (Reason: HYPOGLYCEMIA ) Changed carvedilol 6.25 mg tablet 3.125 mg PO BID Qty: 30 0RF hydralazine 100 mg tablet 50 mg PO TID Qty: 45 0RF Held aspirin 81 mg tablet,delayed release (DR/EC) 81 mg PO DAILY Hold Instructions: Resume on 05/24/23. clopidogrel 75 mg Tablet 75 mg PO DAILY Qty: 0 0RF Hold Instructions: Resume on 05/24/23. Referrals / Follow Up: Cat Holman MD [Primary Care Provider] - Within 1 Week Eduardo Ramsay DO [Med Staff - Active Staff] - ( -You will need to follow-up with Dr. Ramsay with GI in his office upon discharge. Please call his office to schedule your hospital follow-up appointment (ph. [phone])) Disposition Disposition (needs filled in before D/C Order can be placed): NonSkilled NH/Intermed Care Charges/Coding Visit Charges Inpatient E&M: 96441 Disch Hosp >30min
--- NOTE | 2023-05-21 10:31 | PHA.DC.MR.R ---
Pharmacy [facility] Med Reconciliation Pharmacy Service has performed discharge medication reconciliation for this patient. The patient's discharge medication list was reviewed for discrepancies and discrepancies were resolved. Medications at Discharge Home Medications aspirin 81 mg tablet,delayed release 81 mg PO DAILY HEART HEALTH 10/18/22 levothyroxine 100 mcg tablet 100 mcg PO SUSA THYROID 10/18/22 levothyroxine 200 mcg tablet 200 mcg PO MOTUWEFR THYROID 10/18/22 clopidogrel 75 mg tablet 75 mg PO DAILY BLOOD THINNER #0 tabs 10/19/22 nitroglycerin 0.4 mg sublingual tablet 0.4 mg sublingual Q5M PRN CHEST PAIN #0 tabs 10/19/22 isosorbide mononitrate 60 mg tablet,extended release 24 hr 60 mg PO DAILY BLOOD PRESSURE #90 tabs 11/11/22 acetaminophen 325 mg tablet 650 mg PO Q4H PRN PAIN 02/02/23 amlodipine 10 mg tablet 10 mg PO DAILY BLOOD PRESSURE 02/02/23 atorvastatin 20 mg tablet 20 mg PO QHS CHOLESTEROL 02/02/23 donepezil 10 mg tablet 10 mg PO QHS DEMENTIA 02/02/23 ondansetron HCl 4 mg tablet 4 mg PO DAILY NAUSEA 02/02/23 sennosides 8.6 mg tablet (senna) 8.6 mg PO DAILY CONSTIPATION 02/02/23 pantoprazole 40 mg tablet,delayed release 40 mg PO DAILY ACID REFLUX #0 tabs 02/04/23 acetaminophen 325 mg tablet 325 mg PO DAILY HEADACHE 05/17/23 bisacodyl 10 mg rectal suppository 10 mg [place] DAILY PRN CONSTIPATION 05/17/23 calcitriol 0.25 mcg capsule 0.25 mcg PO MOWEFR KIDNEY DISEASE 05/17/23 furosemide 40 mg tablet (Lasix) 40 mg PO SUTHSA FLUID 05/17/23 glucagon HCl 1 mg solution for injection (Glucagon (HCl) Emergency Kit) 1 mg IM Q20M PRN HYPOGLYCEMIA 05/17/23 loratadine 10 mg tablet (Allergy Relief (loratadine)) 10 mg PO QHS ALLERGIES 05/17/23 carvedilol 6.25 mg tablet 3.125 mg (1/2 x 6.25 mg) PO BID HEART #30 tabs 05/21/23 hydralazine 100 mg tablet 50 mg (1/2 x 100 mg) PO TID BLOOD PRESSURE #45 tabs 05/21/23
--- NOTE | 2023-05-21 10:37 | CASEMGMT ---
Patient is ready for discharge back to [facility]. SW sent orders to [facility] via [facility]. has asked [facility] if they could pick patient up. Await answer. Lizet DICKSON
--- NOTE | 2023-05-21 10:51 | CASEMGMT ---
MIGUEL called patient's Healthcare Power of Manager Delivery Anusha and let her know patient will be discharged back to [facility] today. Anusha asked if Miguel could call her when MIGUEL has a time. Lizet DICKSON
--- NOTE | 2023-05-21 10:51 | PCM.PN.REN ---
Subjective Subjective Resting in bed, no overnight events. No complaints Objective Data Objective Data Vital Signs: Vital Signs Temp Pulse Resp BP Pulse Ox O2 Del Method O2 Flow Rate 98.0 F 51 L 15 142/51 H 98 Room Air 4 05/21/23 07:51 05/21/23 07:51 05/21/23 07:51 05/21/23 07:51 05/21/23 07:51 05/21/23 08:21 05/19/23 12:08 Oxygen Flow Rate (L/min) 4 Oxygen Delivery Method Room Air Weight: 57.153 kg Body Mass Index (BMI) 26.4 Intake & Output: Intake and Output for Last 24 Hours 05/19/23 05/20/23 05/21/23 23:59 23:59 23:59 Intake Total 240 / 240 805 / 1027 422 / 422 Output Total 1900 / 1900 Balance -1660 / -1660 805 / 1027 422 / 422 Lab / Micro Data 05/21/23 06:05 05/21/23 06:05 Labs: Laboratory Results - last 24 hr 05/21/23 06:05: WBC 5.1, RBC 2.76 L, Hgb 8.8 L, Hct 27.0 L, MCV 97.8, MCH 31.9, MCHC 32.6, RDW Std Deviation 62.4 H, RDW Coeff of Sotero 21.1 H, Plt Count 123 L, MPV 11.3, Immature Gran % (Auto) 0.600, Neut % (Auto) 70.5 H, Lymph % (Auto) 14.6 L, [place] % (Auto) 8.2, Eos % (Auto) 5.7 H, Baso % (Auto) 0.4, Absolute Neuts (auto) 3.6, Absolute Lymphs (auto) 0.75 L, Nucleated RBC % 0, Differential Comment SCANNED, Polychromasia RARE, Anisocytosis 1+, Macrocytosis 1+, Sodium 132 L, Potassium 5.1, Chloride 99, Carbon Dioxide 24.0, Anion Gap 9, BUN 80 H, Creatinine 7.12 H, Estim Creat Clear Calc 4.93, Est GFR (MDRD) Af Amer 7 L, Est GFR (MDRD) Non-Af 6 L, BUN/Creatinine Ratio 11.2, Glucose 84, Calcium 8.3 L Physical Exam Narrative Alert and oriented x3, no apparent distress S1, S2, RRR Lung sounds clear anteriorly and posteriorly. No wheezes, rhonchi or rales abdomen soft, non-tender No edema AV fistula left arm positive thrill and bruit Assessment & Plan Assessment/Plan (1) ESRD (end stage renal disease): PLAN: - ESRD on HD at [facility] /// schedule. Dialyzed Friday 2k bath with ~1.7L UF. No acute indication for STUDIO [facility]ISTANT today, next hd tomorrow. - acute on chronic anemia; EGD and C-scope: found esophagitis/duodenitis and biopsied erythematous mucosa in gastric body; bleeding colonic lesion treated with argon beam coagulation. Hgb improved s/p PRBC; hgb was 5.4 on admission, now 8.8. Patient will receive HARVINDER and iron with HD - bps acceptable on coreg and norvasc - Discussed nephrology plan with Dr. Ernst and discharge planning team, patient to be discharged to [facility] today. Next dialysis will be tomorrow and then again Friday as per her schedule.
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
--- NOTE | 2023-05-21 12:21 | CASEMGMT ---
SW received a message from [facility] and they can pick patient up at 230 at the main entrance. SW notified patient, RN, inside phone sales, and patient's Healthcare Power of Car Hostler Anusha know this information. Plan: d/c back to [facility] under intermediate level of care. [facility] will machine operator picker patient at 230p. Lizet DICKSON
[2023-05-21 14:12] VITALS: BP 142/64; PULSE 54; RESP 16; TEMP 36.7; O2SAT 98
== END 2023-05-21 14:15 | disposition skilled nursing facility (03) | DRG 377 ==
LOC: ED 09:32 → PCU 10:04
PROVIDERS: Anesthesiology; Internal Medicine Gastroenterology; Nurse Practitioner Adult Health; Admitting Provider Internal Medicine; Emergency Provider Emergency Medicine; PCP Internal Medicine; Visit Provider Internal Medicine
PROC: 0DJD8ZZ Inspection of Lower Intestinal Tract, Via Natural or Artificial Opening Endoscopic (ICD-10-PCS; CPT 45378; principal; 2023-05-19 10:55)
DX: K55.21 Angiodysplasia of colon with hemorrhage (principal); N18.6 End stage renal disease; I13.2 Hypertensive heart and chronic kidney disease with heart failure and with stage 5 chronic kidney disease, or end stage renal disease; I24.8 Other forms of acute ischemic heart disease; D62 Acute posthemorrhagic anemia; I50.32 Chronic diastolic (congestive) heart failure; D63.1 Anemia in chronic kidney disease; F03.90 Unspecified dementia, unspecified severity, without behavioral disturbance, psychotic disturbance, mood disturbance, and anxiety; Z99.2 Dependence on renal dialysis; I25.10 Atherosclerotic heart disease of native coronary artery without angina pectoris; E87.5 Hyperkalemia; E03.9 Hypothyroidism, unspecified; I25.2 Old myocardial infarction; K21.00 Gastro-esophageal reflux disease with esophagitis, without bleeding; K57.31 Diverticulosis of large intestine without perforation or abscess with bleeding; K29.81 Duodenitis with bleeding; Z98.61 Coronary angioplasty status; Z95.828 Presence of other vascular implants and grafts; Z79.02 Long term (current) use of antithrombotics/antiplatelets; Z79.82 Long term (current) use of aspirin; Z79.899 Other long term (current) drug therapy; Z86.73 Personal history of transient ischemic attack (TIA), and cerebral infarction without residual deficits; Z86.718 Personal history of other venous thrombosis and embolism
CPT/HCPCS: 36415; 71045; 74177; 80048; 80053; 80076; 83605; 83735; 84484; 85014; 85018; 85025; 85610; 85730; 86644; 86850; 86900; 86901; 86920; 86922; 88305; 88342; 90937; 93005; 94668; 97110; 97162; 97166; 97530; 97535; 99285; J7030; J7040; J7120; P9016; Q9967; A4216; A4648; C1751; G0257; J1940; J2405

== ENCOUNTER → 2023-05-29 | Outpatient (REF) | payer MEDICARE, MEDICAID, SELFPAY ==
[2023-05-29 09:13] LABS: Absolute Lymphocyte Count 0.81 X10^3/uL (0.83-4.51); Absolute Neutrophil Count 2.6 X10^3/uL (2.0-7.7); Basophil# 0.03 X10^3/uL; Basophil% 0.7 % (0-1); Differential Indicated SCAN CRITERIA MET; Eosinophil# 0.25 X10^3/uL; Hematocrit 28.2 % (37-47); Hemoglobin 8.6 g/dL (12.0-15.0); Lymphocyte # 0.81 X10^3/ul (0.83-4.51); Lymphocyte % 19.6 % (19-41); Mean Corp Hgb Conc 30.5 g/dL (32-36); Mean Corpuscular Hgb 32.8 pg (27.0-32.0); Mean Corpuscular Volume 107.6 fL (81-99); Mean Platelet Vol. 11.8 fl (6.2-12.0); Monocyte# 0.48 X10^3/uL; Monocyte% 11.6 % (0-10); NRBC Flagged by Analyzer 0 % (0-5); Neutrophil # 2.56 X10^3/uL (2.7-7.7); Neutrophil % 61.9 % (47-70); POSITIVE MORPHOLOGY YES; Platelet Count 143 K/mm3 (150-450); RBC Distribution Width CV 22.7 % (11.6-14.6); Red Blood Count 2.62 M/mm3 (4.2-5.4); White Blood Count 4.1 K/mm3 (4.4-11.0)
[2023-05-29 09:23] LABS: Anion Gap 7 (5-15); BUN 75 mg/dL (7-18); BUN/Creat Ratio 13.1 RATIO (10-20); Calcium,Total 8.7 mg/dL (8.5-10.1); Chloride 101 mmol/L (98-107); Creatinine, Serum 5.74 mg/dL (0.55-1.02); EST Glomerular Filtration Rate 7 mL/min (>60); Est Glom Filt Rate - Afr Amer 9 mL/min (>60); Glucose 74 mg/dL (74-106); Potassium 5.2 mmol/L (3.5-5.1); Sodium Level 138 mmol/L (136-145)
[2023-05-29 10:20] LABS: Differential Comment SCANNED; Polychromasia RARE
[2023-05-29 10:21] LABS: Anisocytosis 2+; Macrocytosis 1+
== END ==
LOC: OLS.SW 05:00
PROVIDERS: PCP Internal Medicine; Visit Provider Internal Medicine
DX: N18.6 End stage renal disease (principal)
CPT/HCPCS: 36415; 80048; 85025

== ENCOUNTER → 2023-06-06 | Outpatient (REF) | payer MEDICARE, MEDICAID, SELFPAY ==
[2023-06-06 09:18] LABS: Absolute Lymphocyte Count 0.86 X10^3/uL (0.83-4.51); Absolute Neutrophil Count 1.9 X10^3/uL (2.0-7.7); Basophil# 0.03 X10^3/uL; Basophil% 0.9 % (0-1); Eosinophil# 0.22 X10^3/uL; Eosinophils% 6.6 % (0-5); Hematocrit 30.6 % (37-47); Hemoglobin 9.7 g/dL (12.0-15.0); Lymphocyte # 0.86 X10^3/ul (0.83-4.51); Lymphocyte % 25.8 % (19-41); Mean Corp Hgb Conc 31.7 g/dL (32-36); Mean Corpuscular Hgb 33.8 pg (27.0-32.0); Mean Corpuscular Volume 106.6 fL (81-99); Mean Platelet Vol. 11.1 fl (6.2-12.0); Monocyte# 0.32 X10^3/uL; Monocyte% 9.6 % (0-10); NRBC Flagged by Analyzer 0 % (0-5); Neutrophil # 1.89 X10^3/uL (2.7-7.7); Neutrophil % 56.8 % (47-70); POSITIVE MORPHOLOGY YES; Platelet Count 168 K/mm3 (150-450); RBC Distribution Width CV 21.2 % (11.6-14.6); RBC Distribution Width SD 82.6 fl (35.1-43.9); Red Blood Count 2.87 M/mm3 (4.2-5.4); White Blood Count 3.3 K/mm3 (4.4-11.0)
[2023-06-06 09:19] LABS: Differential Indicated SCAN CRITERIA MET
[2023-06-06 09:33] LABS: Anion Gap 7 (5-15); BUN 58 mg/dL (7-18); BUN/Creat Ratio 12.4 RATIO (10-20); Chloride 101 mmol/L (98-107); Creatinine, Serum 4.67 mg/dL (0.55-1.02); EST Glomerular Filtration Rate 9 mL/min (>60); Est Glom Filt Rate - Afr Amer 11 mL/min (>60); Glucose 100 mg/dL (74-106); Potassium 4.9 mmol/L (3.5-5.1); Sodium Level 139 mmol/L (136-145)
[2023-06-06 09:44] LABS: Anisocytosis 1+
== END ==
LOC: OLS.SW 05:00
PROVIDERS: PCP Internal Medicine; Visit Provider Internal Medicine
DX: J81.1 Chronic pulmonary edema (principal); N18.6 End stage renal disease
CPT/HCPCS: 36415; 80048; 85025

== ENCOUNTER → 2023-06-12 | Outpatient (REF) | payer MEDICARE, MEDICAID, SELFPAY ==
[2023-06-12 11:53] LABS: Absolute Lymphocyte Count 0.64 X10^3/uL (0.83-4.51); Absolute Neutrophil Count 2.8 X10^3/uL (2.0-7.7); Basophil# 0.03 X10^3/uL; Basophil% 0.7 % (0-1); Eosinophil# 0.26 X10^3/uL; Eosinophils% 6.2 % (0-5); Hematocrit 32.3 % (37-47); Hemoglobin 10.1 g/dL (12.0-15.0); Lymphocyte # 0.64 X10^3/ul (0.83-4.51); Lymphocyte % 15.3 % (19-41); Mean Corp Hgb Conc 31.3 g/dL (32-36); Mean Corpuscular Hgb 33.8 pg (27.0-32.0); Mean Platelet Vol. 11.3 fl (6.2-12.0); Monocyte# 0.47 X10^3/uL; Monocyte% 11.2 % (0-10); NRBC Flagged by Analyzer 0 % (0-5); Neutrophil # 2.78 X10^3/uL (2.7-7.7); Neutrophil % 66.4 % (47-70); POSITIVE MORPHOLOGY YES; Platelet Count 210 K/mm3 (150-450); RBC Distribution Width CV 21.8 % (11.6-14.6); Red Blood Count 2.99 M/mm3 (4.2-5.4); White Blood Count 4.2 K/mm3 (4.4-11.0)
[2023-06-12 12:04] LABS: Anion Gap 11 (5-15); BUN 67 mg/dL (7-18); BUN/Creat Ratio 10.7 RATIO (10-20); Calcium,Total 8.7 mg/dL (8.5-10.1); Chloride 103 mmol/L (98-107); Creatinine, Serum 6.24 mg/dL (0.55-1.02); EST Glomerular Filtration Rate 7 mL/min (>60); Est Glom Filt Rate - Afr Amer 8 mL/min (>60); Glucose 102 mg/dL (74-106); Potassium 4.6 mmol/L (3.5-5.1); Sodium Level 142 mmol/L (136-145)
[2023-06-12 12:39] LABS: Differential Indicated SCAN CRITERIA MET
[2023-06-12 13:01] LABS: Anisocytosis 1+
== END ==
LOC: OLS.SW 08:00
PROVIDERS: PCP Internal Medicine; Referring Provider Internal Medicine; Visit Provider Internal Medicine
DX: D64.9 Anemia, unspecified (principal); F03.90 Unspecified dementia, unspecified severity, without behavioral disturbance, psychotic disturbance, mood disturbance, and anxiety; I10 Essential (primary) hypertension
CPT/HCPCS: 80048; 85025

== ENCOUNTER → 2023-06-19 | Outpatient (REF) | payer MEDICARE, MEDICAID, SELFPAY ==
[2023-06-19 11:55] LABS: Absolute Lymphocyte Count 0.49 X10^3/uL (0.83-4.51); Absolute Neutrophil Count 3.6 X10^3/uL (2.0-7.7); Basophil# 0.04 X10^3/uL; Basophil% 0.8 % (0-1); Eosinophil# 0.26 X10^3/uL; Eosinophils% 5.3 % (0-5); Hematocrit 35.6 % (37-47); Hemoglobin 11.4 g/dL (12.0-15.0); Lymphocyte # 0.49 X10^3/ul (0.83-4.51); Mean Corpuscular Hgb 34.4 pg (27.0-32.0); Mean Corpuscular Volume 107.6 fL (81-99); Mean Platelet Vol. 11.3 fl (6.2-12.0); Monocyte# 0.43 X10^3/uL; Monocyte% 8.8 % (0-10); NRBC Flagged by Analyzer 0 % (0-5); Neutrophil # 3.63 X10^3/uL (2.7-7.7); Neutrophil % 74.1 % (47-70); POSITIVE DIFFERENTIAL YES; POSITIVE MORPHOLOGY YES; Platelet Count 168 K/mm3 (150-450); RBC Distribution Width CV 20.2 % (11.6-14.6); Red Blood Count 3.31 M/mm3 (4.2-5.4); White Blood Count 4.9 K/mm3 (4.4-11.0)
[2023-06-19 12:00] LABS: Differential Indicated SCAN CRITERIA MET
[2023-06-19 12:05] LABS: Anion Gap 11 (5-15); BUN 65 mg/dL (7-18); BUN/Creat Ratio 9.8 RATIO (10-20); Calcium,Total 8.8 mg/dL (8.5-10.1); Chloride 101 mmol/L (98-107); Creatinine, Serum 6.63 mg/dL (0.55-1.02); EST Glomerular Filtration Rate 6 mL/min (>60); Est Glom Filt Rate - Afr Amer 8 mL/min (>60); Glucose 96 mg/dL (74-106); Potassium 4.4 mmol/L (3.5-5.1); Sodium Level 137 mmol/L (136-145)
== END ==
LOC: OLS.SW 11:49
PROVIDERS: PCP Internal Medicine; Referring Provider Internal Medicine; Visit Provider Internal Medicine
DX: N18.6 End stage renal disease (principal)
CPT/HCPCS: 80048; 85025

== ENCOUNTER → 2023-06-24 | Outpatient (REF) | payer MEDICARE, MEDICAID, SELFPAY ==
[2023-06-24 09:39] LABS: Absolute Lymphocyte Count 1.09 X10^3/uL (0.83-4.51); Absolute Neutrophil Count 2.6 X10^3/uL (2.0-7.7); Basophil# 0.04 X10^3/uL; Basophil% 0.9 % (0-1); Eosinophil# 0.27 X10^3/uL; Hematocrit 36.5 % (37-47); Hemoglobin 11.5 g/dL (12.0-15.0); Lymphocyte # 1.09 X10^3/ul (0.83-4.51); Lymphocyte % 24.2 % (19-41); Mean Corp Hgb Conc 31.5 g/dL (32-36); Mean Corpuscular Hgb 34.5 pg (27.0-32.0); Mean Corpuscular Volume 109.6 fL (81-99); Mean Platelet Vol. 11.2 fl (6.2-12.0); Monocyte# 0.46 X10^3/uL; Monocyte% 10.2 % (0-10); NRBC Flagged by Analyzer 0 % (0-5); Neutrophil # 2.63 X10^3/uL (2.7-7.7); Neutrophil % 58.3 % (47-70); POSITIVE MORPHOLOGY YES; Platelet Count 157 K/mm3 (150-450); RBC Distribution Width CV 20.1 % (11.6-14.6); RBC Distribution Width SD 80.8 fl (35.1-43.9); Red Blood Count 3.33 M/mm3 (4.2-5.4); White Blood Count 4.5 K/mm3 (4.4-11.0)
[2023-06-24 09:40] LABS: Differential Indicated SCAN CRITERIA MET
[2023-06-24 10:03] LABS: ALB/GLOB Ratio 0.9 RATIO (0.9-2.4); AST(SGOT) 19 U/L (15-37); Alanine Aminotransfer ALT/SGPT 18 U/L (13-56); Albumin, Serum 3.3 g/dL (3.2-5.0); Alkaline Phosphatase 112 U/L (45-117); Anion Gap 10 (5-15); BUN 72 mg/dL (7-18); BUN/Creat Ratio 10.4 RATIO (10-20); Calcium,Total 9.4 mg/dL (8.5-10.1); Chloride 105 mmol/L (98-107); Creatinine, Serum 6.92 mg/dL (0.55-1.02); EST Glomerular Filtration Rate 6 mL/min (>60); Est Glom Filt Rate - Afr Amer 7 mL/min (>60); Globulin 3.5 g/dL (2.2-4.2); Glucose 84 mg/dL (74-106); Potassium 4.4 mmol/L (3.5-5.1); Protein, Total 6.8 g/dL (6.4-8.2); Sodium Level 143 mmol/L (136-145)
[2023-06-24 10:09] LABS: Anisocytosis RARE
== END ==
LOC: OLS.SW 07:45
PROVIDERS: PCP Internal Medicine; Referring Provider Internal Medicine; Visit Provider Internal Medicine
DX: E78.5 Hyperlipidemia, unspecified (principal)
CPT/HCPCS: 36415; 80053; 85025